=== PATIENT | male | born 1960 | race Caucasian/White ===

== ENCOUNTER → 2016-07-09 | Outpatient (CLI) | payer OTHER ==
[~2016-07-09] VITALS: Ht 180.3 cm; Wt 115.7 kg
[~2016-07-09] MED LIST: /ESOM40CA; /TAMS4CA; ABIL5TAB; AMBI10TA PO; AMIT25TA2; AMLO5TAB2 PO; ARTHROTEC; BENZ200C44 PO; BUPR150T3 PO; BUPR300T34 PO; BUSP1TAB PO; CEPH500C PO; CHOLPOW XX; CLAR1TAB2 PO; COUM2.5T11 PO; EFFE75CA75 PO; EMLA2.5C TOP; FLEXERIL; FLOM5CAP PO; FOLI1TAB2 PO; Flexeril PO; HYDR-3713 PO; HYDR-3719 PO; HYDR-3781 PO; HYDR10TA PO; IBUP800T; LIDOCAINE 2% INJ 100 MG/5 ML SYRINGE As Ordered ONE; LISI-538 PO; LISI10TA4 PO; LOMO2.5T PO; LOMOTA PO; LOPI600T; LORT5TAB PO; MELO7.5T6 PO; MIRT15TA3 PO; MUPI2OI TOP; NEUR300C; NEUR800T PO; NEXI40CA PO; NS 1,000 ML IV SCH; OMEP40CA2 PO; OXAZ10CA PO; OXYC-299 PO; PRIL40CA PO; PROPOFOL 500 MG/50 ML VIAL As Ordered ONE; QUET5TAB PO; SOMA350T; SOMA350T PO; TAMS0.4C PO; TAMS0.4C2 PO; TENO50TA; THIA100TA PO; TRAM50TA2; TRAZ100T; TRAZ50TA4 PO; TYLE325T5 PO; VENL37.5; VENL37TA PO; WELL75TA PO; WELLTAB38 PO; WELLTAB40 PO; ZANT300T PO; ZEST1TAB7 PO; [UNRECOGNIZED DRUG - OTHER]
--- NOTE | 2016-07-09 09:51 | ROOR ---
Patient Name: Juan Pablo Johnson Procedure Date: 07/09/2016 9:33 AM Date of : 1960 Age: 56 Room: [facility] Gender: Male Note Status: Finalized Procedure: Upper GI endoscopy + Biopsies Indications: Heartburn Providers: Rocky De Los Santos MD Referring MD: Jazmine LONG NP Requesting Provider: Medicines: Monitored Anesthesia Care Complications: No immediate complications. Procedure: Pre-Anesthesia Assessment: - The heart rate, respiratory rate, oxygen saturations, blood pressure, adequacy of pulmonary ventilation, and response to care were monitored throughout the procedure. The Endoscope was introduced through the mouth, and advanced to the second part of duodenum. The upper GI endoscopy was accomplished without difficulty. The patient tolerated the procedure well. Findings: The Z-line was irregular and was found 40 cm from the incisors. Multiple biopsies were obtained with cold forceps for evaluation to rule out Mcelroy's Esophagus randomly at the gastroesophageal junction. The exam of the esophagus was otherwise normal. The exam of the stomach was otherwise normal. The exam of the duodenum was otherwise normal. Impression: - Z-line irregular, 40 cm from the incisors. - Multiple biopsies were obtained at the gastroesophageal junction. - The examination was otherwise normal. Recommendation: - Patient has a contact number available for emergencies. The signs and symptoms of potential delayed complications were discussed with the patient. Return to normal activities tomorrow. Written discharge instructions were provided to the patient. - High fiber diet. - Discharge patient to home. - Follow an antireflux regimen. - Continue present medications. - Await pathology results. - Telephone GI clinic for pathology results in 1 week. - Repeat upper endoscopy for surveillance based on pathology results. - The findings and recommendations were discussed with the patient's family. Rocky De Los Santos MD Rocky De Los Santos MD 07/09/2016 9:51:01 AM This report has been signed electronically. Number of Addenda: 0 Note Initiated On: 07/09/2016 9:33 AM Estimated Blood Loss: Estimated blood loss: none.
--- NOTE | 2016-07-09 10:05 | ROOR ---
Patient Name: Juan Pablo Johnson Procedure Date: 07/09/2016 9:35 AM Date of : 1960 Age: 56 Room: [facility] Gender: Male Note Status: Finalized Procedure: Colonoscopy to Cecum Indications: Screening for colorectal malignant neoplasm, Incidental - Lower abdominal pain Providers: Rocky De Los Santos MD Referring MD: Jazmine LONG NP Requesting Provider: Medicines: Monitored Anesthesia Care Complications: No immediate complications. Procedure: Pre-Anesthesia Assessment: - The heart rate, respiratory rate, oxygen saturations, blood pressure, adequacy of pulmonary ventilation, and response to care were monitored throughout the procedure. The Colonoscope was introduced through the anus and advanced to the cecum, identified by appendiceal orifice and ileocecal valve. The colonoscopy was performed without difficulty. The patient tolerated the procedure well. The quality of the bowel preparation was good. Findings: The perianal and digital rectal examinations were normal. Non-bleeding internal hemorrhoids were found during retroflexion. The hemorrhoids were small and Grade I (internal hemorrhoids that do not prolapse). Multiple small and large-mouthed diverticula were found in the recto-sigmoid colon, sigmoid colon and descending colon. The exam was otherwise without abnormality on direct and retroflexion views. Impression: - Non-bleeding internal hemorrhoids. - Diverticulosis in the recto-sigmoid colon, in the sigmoid colon and in the descending colon. - The examination was otherwise normal on direct and retroflexion views. - No specimens collected. - The exam was otherwise normal to the cecum. Recommendation: - Patient has a contact number available for emergencies. The signs and symptoms of potential delayed complications were discussed with the patient. Return to normal activities tomorrow. Written discharge instructions were provided to the patient. - High fiber diet. - Discharge patient to home. - Continue present medications. - Repeat colonoscopy in 10 years for screening purposes. - Return to referring physician. - The findings and recommendations were discussed with the patient's family. Rocky De Los Santos MD Rocky De Los Santos MD 07/09/2016 10:05:07 AM This report has been signed electronically. Number of Addenda: 0 Note Initiated On: 07/09/2016 9:35 AM Estimated Blood Loss: Estimated blood loss: none.
[2016-07-09 10:35] VITALS: BP 150/86
== END | disposition home or self-care (01) ==
LOC: M OPP 08:00
PROVIDERS: ATTEND Internal Medicine Gastroenterology
DX: R10.32 Left lower quadrant pain (principal); K64.0 First degree hemorrhoids; K57.30 Diverticulosis of large intestine without perforation or abscess without bleeding; R12 Heartburn; K22.8 Other specified diseases of esophagus; I10 Essential (primary) hypertension; Z86.14 Personal history of Methicillin resistant Staphylococcus aureus infection; K21.9 Gastro-esophageal reflux disease without esophagitis; M17.0 Bilateral primary osteoarthritis of knee; M54.5 Low back pain; F41.9 Anxiety disorder, unspecified; F32.9 Major depressive disorder, single episode, unspecified; F03.90 Unspecified dementia, unspecified severity, without behavioral disturbance, psychotic disturbance, mood disturbance, and anxiety; R06.83 Snoring; F17.210 Nicotine dependence, cigarettes, uncomplicated; Z89.021 Acquired absence of right finger(s); Z88.8 Allergy status to other drugs, medicaments and biological substances; Z79.899 Other long term (current) drug therapy

== ENCOUNTER → 2016-07-10 | Outpatient (REF) | payer OTHER ==
[~2016-07-10] MED LIST changes: -LIDOCAINE 2% INJ 100 MG/5 ML SYRINGE As Ordered ONE; -NS 1,000 ML IV SCH; -PROPOFOL 500 MG/50 ML VIAL As Ordered ONE
[2016-07-10 17:17] LABS: ANION GAP 12 MEQ/L (8-16); BLOOD UREA NITROGEN 12 MG/DL (7-18); CALCIUM LEVEL 8.4 MG/DL (8.5-10.1); CARBON DIOXIDE LEVEL 22 MEQ/L (21-32); CHLORIDE LEVEL 108 MEQ/L (98-107); CREATININE FOR GFR 0.92 MG/DL (0.70-1.30); GLOMERULAR FILTRATION RATE > 60.0 (>56); GLUCOSE, FASTING 84 MG/DL (70-105); POTASSIUM SERUM 4.4 MEQ/L (3.5-5.1); SODIUM LEVEL 142 MEQ/L (136-145)
[2016-07-10 18:34] LABS: BASO % 0.5 % (0.0-1.0); EOS # 0.1 K/mm3 (0.0-0.50); EOS % 2.4 % (0.0-3.0); LARGE UNSTAINED CELL # 0.1 K/mm3 (0.0-0.4); LARGE UNSTAINED CELL % 2.7 % (0.0-4.0); LYMPH % 53.6 % (24.0-44.0); MEAN CORPUSCULAR HEMOGLOBIN 31.5 pg (27.0-33.0); MEAN CORPUSCULAR HGB CONC 32.9 g/dl (32.0-36.5); MEAN CORPUSCULAR VOLUME 95.8 fl (80.0-96.0); MONO # 0.2 K/mm3 (0.0-0.8); MONO % 5.2 % (0.0-5.0); NEUTROPHILS # 1.3 K/mm3 (1.8-7.7); NEUTROPHILS % 35.5 % (36.0-66.0); PLATELET COUNT, AUTOMATED 312 k/mm3 (150-450); RED CELL DISTRIBUTION WIDTH 12.6 % (11.5-14.5); WHITE BLOOD COUNT 3.5 K/mm3 (4.0-10.0)
== END ==
LOC: M LAB REF 16:07
PROVIDERS: ATTEND Nurse Practitioner Family
DX: R06.02 Shortness of breath (principal)

== ENCOUNTER → 2016-07-10 | Outpatient (CLI) | payer OTHER ==
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
== END ==
LOC: M PAIN 13:20
PROVIDERS: ATTEND Nurse Practitioner Family
DX: Z09 Encounter for follow-up examination after completed treatment for conditions other than malignant neoplasm (principal); G89.29 Other chronic pain; M47.817 Spondylosis without myelopathy or radiculopathy, lumbosacral region; M46.1 Sacroiliitis, not elsewhere classified; F31.9 Bipolar disorder, unspecified; K21.9 Gastro-esophageal reflux disease without esophagitis; M06.9 Rheumatoid arthritis, unspecified; F17.200 Nicotine dependence, unspecified, uncomplicated; Z88.5 Allergy status to narcotic agent; Z88.8 Allergy status to other drugs, medicaments and biological substances; Z79.891 Long term (current) use of opiate analgesic; Z79.899 Other long term (current) drug therapy; Z86.59 Personal history of other mental and behavioral disorders

== ENCOUNTER → 2016-07-22 | Outpatient (CLI) | payer OTHER ==
[~2016-07-22] MED LIST changes: +ALBU17IN INH; +TESS100C PO
[2016-07-22 12:55] LABS: BASO % 0.4 % (0.0-1.0); EOS # 0.1 K/mm3 (0.0-0.50); EOS % 1.9 % (0.0-3.0); LARGE UNSTAINED CELL # 0.2 K/mm3 (0.0-0.4); LARGE UNSTAINED CELL % 4.4 % (0.0-4.0); LYMPH # 1.9 K/mm3 (1.5-4.5); LYMPH % 35.2 % (24.0-44.0); MEAN CORPUSCULAR HGB CONC 32.1 g/dl (32.0-36.5); MEAN CORPUSCULAR VOLUME 96.6 fl (80.0-96.0); MONO # 0.3 K/mm3 (0.0-0.8); MONO % 7.1 % (0.0-5.0); NEUTROPHILS # 2.4 K/mm3 (1.8-7.7); PLATELET COUNT, AUTOMATED 187 k/mm3 (150-450); RED CELL DISTRIBUTION WIDTH 12.6 % (11.5-14.5); WHITE BLOOD COUNT 4.7 K/mm3 (4.0-10.0)
[2016-07-22 13:10] LABS: ANION GAP 6 MEQ/L (8-16); BLOOD UREA NITROGEN 14 MG/DL (7-18); CALCIUM LEVEL 8.9 MG/DL (8.5-10.1); CARBON DIOXIDE LEVEL 30 MEQ/L (21-32); CHLORIDE LEVEL 105 MEQ/L (98-107); CREATININE FOR GFR 0.93 MG/DL (0.70-1.30); GLOMERULAR FILTRATION RATE > 60.0 (>56); GLUCOSE, FASTING 107 MG/DL (70-105); POTASSIUM SERUM 4.3 MEQ/L (3.5-5.1); SODIUM LEVEL 141 MEQ/L (136-145)
== END ==
LOC: M LAB 12:01
PROVIDERS: ATTEND Nurse Practitioner Family
DX: R06.02 Shortness of breath (principal)

== ENCOUNTER → 2016-07-30 | Outpatient (CLI) | payer OTHER ==
[~2016-07-30] MED LIST changes: +BUPIVACAINE HCL 0.25% 30 ML VIAL As Ordered ONE; +ISOVUE-M 300 61% 15ML VIAL (Q9967) As Ordered ONE; +LIDOCAINE 1% SDV INJ 30 ML VIAL As Ordered ONE; +TRIAMCINOLONE ACETONIDE SUSP 40 MG/ML VIAL (J3301) As Ordered ONE; +diazePAM 5 MG TAB As Ordered ONE; +oxyCODONE 5MG TAB As Ordered ONE
--- NOTE | 2016-07-30 10:02 | REP ---
PARTIAL SI JOINT SERIES: Three views. HISTORY: Injection procedure for pain. 29 seconds of fluoroscopy time is reported. FINDINGS: A sequence of three last image hold fluoroscopic spot radiographs of the SI joints bilaterally document needle position and contrast injection associated with SI joint injection procedure. Signed by Magdi Morris MD 07/30/2016 10:14 A
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
== END ==
LOC: M PAIN 08:40
PROVIDERS: ATTEND Anesthesiology
DX: G89.29 Other chronic pain (principal); M46.1 Sacroiliitis, not elsewhere classified; M53.88 Other specified dorsopathies, sacral and sacrococcygeal region; F31.9 Bipolar disorder, unspecified; K21.9 Gastro-esophageal reflux disease without esophagitis; M06.9 Rheumatoid arthritis, unspecified; Z86.59 Personal history of other mental and behavioral disorders; Z88.8 Allergy status to other drugs, medicaments and biological substances; Z79.891 Long term (current) use of opiate analgesic; Z79.899 Other long term (current) drug therapy
CPT/HCPCS: G0260; J3301; Q9967

== ENCOUNTER 2016-09-12 17:13 | Emergency (ER) | payer OTHER ==
[~2016-09-12] VITALS: Ht 180.3 cm; Wt 112.0 kg
[~2016-09-12 17:13] MED LIST changes: -BUPIVACAINE HCL 0.25% 30 ML VIAL As Ordered ONE; -ISOVUE-M 300 61% 15ML VIAL (Q9967) As Ordered ONE; -LIDOCAINE 1% SDV INJ 30 ML VIAL As Ordered ONE; -TRIAMCINOLONE ACETONIDE SUSP 40 MG/ML VIAL (J3301) As Ordered ONE; -diazePAM 5 MG TAB As Ordered ONE; -oxyCODONE 5MG TAB As Ordered ONE
[2016-09-12] MEDS ORDERED: LIDOCAINE 2% MDV 20 ML VIAL As Ordered ONE (17:55)
[2016-09-12 19:16] VITALS: BP 158/98
== END 2016-09-12 19:24 | disposition home or self-care (01) ==
LOC: M ED 17:46
DX: S61.210A Laceration without foreign body of right index finger without damage to nail, initial encounter (principal); W25.XXXA Contact with sharp glass, initial encounter; Y92.89 Other specified places as the place of occurrence of the external cause; Y93.89 Activity, other specified; Y99.8 Other external cause status

== ENCOUNTER 2016-11-27 10:13 | Emergency (ER) | payer OTHER ==
[~2016-11-27] VITALS: Ht 180.3 cm; Wt 250.0 kg
[~2016-11-27 10:13] MED LIST changes: -BENZ200C44 PO; +BENZ200C53 PO; -COUM2.5T11 PO; +COUM2.5T17 PO; -FOLI1TAB2 PO; +FOLI1TAB4 PO; -MELO7.5T6 PO; +MELO7.5T7 PO; -OXAZ10CA PO; +OXAZ10CA3 PO; +OXYC-141 PO; -OXYC-299 PO; +TRAZ50TA11 PO; -TRAZ50TA4 PO
[2016-11-27] MEDS ORDERED: CARI350T (10:21)
[2016-11-27] MEDS ORDERED: KETOROLAC 60 MG/2 ML VIAL (J1885) IM ONE (10:45)
[2016-11-27] MEDS ORDERED: LIDO5DIS41 TD (10:56)
[2016-11-27 11:04] VITALS: BP 145/99
== END 2016-11-27 11:15 | disposition home or self-care (01) ==
LOC: M ED 10:13
DX: M54.5 Low back pain (principal); I10 Essential (primary) hypertension; F32.9 Major depressive disorder, single episode, unspecified; N40.0 Benign prostatic hyperplasia without lower urinary tract symptoms; F41.9 Anxiety disorder, unspecified; F19.10 Other psychoactive substance abuse, uncomplicated; Z87.442 Personal history of urinary calculi; F17.200 Nicotine dependence, unspecified, uncomplicated; Z79.899 Other long term (current) drug therapy; Z88.6 Allergy status to analgesic agent
CPT/HCPCS: 96372; 99282; J1885

== ENCOUNTER → 2016-12-10 | Outpatient (CLI) | payer OTHER ==
[~2016-12-10] MED LIST changes: +ACETGRA; +CARI350T; +IBUP-1022 PO; +LIDO5DIS41 TD; +MELO15TA4
--- NOTE | 2016-12-10 11:51 | REP ---
LUMBAR SPINE, EIGHT VIEWS: HISTORY: Back pain. COMPARISON: 05/18/2014. There is no acute fracture or subluxation. The intervertebral discs are decreased in height. Vacuum phenomenon is present at the L5-S1 level. These findings are consistent with disc degeneration. Osteophytes are present throughout the lumbar spine. There is sclerosis of the end plates of the L4-S1 vertebral bodies. There is narrowing of the L4-5 and L5-S1 facet joints. IMPRESSION: Degenerative change as described above. Signed by Tyrell Duarte MD 12/10/2016 11:54 A
== END ==
LOC: M RAD 11:13
PROVIDERS: ATTEND Nurse Practitioner Family
DX: M51.36 Other intervertebral disc degeneration, lumbar region (principal)

== ENCOUNTER 2017-02-03 11:43 | Emergency (ER) | payer OTHER ==
[~2017-02-03] VITALS: Ht 180.3 cm; Wt 111.6 kg
[~2017-02-03 11:43] MED LIST changes: -ACETGRA; -IBUP-1022 PO; -MELO15TA4
[2017-02-03] MEDS ORDERED: ACETGRA (12:13)
[2017-02-03] MEDS ORDERED: MELO15TA4 (12:13)
[2017-02-03] MEDS ORDERED: PERCOCET 5MG/325MG TAB PO ONE (12:30)
--- NOTE | 2017-02-03 13:42 | REP ---
LEFT RIB SERIES: Four views of the left ribs performed. There appear to be old healed fractures of mid left ribs but no acute fracture is seen. An accompanying view of the chest demonstrates no acute infiltrate or pneumothorax. The heart is normal in size. IMPRESSION: No evidence of acute left rib fracture. Signed by Michel Nicholson MD 02/04/2017 07:53 P
[2017-02-03] MEDS ORDERED: IBUP-1022 PO (14:00)
[2017-02-03 14:12] VITALS: BP 142/93
== END 2017-02-03 14:18 | disposition home or self-care (01) ==
LOC: M ED 11:43
DX: S20.212A Contusion of left front wall of thorax, initial encounter (principal); S20.222A Contusion of left back wall of thorax, initial encounter; W19.XXXA Unspecified fall, initial encounter; Y92.099 Unspecified place in other non-institutional residence as the place of occurrence of the external cause; Y93.9 Activity, unspecified; Y99.9 Unspecified external cause status; I10 Essential (primary) hypertension; N40.0 Benign prostatic hyperplasia without lower urinary tract symptoms; F17.200 Nicotine dependence, unspecified, uncomplicated; Z79.899 Other long term (current) drug therapy; Z88.8 Allergy status to other drugs, medicaments and biological substances

== ENCOUNTER 2017-03-31 12:55 | Emergency (ER) | payer MEDICAID, OTHER ==
[~2017-03-31] VITALS: Ht 182.9 cm; Wt 113.6 kg
[~2017-03-31 12:55] MED LIST changes: +ACETGRA; +IBUP-1022 PO; +MELO15TA4
[2017-03-31] MEDS ORDERED: ACET120S (13:02)
--- NOTE | 2017-03-31 15:58 | REP ---
Chest x-ray: Two views: History: Cough. Comparison study February 03, 2017. Findings: The lungs are well inflated and free of infiltrate. Cardiomediastinal silhouette is unremarkable and unchanged. Pulmonary vasculature is not increased. No bony abnormalities seen. Impression: No active disease. Signed by Magdi Morris MD 03/31/2017 05:08 P
[2017-03-31] MEDS ORDERED: ZITHTAB PO (16:15)
[2017-03-31 16:44] VITALS: BP 133/90
== END 2017-03-31 16:45 | disposition home or self-care (01) ==
LOC: M ED 12:55
DX: J20.9 Acute bronchitis, unspecified (principal); I51.9 Heart disease, unspecified; I10 Essential (primary) hypertension; F17.200 Nicotine dependence, unspecified, uncomplicated; Z79.899 Other long term (current) drug therapy; Z88.1 Allergy status to other antibiotic agents

== ENCOUNTER 2017-04-17 02:16 | Emergency (ER) | payer OTHER ==
[2017-04-17] MEDS: ACETAMINOPHEN TAB 650MG DOSE (2X325MG) PO (04:30)
== END 2017-04-17 05:03 | disposition home or self-care (01) ==
LOC: M ED 02:16
DX: G89.29 Other chronic pain (principal); Z76.5 Malingerer [conscious simulation]; I10 Essential (primary) hypertension; K21.9 Gastro-esophageal reflux disease without esophagitis; Z87.898 Personal history of other specified conditions; Z86.59 Personal history of other mental and behavioral disorders; Z96.651 Presence of right artificial knee joint; Z79.899 Other long term (current) drug therapy; Z88.6 Allergy status to analgesic agent
CPT/HCPCS: 73560

== ENCOUNTER 2017-07-23 03:12 | Emergency (ER) | payer OTHER, MEDICAID ==
[2017-07-23] MEDS: NS 1,000 ML IV (03:45)
[2017-07-23 03:57] LABS: ETHYL ALCOHOL (ETHANOL) 0.328 % (0.000-0.010)
== END 2017-07-23 08:10 | disposition home or self-care (01) ==
LOC: M ED 03:12
DX: F10.929 Alcohol use, unspecified with intoxication, unspecified (principal); F14.929 Cocaine use, unspecified with intoxication, unspecified; Z79.899 Other long term (current) drug therapy; Z88.8 Allergy status to other drugs, medicaments and biological substances
CPT/HCPCS: 73560

== ENCOUNTER → 2017-08-01 | Outpatient (CLI) | payer OTHER ==
[2017-08-01 11:32] LABS: CREATININE FOR GFR 1.01 MG/DL (0.70-1.30); GLOMERULAR FILTRATION RATE > 60.0 (>56)
[2017-08-01 11:32] LABS: BLOOD UREA NITROGEN 16 MG/DL (7-18)
== END ==
LOC: M LAB 10:29
DX: M96.1 Postlaminectomy syndrome, not elsewhere classified (principal); M79.1 Myalgia; M47.817 Spondylosis without myelopathy or radiculopathy, lumbosacral region
CPT/HCPCS: 82565

== ENCOUNTER → 2017-08-04 | Outpatient (CLI) | payer OTHER | LOC: M PLARAD 13:39 | DX: M96.1 Postlaminectomy syndrome, not elsewhere classified (principal); M79.1 Myalgia; M47.819 Spondylosis without myelopathy or radiculopathy, site unspecified | CPT/HCPCS: 72158 ==

== ENCOUNTER 2017-08-26 21:30 | Emergency (ER) | payer OTHER ==
[2017-08-26 22:02] LABS: BASO # 0.1 10^3/uL (0.0-0.2); BASO % 0.5 % (0.0-1.0); EOS % 0.4 % (0.0-3.0); HEMATOCRIT 43.1 % (42.0-52.0); HEMOGLOBIN 14.5 g/dl (13.5-17.5); IMMATURE GRANULOCYTE % 0.4 % (0-3.0); LYMPH # 3.5 10^3/uL (1.5-4.5); LYMPH % 30.6 % (24.0-44.0); MEAN CORPUSCULAR HEMOGLOBIN 30.7 pg (27.0-33.0); MEAN CORPUSCULAR HGB CONC 33.6 g/dl (32.0-36.5); MEAN CORPUSCULAR VOLUME 91.1 fl (80.0-96.0); MONO # 1.1 10^3/uL (0.0-0.8); MONO % 9.6 % (0.0-5.0); NEUTROPHILS # 6.6 10^3/uL (1.8-7.7); NEUTROPHILS % 58.5 % (36.0-66.0); PLATELET COUNT, AUTOMATED 238 10^3/uL (150-450); RED BLOOD COUNT 4.73 10^6/uL (4.30-6.10); RED CELL DISTRIBUTION WIDTH 12.8 % (11.5-14.5); WHITE BLOOD COUNT 11.3 10^3/uL (4.0-10.0)
[2017-08-26 22:12] LABS: INR 0.91; PROTHROMBIN TIME 12.3 SECONDS (12.4-14.5)
[2017-08-26 22:30] LABS: ANION GAP 10 MEQ/L (8-16); BLOOD UREA NITROGEN 17 MG/DL (7-18); CALCIUM LEVEL 8.8 MG/DL (8.5-10.1); CARBON DIOXIDE LEVEL 25 MEQ/L (21-32); CHLORIDE LEVEL 104 MEQ/L (98-107); CPK CREATINE PHOSPHOKINASE 782 U/L (39-308); GLUCOSE, FASTING 92 MG/DL (70-100); POTASSIUM SERUM 3.8 MEQ/L (3.5-5.1); SODIUM LEVEL 139 MEQ/L (136-145)
[2017-08-26 22:31] LABS: CK-MB VALUE MASS 33.3 NG/ML (<3.6); MB/CK RELATIVE INDEX 4.25 (< OR =4)
[2017-08-26 22:33] LABS: TROPONIN I 1.66 NG/ML (< 0.10)
[2017-08-26] MEDS: NITROGLYCERIN 0.4 MG SUBL TABLET SL ×3 (22:54→23:32)
[2017-08-26] MEDS: ASPIRIN 81 MG CHEW TABLET PO (22:59)
[2017-08-26 23:00] LABS: PARTIAL THROMBOPLASTIN TIME 27.1 SECONDS (26.8-37.9)
[2017-08-26] MEDS: HEPARIN SOD (PORCINE) 5000 UNITS/ML VIAL IV (23:00)
[2017-08-26] MEDS: HEPARIN DRIP 25,000 UNITS in APPROPRIATE DILUENT 1 EA IV (23:05)
== END 2017-08-27 00:38 | disposition short-term general hospital (02) ==
LOC: M ED 08-27 00:38
DX: I21.4 Non-ST elevation (NSTEMI) myocardial infarction (principal); Z79.899 Other long term (current) drug therapy; Z88.8 Allergy status to other drugs, medicaments and biological substances; F19.10 Other psychoactive substance abuse, uncomplicated; F17.210 Nicotine dependence, cigarettes, uncomplicated; F14.20 Cocaine dependence, uncomplicated
CPT/HCPCS: 71045

== ENCOUNTER → 2017-10-09 | Outpatient (CLI) | payer OTHER ==
[2017-10-09 09:59] LABS: CHOLESTEROL LEVEL 113 MG/DL (<200); CHOLESTEROL RISK RATIO 2.306 (<5); HDL CHOLESTEROL 49 MG/DL (>40); LDL CHOLESTEROL 27.6 MG/DL (<100); NON-HDL-C 64 MG/DL; TRIGLYCERIDES LEVEL 182 MG/DL (<150)
== END ==
LOC: M LAB 08:39
DX: I25.10 Atherosclerotic heart disease of native coronary artery without angina pectoris (principal)
CPT/HCPCS: 80061

== ENCOUNTER 2018-01-24 00:50 | Emergency (ER) | payer OTHER ==
[2018-01-24] MEDS: NS 1,000 ML IV (01:15)
[2018-01-24 01:23] LABS: HEMATOCRIT 44.5 % (42.0-52.0); HEMOGLOBIN 15.1 g/dl (13.5-17.5); MEAN CORPUSCULAR HEMOGLOBIN 32.5 pg (27.0-33.0); MEAN CORPUSCULAR HGB CONC 33.9 g/dl (32.0-36.5); MEAN CORPUSCULAR VOLUME 95.9 fl (80.0-96.0); PLATELET COUNT, AUTOMATED 216 10^3/uL (150-450); RED BLOOD COUNT 4.64 10^6/uL (4.30-6.10); RED CELL DISTRIBUTION WIDTH 12.7 % (11.5-14.5); WHITE BLOOD COUNT 7.4 10^3/uL (4.0-10.0)
[2018-01-24 01:48] LABS: AMPHETAMINES LEVEL URINE NEGATIVE (NEGATIVE); BARBITURATES URINE NEGATIVE (NEGATIVE); BENZODIAZEPINES URINE NEGATIVE (NEGATIVE); CANNABINOIDS URINE NEGATIVE (NEGATIVE); COCAINE METABOLITE URINE POSITIVE (NEGATIVE); METHADONE URINE NEGATIVE (NEGATIVE); OPIATES URINE NEGATIVE (NEGATIVE); PHENCYCLIDINE URINE NEGATIVE (NEGATIVE)
[2018-01-24 02:06] LABS: ALBUMIN 3.7 GM/DL (3.2-5.2); ALBUMIN/GLOBULIN RATIO 1.12 (1.00-1.93); ALKALINE PHOSPHATASE 57 U/L (45-117); ALT/SGPT 36 U/L (12-78); ANION GAP 14 MEQ/L (8-16); AST/SGOT 36 U/L (7-37); BILIRUBIN,DIRECT < 0.1 MG/DL (0.0-0.2); BILIRUBIN,TOTAL 0.3 MG/DL (0.2-1.0); BLOOD UREA NITROGEN 11 MG/DL (7-18); CALCIUM LEVEL 7.9 MG/DL (8.5-10.1); CARBON DIOXIDE LEVEL 19 MEQ/L (21-32); CHLORIDE LEVEL 108 MEQ/L (98-107); CPK CREATINE PHOSPHOKINASE 225 U/L (39-308); ETHYL ALCOHOL (ETHANOL) 0.288 % (0.000-0.010); GLOMERULAR FILTRATION RATE > 60.0 (>56); GLUCOSE, FASTING 92 MG/DL (70-100); SALICYLATE LEVEL 4.2 MG/DL (5.0-30.0); SODIUM LEVEL 141 MEQ/L (136-145)
[2018-01-24 02:07] LABS: ACETAMINOPHEN LEVEL < 2.0 UG/ML (10.0-30.0)
[2018-01-24] MEDS ORDERED: MULTIVITAMIN -ADULT INJECTION 10 ML, THIAMINE INJection 100 MG, FOLIC ACID 1 MG in NS 1... IV (02:30)
[2018-01-24] MEDS: diphenhydrAMINE INJ 50MG/ML VIAL (J1200) IM (03:07)
[2018-01-24] MEDS: HALOPERIDOL 5 MG/ML VIAL (J1630) IM (03:07)
== END 2018-01-24 10:50 | disposition home or self-care (01) ==
LOC: M ED 00:50
DX: F10.988 Alcohol use, unspecified with other alcohol-induced disorder (principal); F14.10 Cocaine abuse, uncomplicated; F99 Mental disorder, not otherwise specified; R94.31 Abnormal electrocardiogram [ECG] [EKG]; I25.10 Atherosclerotic heart disease of native coronary artery without angina pectoris; I10 Essential (primary) hypertension; K21.9 Gastro-esophageal reflux disease without esophagitis; F33.9 Major depressive disorder, recurrent, unspecified; M54.9 Dorsalgia, unspecified; G89.29 Other chronic pain; Z95.5 Presence of coronary angioplasty implant and graft; Z88.8 Allergy status to other drugs, medicaments and biological substances
CPT/HCPCS: J1200

== ENCOUNTER 2018-04-28 00:43 | Emergency (ER) | payer OTHER ==
[~2018-04-28] VITALS: Ht 182.9 cm; Wt 109.1 kg
[~2018-04-28 00:43] MED LIST changes: +ACET120S; +ACET1TAB16 PO; -AMLO5TAB2 PO; +AMLO5TAB6 PO; -BENZ200C53 PO; +BENZ200C70 PO; +CARI1TAB7; -CARI350T; +DULO1CAP3; +DULO30CA PO; +EFFE75CA2 PO; -EFFE75CA75 PO; +FLOM0.4C39 PO; -FLOM5CAP PO; +FOLI1TAB11 PO; -FOLI1TAB4 PO; +GABA-845 PO; +GABA800T4; -HYDR-3781 PO; +HYDR2.5T34 PO; +HYDRO50TAB PO; +MELO15TA28; +MELO15TA28 PO; -MELO15TA4; +NICO21PAT TD; +QUET1TAB8 PO; +TRAZ-160 PO; -TRAZ50TA11 PO; +VENTAER INH; -ZANT300T PO; +ZANT300T9 PO; +ZITHTAB PO; +ZOLP10TA2; +ZOLP5TAB PO
[2018-04-28 01:27] VITALS: BP 128/84
--- NOTE | 2018-04-28 02:15 | REP ---
Clinical: Right hip trauma Technique: Frontal view of the pelvis with neutral and frog lateral views of the right hip. Findings: Osseous structures and joint spaces are intact and normal. Hip joints appear symmetric on frontal pelvic radiograph. No acute fracture dislocation. No evidence for healed injury. No significant degenerative or congenital abnormalities are appreciated. Surrounding soft tissues are unremarkable. Impression: Normal pelvis and right hip series. Electronically Signed by Nikita Smith MD 04/28/2018 02:06 A
== END 2018-04-28 02:12 | disposition home or self-care (01) ==
LOC: M ED 00:43
DX: M25.551 Pain in right hip (principal); F10.120 Alcohol abuse with intoxication, uncomplicated; W19.XXXA Unspecified fall, initial encounter; Y92.410 Unspecified street and highway as the place of occurrence of the external cause; I10 Essential (primary) hypertension; K21.9 Gastro-esophageal reflux disease without esophagitis; F19.10 Other psychoactive substance abuse, uncomplicated; J42 Unspecified chronic bronchitis; Z88.8 Allergy status to other drugs, medicaments and biological substances; Z79.899 Other long term (current) drug therapy

== ENCOUNTER 2018-05-01 21:57 | Emergency (ER) | payer OTHER ==
[~2018-05-01] VITALS: Ht 180.3 cm; Wt 109.1 kg
[2018-05-01] MEDS ORDERED: LISI40TA PO (22:17)
[2018-05-01] MEDS ORDERED: ATOR1TAB21 PO (22:17)
[2018-05-01] MEDS ORDERED: SM A1TAB PO (22:17)
[2018-05-01] MEDS ORDERED: METO1TAB32 PO (22:17)
[2018-05-01] MEDS ORDERED: PANT40TA3 PO (22:17)
[2018-05-01] MEDS ORDERED: CLOP75TA2 PO (22:17)
[2018-05-01] MEDS ORDERED: GI COCKTAIL 50ML BTL(HYOSCYAMINE/MAALOX/LIDOCAINE VISCOUS)(1:3:1) PO ONE (22:30)
[2018-05-01] MEDS ORDERED: ASPIRIN 81 MG CHEW TABLET PO ONE (22:30)
[2018-05-01 22:33] LABS: BASO # 0.1 10^3/uL (0.0-0.2); BASO % 0.6 % (0.0-1.0); EOS # 0.1 10^3/uL (0.0-0.50); EOS % 1.3 % (0.0-3.0); HEMATOCRIT 47.7 % (42.0-52.0); HEMOGLOBIN 16.4 g/dl (13.5-17.5); LYMPH # 3.1 10^3/uL (1.5-4.5); LYMPH % 40.2 % (24.0-44.0); MEAN CORPUSCULAR HEMOGLOBIN 32.1 pg (27.0-33.0); MEAN CORPUSCULAR HGB CONC 34.4 g/dl (32.0-36.5); MEAN CORPUSCULAR VOLUME 93.3 fl (80.0-96.0); MONO # 0.6 10^3/uL (0.0-0.8); MONO % 7.8 % (0.0-5.0); NEUTROPHILS # 3.9 10^3/uL (1.8-7.7); NEUTROPHILS % 49.8 % (36.0-66.0); PLATELET COUNT, AUTOMATED 342 10^3/uL (150-450); RED BLOOD COUNT 5.11 10^6/uL (4.30-6.10); WHITE BLOOD COUNT 7.7 10^3/uL (4.0-10.0)
[2018-05-01] MEDS ORDERED: LABETALOL HCL 100 MG/20 ML VIAL IV STA (23:01)
[2018-05-01 23:10] LABS: INR 0.97
[2018-05-01 23:19] LABS: AMPHETAMINES LEVEL URINE NEGATIVE (NEGATIVE); BARBITURATES URINE NEGATIVE (NEGATIVE); BENZODIAZEPINES URINE NEGATIVE (NEGATIVE); CANNABINOIDS URINE NEGATIVE (NEGATIVE); COCAINE METABOLITE URINE POSITIVE (NEGATIVE); METHADONE URINE NEGATIVE (NEGATIVE); OPIATES URINE NEGATIVE (NEGATIVE); PHENCYCLIDINE URINE NEGATIVE (NEGATIVE)
[2018-05-01 23:26] LABS: BLOOD UREA NITROGEN 10 MG/DL (7-18); CALCIUM LEVEL 8.6 MG/DL (8.5-10.1); CARBON DIOXIDE LEVEL 20 MEQ/L (21-32); CHLORIDE LEVEL 105 MEQ/L (98-107); CPK CREATINE PHOSPHOKINASE 355 U/L (39-308); CREATININE FOR GFR 0.96 MG/DL (0.70-1.30); ETHYL ALCOHOL (ETHANOL) 0.128 % (0.000-0.010); GLOMERULAR FILTRATION RATE > 60.0 (>56); GLUCOSE, FASTING 83 MG/DL (70-100); POTASSIUM SERUM 3.9 MEQ/L (3.5-5.1); SODIUM LEVEL 139 MEQ/L (136-145); TROPONIN I < 0.02 NG/ML (< 0.10)
[2018-05-01] MEDS ORDERED: NITROGLYCERIN 0.4 MG SUBL TABLET SL PRN (23:30)
[2018-05-02] MEDS ORDERED: PANTOPRAZOLE 40MG INJ (PROTONIX) (C9113) IV ONE
[2018-05-02 03:43] LABS: CPK CREATINE PHOSPHOKINASE 308 U/L (39-308); MB/CK RELATIVE INDEX 1.27 (< OR =4); TROPONIN I < 0.02 NG/ML (< 0.10)
[2018-05-02 04:46] VITALS: BP 116/68
--- NOTE | 2018-05-02 07:59 | ECGEPIP ---
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
--- NOTE | 2018-05-02 08:08 | ECGEPIP ---
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
--- NOTE | 2018-05-02 08:42 | REP ---
Portable chest x-ray: Single view. History: Chest pain. Comparison study: September 07, 2017. Findings: EKG monitoring electrodes overlie the chest. The lungs are well inflated and clear. Pleural angles are sharp. Heart size is normal. The aorta slightly tortuous. Pulmonary vasculature is not increased. No significant bony abnormality is seen. There is an old healed rib fracture on the left. Impression: No active disease. Electronically Signed by Magdi Morris MD 05/02/2018 08:34 A
== END 2018-05-02 05:04 | disposition home or self-care (01) ==
LOC: M ED 21:57
DX: F10.10 Alcohol abuse, uncomplicated (principal); F11.10 Opioid abuse, uncomplicated; Z59.0 Homelessness; I10 Essential (primary) hypertension; G89.29 Other chronic pain; I25.10 Atherosclerotic heart disease of native coronary artery without angina pectoris; Z79.899 Other long term (current) drug therapy; Z79.82 Long term (current) use of aspirin; Z88.8 Allergy status to other drugs, medicaments and biological substances; F17.210 Nicotine dependence, cigarettes, uncomplicated
CPT/HCPCS: 71045; 80048; 80307; 82550; 82553; 85025; 85610; 93005; 93041; 94760; 96374; 99285; C9113; G0480

== ENCOUNTER 2018-05-25 10:22 | Inpatient (IN) | payer OTHER ==
[~2018-05-25] VITALS: Ht 180.3 cm; Wt 112.4 kg
[~2018-05-25 10:22] MED LIST changes: +ATOR1TAB21 PO; +CARI1TAB7 PO; +CLOP75TA2 PO; -DULO1CAP3; +DULO1CAP3 PO; -GABA800T4; +GABA800T4 PO; +LISI40TA PO; +METO1TAB32 PO; +PANT40TA3 PO; +SM A1TAB PO; -ZOLP10TA2; +ZOLP10TA2 PO
[2018-05-25] MEDS ORDERED: NS 1,000 ML IV ONE ×2 (10:45→11:45)
[2018-05-25 10:54] LABS: BASO % 0.3 % (0.0-1.0); EOS # 0.2 10^3/uL (0.0-0.50); EOS % 2.3 % (0.0-3.0); HEMOGLOBIN 14.3 g/dl (13.5-17.5); LYMPH # 1.8 10^3/uL (1.5-4.5); LYMPH % 24.2 % (24.0-44.0); MEAN CORPUSCULAR HGB CONC 33.3 g/dl (32.0-36.5); MEAN CORPUSCULAR VOLUME 93.1 fl (80.0-96.0); MONO # 0.7 10^3/uL (0.0-0.8); MONO % 9.6 % (0.0-5.0); NEUTROPHILS # 4.6 10^3/uL (1.8-7.7); NEUTROPHILS % 63.2 % (36.0-66.0); PLATELET COUNT, AUTOMATED 270 10^3/uL (150-450); RED BLOOD COUNT 4.62 10^6/uL (4.30-6.10); WHITE BLOOD COUNT 7.3 10^3/uL (4.0-10.0)
--- NOTE | 2018-05-25 11:08 | REP ---
Chest one-view HISTORY: Overdose Comparison: 05/01/2018 The lungs are clear. The heart is normal in size. The pulmonary vasculature is normal in appearance. Impression: No acute disease. Electronically Signed by Tyrell Duarte MD 05/25/2018 11:00 A
[2018-05-25 11:09] LABS: ABG BASE EXCESS -1.4 (-2.0-2.0); ABG HCO3 21.7 MEQ/L (22.0-26.0); ABG O2 SATURATION 95.9 % (95.0-99.0); ABG PARTIAL PRESSURE CO2 32.3 mmHg (35.0-45.0); ABG PARTIAL PRESSURE O2 77.4 mmHg (75.0-100.0); ABG STANDARD HCO3 23.3 MEQ/L (22.0-26.0); ABG TOTAL CO2 22.7 MEQ/L (22.0-29.0); ABG pH (ARTERIAL) 7.445 UNITS (7.350-7.450)
[2018-05-25] MEDS ORDERED: CHARCOAL ACTIVATED LIQUID 25 GM/120 ML BTL PO ONE (11:15)
[2018-05-25] MEDS ORDERED: ASPI81TAEC PO (11:24)
[2018-05-25] MEDS ORDERED: VENTAER INH (11:24)
[2018-05-25] MEDS ORDERED: NITR4TASL SL (11:24)
[2018-05-25 11:41] LABS: ACETAMINOPHEN LEVEL < 2.0 UG/ML (10.0-30.0); ALT/SGPT 52 U/L (12-78); BILIRUBIN,DIRECT 0.2 MG/DL (0.0-0.2); BILIRUBIN,TOTAL 0.6 MG/DL (0.2-1.0); BLOOD UREA NITROGEN 16 MG/DL (7-18); CALCIUM LEVEL 8.9 MG/DL (8.5-10.1); CARBON DIOXIDE LEVEL 28 MEQ/L (21-32); CHLORIDE LEVEL 102 MEQ/L (98-107); CPK CREATINE PHOSPHOKINASE 855 U/L (39-308); CREATININE FOR GFR 1.09 MG/DL (0.70-1.30); ETHYL ALCOHOL (ETHANOL) < 0.003 % (0.000-0.010); GLOMERULAR FILTRATION RATE > 60.0 (>56); GLUCOSE, FASTING 124 MG/DL (70-100); SALICYLATE LEVEL < 1.7 MG/DL (5.0-30.0); SODIUM LEVEL 140 MEQ/L (136-145); TOTAL PROTEIN 6.8 GM/DL (6.4-8.2)
[2018-05-25 11:41] LABS: AMPHETAMINES LEVEL URINE NEGATIVE (NEGATIVE); BARBITURATES URINE NEGATIVE (NEGATIVE); BENZODIAZEPINES URINE NEGATIVE (NEGATIVE); CANNABINOIDS URINE NEGATIVE (NEGATIVE); COCAINE METABOLITE URINE POSITIVE (NEGATIVE); METHADONE URINE NEGATIVE (NEGATIVE); OPIATES URINE NEGATIVE (NEGATIVE); PHENCYCLIDINE URINE NEGATIVE (NEGATIVE)
--- NOTE | 2018-05-25 12:01 | REP ---
Duplex extremity venous ultrasound: Bilateral lower extremities. History: Calf pain. Question DVT. Findings: The deep veins are anechoic and fully compressible from the groin to the popliteal fossa in the left and right lower extremity. Color flow imaging is homogeneous. Spectral Doppler interrogation demonstrates intact respiratory variation in flow and normal manual augmentation of flow. There is no evidence of deep vein thrombosis. There is a 3.2 x 1.3 x 0.6 cm left-sided Teran's cyst. Impression: Small Teran's cyst on the left, otherwise negative bilateral lower extremity duplex venous ultrasound. No evidence of deep vein thrombosis. Electronically Signed by Magdi Morris MD 05/25/2018 11:53 A
[2018-05-25] MEDS ORDERED: ALBUTEROL 90 MCG/ACT 8GM HFA INHALER INH PRN (13:00)
[2018-05-25] MEDS: NS 1,000 ML IV SCH ×2 (13:00→23:18)
[2018-05-25 15:08] VITALS: BP 101/59
[2018-05-25 16:00] VITALS: BP 103/63
[2018-05-25 17:00] VITALS: BP 107/72
[2018-05-25 18:00] VITALS: BP 97/56
--- NOTE | 2018-05-25 18:30 | HPE ---
DATE OF ADMISSION: 05/25/2018 This is a 58-year-old male with a past medical history of depression, anxiety, history of hypertension, hyperlipidemia, presents to the emergency room after having an overdose of his prescription medications. According to the emergency medical services (EMS) charts, the patient took 24 10 mg tablets of his Ambien, 17 tablets of his lisinopril at 40 mg, his Ativan he took 18 tablets, and his duloxetine he took 17 tablets. In the emergency room (ER), he was given activated charcoal. Poison Control just recommended 12-hour observation, no other further recommendations. The patient is awake, alert, oriented times three, a bit lethargic. He does confirm suicidal ideation, and he did not explain but just gave a general statement that he just wants to let go of this life. He will be admitted for further management. PAST MEDICAL HISTORY: Anxiety. Depression. Hyperlipidemia. Hypertension. Gastroesophageal reflux disease (GERD). BPH. Diverticulosis. PAST SURGICAL HISTORY: Cholecystectomy. Right total knee replacement. ALLERGIES: He has drug allergies to CELECOXIB and OXYCODONE. FAMILY HISTORY: Noncontributory. SOCIAL HISTORY: The patient does say he smokes a pack a day for many years and does abuse cocaine, and does have roughly a 12 pack of beer three times a week. MEDICATIONS: He takes at home are as follows: - albuterol inhaler four times a day as needed - aspirin 81 mg orally daily - atorvastatin 20 mg orally at bedtime - carisoprodol 350 mg by mouth three times a day as needed - Plavix 75 mg orally daily - duloxetine 60 mg orally daily - gabapentin 800 mg orally three times a day - lisinopril 40 mg orally daily - metoprolol 25 mg orally daily - nitroglycerine 0.4 mg sublingual every 5 minutes as needed - pantoprazole 40 mg orally daily - Ambien 10 mg orally at bedtime REVIEW OF SYSTEMS: Negative all ten major systems except what is mentioned in the history of the present illness. Vital Signs: Blood pressure is 101/59, heart rate is 75, regular, respiratory rate 16, temperature 97.8, oxygen saturation 97% on room air. Head is atraumatic, normocephalic. Neck supple. No jugular venous distention (JVD). Lungs are clear to auscultation. S1, S2 audible, No murmurs appreciated. Abdomen: Soft, positive bowel sounds. No pedal edema. Skin: Intact. Neurologic Examination: Patient awake, alert, oriented times three. Pupils were equal and reactive to light and accommodation. LABORATORY: WBC is 7.3, hemoglobin 14.3, hematocrit 43, platelets are 270,000. Urine toxicology screen is positive for cocaine. Chemistries: Sodium 140, potassium 4.0, chloride 102, CO2 28, BUN 16, creatinine 1.09, glucose is 124, lactic acid 3.2, AST 44, ALT 52. IMPRESSION: 1. Overdose. 2. Suicidal ideation. PLAN: The patient is to be admitted to the intensive care unit (ICU) for observation. I am going to continue most of is preadmission medications except, of course, his sedative medications and the medications he abused. He does have a mild rhabdomyolysis, but there is a question of whether he also overdosed on atorvastatin, could be a myositis. Of course, we are going to give him intravenous (IV) fluids. He received one bolus in the ER and was started on maintenance of 100 mL an hour of normal saline (NS). Will follow the CK trends. Will continue following his care in the ICU.
--- NOTE | 2018-05-25 19:48 | ECGEPIP ---
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
[2018-05-25 20:00] VITALS: BP 117/75
[2018-05-26] VITALS: BP 113/67
[2018-05-26 04:00] VITALS: BP 115/61
[2018-05-26 05:10] LABS: BASO % 0.5 % (0.0-1.0); EOS # 0.2 10^3/uL (0.0-0.50); EOS % 3.3 % (0.0-3.0); HEMATOCRIT 41.1 % (42.0-52.0); HEMOGLOBIN 13.3 g/dl (13.5-17.5); LYMPH # 2.2 10^3/uL (1.5-4.5); LYMPH % 34.8 % (24.0-44.0); MEAN CORPUSCULAR HEMOGLOBIN 31.7 pg (27.0-33.0); MEAN CORPUSCULAR HGB CONC 32.4 g/dl (32.0-36.5); MEAN CORPUSCULAR VOLUME 98.1 fl (80.0-96.0); MONO # 0.6 10^3/uL (0.0-0.8); MONO % 9.9 % (0.0-5.0); NEUTROPHILS # 3.3 10^3/uL (1.8-7.7); PLATELET COUNT, AUTOMATED 241 10^3/uL (150-450); RED BLOOD COUNT 4.19 10^6/uL (4.30-6.10); WHITE BLOOD COUNT 6.4 10^3/uL (4.0-10.0)
[2018-05-26 05:36] LABS: ALBUMIN 3.1 GM/DL (3.2-5.2); ALT/SGPT 42 U/L (12-78); BILIRUBIN,TOTAL 0.3 MG/DL (0.2-1.0); BLOOD UREA NITROGEN 14 MG/DL (7-18); CALCIUM LEVEL 7.9 MG/DL (8.5-10.1); CARBON DIOXIDE LEVEL 27 MEQ/L (21-32); CHLORIDE LEVEL 109 MEQ/L (98-107); CREATININE FOR GFR 0.82 MG/DL (0.70-1.30); GLOMERULAR FILTRATION RATE > 60.0 (>56); GLUCOSE, FASTING 78 MG/DL (70-100); POTASSIUM SERUM 3.9 MEQ/L (3.5-5.1); SODIUM LEVEL 142 MEQ/L (136-145); TOTAL PROTEIN 5.8 GM/DL (6.4-8.2)
[2018-05-26 07:23] LABS: CPK CREATINE PHOSPHOKINASE 434 U/L (39-308)
[2018-05-26 08:06] VITALS: BP 141/87
--- NOTE | 2018-05-26 09:07 | IPNPDOC ---
Text Note Date of Service The patient was seen on 05/26/18. NOTE Subjective: Patient seen and examined at bedside. No acute overnight events reported. Patient has no new medical complaints today. He does endorse diarrhea. 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 #suicide attempt/overdose - continue to monitor on telemetry - follow up with poison control - anticipated medical cleared in 24 hours - psychiatry c/s #DVT prophylaxis VS,Fishbone, I+O VS, Fishbone, I+O Laboratory Tests 05/25/18 10:40 Red Blood Count 4.62, Mean Corpuscular Volume 93.1, Mean Corpuscular Hemoglobin 31.0, Mean Corpuscular Hemoglobin Concent 33.3, Red Cell Distribution Width 13.0, Neutrophils (%) (Auto) 63.2, Lymphocytes (%) (Auto) 24.2, Monocytes (%) (Auto) 9.6 H, Eosinophils (%) (Auto) 2.3, Basophils (%) (Auto) 0.3, Neutrophils # (Auto) 4.6, Lymphocytes # (Auto) 1.8, Monocytes # (Auto) 0.7, Eosinophils # (Auto) 0.2, Basophils # (Auto) 0.0 05/26/18 04:53 Red Blood Count 4.19 L, Mean Corpuscular Volume 98.1 H, Mean Corpuscular Hemoglobin 31.7, Mean Corpuscular Hemoglobin Concent 32.4, Red Cell Distribution Width 13.2, Neutrophils (%) (Auto) 51.0, Lymphocytes (%) (Auto) 34.8, Monocytes (%) (Auto) 9.9 H, Eosinophils (%) (Auto) 3.3 H, Basophils (%) (Auto) 0.5, Neutrophils # (Auto) 3.3, Lymphocytes # (Auto) 2.2, Monocytes # (Auto) 0.6, Eosinophils # (Auto) 0.2, Basophils # (Auto) 0.0, Calcium Level 7.9 L, Aspartate Amino Transf (AST/SGOT) 27, Alanine Aminotransferase (ALT/SGPT) 42, Total Creatine Kinase 434 H, Alkaline Phosphatase 58, Total Bilirubin 0.3, Total Protein 5.8 L, Albumin 3.1 #L Vital Signs Date Time Temp Pulse Resp B/P (MAP) Pulse Ox O2 Delivery O2 Flow Rate FiO2 05/26/18 04:00 97.2 78 14 115/61 (79) 96 05/25/18 14:31 Nasal Cannula 2.0 I&O- Last 24 Hours up to 6 AM 05/26/18 06:00 Intake Total 1740 ml Balance 1740 ml KATIA RYAN MD May 26, 2018 09:07
[2018-05-26] MEDS: NS 1,000 ML IV SCH ×2 (09:28→19:01)
[2018-05-26 12:39] VITALS: BP 133/72
[2018-05-26 16:27] VITALS: BP 123/74
[2018-05-26 20:00] VITALS: BP 119/70
[2018-05-27] VITALS: BP 123/74
[2018-05-27] MEDS: NS 1,000 ML IV SCH (03:19)
[2018-05-27] MEDS ORDERED: PANTOPRAZOLE 40MG TAB (PROTONIX) PO ONE (03:30)
[2018-05-27] MEDS: NICOTINE 14 MG/24 HR TRANSDERMAL TD SCH ×2 (03:32→03:59)
[2018-05-27 04:00] VITALS: BP 136/76
[2018-05-27 08:00] VITALS: BP 118/69
[2018-05-27 08:34] LABS: BASO % 0.3 % (0.0-1.0); EOS # 0.2 10^3/uL (0.0-0.50); EOS % 2.9 % (0.0-3.0); HEMATOCRIT 40.3 % (42.0-52.0); HEMOGLOBIN 13.1 g/dl (13.5-17.5); LYMPH % 34.1 % (24.0-44.0); MEAN CORPUSCULAR HGB CONC 32.5 g/dl (32.0-36.5); MEAN CORPUSCULAR VOLUME 98.3 fl (80.0-96.0); MONO # 0.6 10^3/uL (0.0-0.8); MONO % 9.7 % (0.0-5.0); NEUTROPHILS # 3.1 10^3/uL (1.8-7.7); NEUTROPHILS % 52.7 % (36.0-66.0); PLATELET COUNT, AUTOMATED 248 10^3/uL (150-450); WHITE BLOOD COUNT 5.8 10^3/uL (4.0-10.0)
[2018-05-27 08:47] LABS: ALT/SGPT 34 U/L (12-78); BILIRUBIN,TOTAL 0.2 MG/DL (0.2-1.0); BLOOD UREA NITROGEN 13 MG/DL (7-18); CALCIUM LEVEL 8.3 MG/DL (8.5-10.1); CARBON DIOXIDE LEVEL 28 MEQ/L (21-32); CHLORIDE LEVEL 110 MEQ/L (98-107); CREATININE FOR GFR 0.86 MG/DL (0.70-1.30); GLOMERULAR FILTRATION RATE > 60.0 (>56); GLUCOSE, FASTING 83 MG/DL (70-100); POTASSIUM SERUM 4.1 MEQ/L (3.5-5.1); SODIUM LEVEL 142 MEQ/L (136-145); TOTAL PROTEIN 5.8 GM/DL (6.4-8.2)
[2018-05-27] MEDS ORDERED: PANTOPRAZOLE 40MG TAB (PROTONIX) PO SCH (09:00)
--- NOTE | 2018-05-27 10:46 | MHCRPDOC ---
[facility] Consultation Consultation DATE OF CONSULTATION: 05/27/18 CONSULTATION REQUESTED BY: Dr. Hudson REASON FOR CONSULTATION: S/p OD as SA RELEVANT HISTORY: Per med admission note: "This is a 58-year-old male with a past medical history of depression, anxiety, history of hypertension, hyperlipidemia, presented to the emergency room after having an overdose of his prescription medications. According to the emergency medical services (EMS) charts, the patient took 24 10 mg tablets of his Ambien, 17 tablets of his lisinopril at 40 mg, his Ativan he took 18 tablets, and his duloxetine he took 17 tablets. In the emergency room (ER), he was given activated charcoal. Poison Control just recommended 12-hour observation, no ot her further recommendations. The patient is awake, alert, oriented times three, a bit lethargic. He does confirm suicidal ideation, and he did not explain but just gave a general statement that he just wants to let go of this life. He will be admitted for further management." Pt consulted for evaluation for SI s/p OD as SA and seen today and continues to endorse SI although denies intent/plan and feels safe in the hospital. States "things just haven't been going well in my life lately." Continues to use cocaine and alcohol to self medicate his mood but states that's just making things worse for him. Pt states he was recently at [facility] for inpatient substance abuse treatment but only for 10days as he left early not feeling it was helpful "due to some of the people they had there.' Agreeable to admission to [facility] for further psych treatment. PAST PSYCHIATRIC HISTORY: Depression, Anxiety, Alcohol and Cocaine use d/o Multiple admissions to [facility], last admitted to [facility] 05/15/17 for depression, substance abuse, and SI Outpatient Provided Joss, at [facility]. History of SA by OD in the past PAST MEDICAL HISTORY: Hyperlipidemia. Hypertension. Gastroesophageal reflux disease (GERD). BPH. Diverticulosis. FAMILY HISTORY: His sister has depression. Two daughters have bipolar disorder and have been hospitalized. One of his daughters was discharged yesterday from [facility]. Two daughters have a drug problem. One daughter has an alcohol problem. There is no history of completed suicides in the family. His daughter in [facility] is in penitentiary for selling drugs. She is the youngest at 25. His son is in penitentiary for killing two people while intoxicated and driving. PERSONAL AND SOCIAL HISTORY: The patient was born and raised in [place] in a two parent home. His parents are now . He is the youngest of seven siblings and has four brothers and two sisters. His mother worked cleaning houses. His father worked for the primary counselor setting up baseball negrete. For the last 12 years of father's life, he was park superintendent for [employer]. The patient states that childhood was good. He was well provided for. He quit school in tenth grade because he wanted to work. He got his GED in penitentiary recently. 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 He sustained an injury at work and gets Social Security Disability for that. He after 24 years of marriage and has adult children as stated above. He denies history of abuse. SUBSTANCE ABUSE HISTORY: Smokinppd ETOH: drinks Illicit Drugs: u tox positive for cocaine, has used opiates and cannabis in the past LEGAL HISTORY: The patient is not in any trouble at this time. No legal issues. No parole. The last time he was in trouble was in 2008 when he went to penitentiary for selling drugs. MENTAL STATUS EXAMINATION: Patient is a 58-year old male, who is in hospital gown sitting on hospital bed cooperative yet withdrawn Speech is reg rate/rhythm/volume, non-spontaneous Language skills are fair Thought processes including: linear, logical Thought content: depressive thoughts with SI no current plan/intent Abstract reasoning, and computation: intact Description of associations: appropriate Description of abnormal or psychotic thoughts: denies hallucinations, delusions Judgment: poor Insight: poor Orientation to x3 Recent and remote memory: intact Attention span and concentration: fair Language: appropriate Fund of knowledge: average Mood: "depressed" Affect: congruent, constricted, flat DIAGNOSIS: 1. Unspecified mood disorder 2. Cocaine and Alcohol use disorder 3. Cluster B personality traits PLAN: 1. admit to [facility] once medically cleared and off contact isolation Vital Signs Vital Signs Date Time Temp Pulse Resp B/P (MAP) Pulse Ox O2 Delivery O2 Flow Rate FiO2 05/27/18 04:00 97.5 55 18 136/76 (96) 100 05/25/18 14:31 Nasal Cannula 2.0 Laboratory Data 24H Labs Laboratory Tests 2 05/27/18 08:11: Immature Granulocyte % (Auto) 0.3, White Blood Count 5.8, Red Blood Count 4.10L, Hemoglobin 13.1L, Hematocrit 40.3L, Mean Corpuscular Volume 98.3H, Mean Corpuscular Hemoglobin 32.0, Mean Corpuscular Hemoglobin Concent 32.5, Red Cell Distribution Width 13.0, Platelet Count 248, Neutrophils (%) (Auto) 52.7, Lymphocytes (%) (Auto) 34.1, Monocytes (%) (Auto) 9.7H, Eosinophils (%) (Auto) 2.9, Basophils (%) (Auto) 0.3, Neutrophils # (Auto) 3.1, Lymphocytes # (Auto) 2.0, Monocytes # (Auto) 0.6, Eosinophils # (Auto) 0.2, Basophils # (Auto) 0.0, Nucleated Red Blood Cells % (auto) 0.0, Anion Gap 4L, Glomerular Filtration Rate > 60.0, Blood Urea Nitrogen 13, Creatinine 0.86, Sodium Level 142, Potassium Level 4.1, Chloride Level 110H, Carbon Dioxide Level 28, Calcium Level 8.3L, Aspartate Amino Transf (AST/SGOT) 18, Alanine Aminotransferase (ALT/SGPT) 34, Alkaline Phosphatase 55, Total Bilirubin 0.2, Total Protein 5.8L, Albumin 3.0L, Albumin/Globulin Ratio 1.07 Home Medications Current Medications Current Medications Albuterol Sulfate (Proventil, Ventolin Hfa) 2 puff QID PRN INH SHORTNESS OF BREATH; Start 05/25/18 at 13:00 Home Med (Med Rec Complete!) ASDIRECTED XX ; Start 05/25/18 at 11:30; Stop 05/25/18 at 11:30; Status DC Nicotine (Nicoderm Cq 14mg) 1 patch DAILY TD Last administered on 05/27/18at 03:32; Start 05/27/18 at 03:30 Pantoprazole Sodium (Protonix) 40 mg DAILY PO ; Start 05/27/18 at 09:00 Sodium Chloride 1,000 ml @ 100 mls/hr Q10H IV Last administered on 05/27/18at 03:19; Start 05/25/18 at 13:00; Stop 05/27/18 at 07:57; Status DC Scheduled Aspirin (Aspirin EC) 81 Mg Tabec, 81 MG PO DAILY, (Reported) Atorvastatin Calcium (Atorvastatin Calcium) 20 Mg Tab, 20 MG PO QHS, (Reported) Clopidogrel Bisulfate (Clopidogrel) 75 Mg Tab, 75 MG PO DAILY, (Reported) Duloxetine Hcl (Duloxetine HCl) 60 Mg Cap, 60 MG PO DAILY, (Reported) Gabapentin (Gabapentin) 800 Mg Tab, 800 MG PO TID, (Reported) Lisinopril (Lisinopril) 40 Mg Tab, 40 MG PO DAILY, (Reported) Metoprolol Succinate (Metoprolol Succinate ER) 25 Mg Tab, 25 MG PO DAILY, (Reported) Pantoprazole Sodium (Pantoprazole Sodium) 40 Mg Tab, 40 MG PO DAILY, (Reported) Zolpidem Tartrate (Zolpidem Tartrate) 10 Mg Tab, 10 MG PO QHS, (Reported) Scheduled PRN Albuterol Sulfate (Ventolin Hfa) 108 Mcg/Act Aer, 2 PUFF INH QID PRN for SHORTNESS OF BREATH, (Reported) Carisoprodol (Carisoprodol) 350 Mg Tab, 350 MG PO TID PRN for MUSCLE SPASMS, (Reported) Nitroglycerin (Nitrostat) 0.4 Mg Subl, 0.4 MG SL Q5MP PRN for CHEST PAIN, (Reported) Allergies Coded Allergies: Celecoxib (Verified Adverse Reaction, Mild, N/V, 08/26/17) LISA SEGURA DO May 27, 2018 10:04 am
[2018-05-27 12:00] VITALS: BP 143/75
--- NOTE | 2018-05-27 12:33 | DS.PDOC ---
Discharge Summary General Date of Admission May 25, 2018 at 12:57 Date of Discharge 05/27/18 Discharge Summary PROCEDURES PERFORMED DURING STAY: [None]. ADMITTING DIAGNOSES: 1. drug overdose 2. suicide attempt DISCHARGE DIAGNOSES: 1. suicide attempt/ideation COMPLICATIONS/CHIEF COMPLAINT: Alcohol And Cocaine Abuse With Intoxication. HISTORY OF PRESENT ILLNESS: This is a 58-year-old male with a past medical history of depression, anxiety, history of hypertension, hyperlipidemia, presented to the emergency room after having an overdose of his prescription medications. According to the emergency medical services (EMS) charts, the patient took 24 10 mg tablets of his Ambien, 17 tablets of his lisinopril at 40 mg, his Ativan he took 18 tablets, and his duloxetine he took 17 tablets. In the emergency room (ER), he was given activated charcoal. Poison Control just recommended 12-hour observation, no other further recommendations. The patient was awake, alert, oriented times three, a bit lethargic. He did confirm suicidal ideation, and he did not explain but just gave a general statement that he just wants to end his life. HOSPITAL COURSE: . DISCHARGE MEDICATIONS: Please see below. ALLERGIES: Please see below. PHYSICAL EXAMINATION ON DISCHARGE: VITAL SIGNS: Please see below. GENERAL: NAD, somewhat disheveled HEENT: NC/AT, EOMI, PERRL NECK: supple CARDIOVASCULAR EXAMINATION: +S1S2, RRR RESPIRATORY EXAMINATION: CTA B/L ABDOMINAL EXAMINATION: soft, NT, +BS EXTREMITIES: no edema SKIN: no rashes NEUROLOGICAL EXAMINATION: no gross focal deficits PSYCHIATRIC EXAMINATION: AAOx3 LABORATORY DATA: Please see below. ACTIVITY: [As tolerated]. DISCHARGE PLAN: Medically clear for discharge to [facility] DISPOSITION: Discharge to [facility] DISCHARGE INSTRUCTIONS: 1. Further instruction as per [facility] ITEMS TO FOLLOWUP ON ON OUTPATIENT: 1. Recommend PCP follow up in 3-5 after discharge from [facility]. DISCHARGE CONDITION: [Stable]. TIME SPENT ON DISCHARGE: Greater than 30 minutes. Vital Signs/I&Os Vital Signs Date Time Temp Pulse Resp B/P (MAP) Pulse Ox O2 Delivery O2 Flow Rate FiO2 05/27/18 08:00 98.2 58 16 118/69 (85) 99 05/25/18 14:31 Nasal Cannula 2.0 I&O- Last 24 Hours up to 6 AM 05/27/18 05:59 Intake Total 4940 ml Balance 4940 ml Laboratory Data Labs 24H Laboratory Tests 2 05/27/18 08:11: Immature Granulocyte % (Auto) 0.3, White Blood Count 5.8, Red Blood Count 4.10L, Hemoglobin 13.1L, Hematocrit 40.3L, Mean Corpuscular Volume 98.3H, Mean Corpuscular Hemoglobin 32.0, Mean Corpuscular Hemoglobin Concent 32.5, Red Cell Distribution Width 13.0, Platelet Count 248, Neutrophils (%) (Auto) 52.7, Lymphocytes (%) (Auto) 34.1, Monocytes (%) (Auto) 9.7H, Eosinophils (%) (Auto) 2.9, Basophils (%) (Auto) 0.3, Neutrophils # (Auto) 3.1, Lymphocytes # (Auto) 2.0, Monocytes # (Auto) 0.6, Eosinophils # (Auto) 0.2, Basophils # (Auto) 0.0, Nucleated Red Blood Cells % (auto) 0.0, Anion Gap 4L, Glomerular Filtration Rate > 60.0, Blood Urea Nitrogen 13, Creatinine 0.86, Sodium Level 142, Potassium Level 4.1, Chloride Level 110H, Carbon Dioxide Level 28, Calcium Level 8.3L, Aspartate Amino Transf (AST/SGOT) 18, Alanine Aminotransferase (ALT/SGPT) 34, Alkaline Phosphatase 55, Total Bilirubin 0.2, Total Protein 5.8L, Albumin 3.0L, Albumin/Globulin Ratio 1.07 CBC/BMP Laboratory Tests 05/27/18 08:11 Red Blood Count 4.10 L, Mean Corpuscular Volume 98.3 H, Mean Corpuscular Hemoglobin 32.0, Mean Corpuscular Hemoglobin Concent 32.5, Red Cell Distribution Width 13.0, Neutrophils (%) (Auto) 52.7, Lymphocytes (%) (Auto) 34.1, Monocytes (%) (Auto) 9.7 H, Eosinophils (%) (Auto) 2.9, Basophils (%) (Auto) 0.3, Neutrophils # (Auto) 3.1, Lymphocytes # (Auto) 2.0, Monocytes # (Auto) 0.6, Eosinophils # (Auto) 0.2, Basophils # (Auto) 0.0, Calcium Level 8.3 L, Aspartate Amino Transf (AST/SGOT) 18, Alanine Aminotransferase (ALT/SGPT) 34, Alkaline Phosphatase 55, Total Bilirubin 0.2, Total Protein 5.8 L, Albumin 3.0 L Microbiology Microbiology 05/26/18 MRSA Screen, Received Pending 05/25/18 Urine Culture - Final, Complete Discharge Medications Scheduled Aspirin (Aspirin EC) 81 Mg Tabec, 81 MG PO DAILY, (Reported) Atorvastatin Calcium (Atorvastatin Calcium) 20 Mg Tab, 20 MG PO QHS, (Reported) Clopidogrel Bisulfate (Clopidogrel) 75 Mg Tab, 75 MG PO DAILY, (Reported) Duloxetine Hcl (Duloxetine HCl) 60 Mg Cap, 60 MG PO DAILY, (Reported) Gabapentin (Gabapentin) 800 Mg Tab, 800 MG PO TID, (Reported) Lisinopril (Lisinopril) 40 Mg Tab, 40 MG PO DAILY, (Reported) Metoprolol Succinate (Metoprolol Succinate ER) 25 Mg Tab, 25 MG PO DAILY, (Reported) Pantoprazole Sodium (Pantoprazole Sodium) 40 Mg Tab, 40 MG PO DAILY, (Reported) Zolpidem Tartrate (Zolpidem Tartrate) 10 Mg Tab, 10 MG PO QHS, (Reported) Scheduled PRN Albuterol Sulfate (Ventolin Hfa) 108 Mcg/Act Aer, 2 PUFF INH QID PRN for SHORTNESS OF BREATH, (Reported) Carisoprodol (Carisoprodol) 350 Mg Tab, 350 MG PO TID PRN for MUSCLE SPASMS, (Reported) Nitroglycerin (Nitrostat) 0.4 Mg Subl, 0.4 MG SL Q5MP PRN for CHEST PAIN, (Reported) Allergies Coded Allergies: Celecoxib (Verified Adverse Reaction, Mild, N/V, 08/26/17) KATIA RYAN MD May 27, 2018 12:33
[2018-05-27] MEDS ORDERED: NICO14PA TD (12:35)
== END 2018-05-27 14:45 | DRG 812 ==
LOC: M ED 10:22 → M ED INP 12:57 → M ICU 15:00
PROVIDERS: ADMIT Internal Medicine; ATTEND Internal Medicine
DX: T42.6X2A Poisoning by other antiepileptic and sedative-hypnotic drugs, intentional self-harm, initial encounter (principal); M62.82 Rhabdomyolysis; R45.851 Suicidal ideations; T46.4X2A Poisoning by angiotensin-converting-enzyme inhibitors, intentional self-harm, initial encounter; T42.4X2A Poisoning by benzodiazepines, intentional self-harm, initial encounter; F41.8 Other specified anxiety disorders; I10 Essential (primary) hypertension; E78.5 Hyperlipidemia, unspecified; Z79.82 Long term (current) use of aspirin; Z79.899 Other long term (current) drug therapy; Z88.8 Allergy status to other drugs, medicaments and biological substances; F32.9 Major depressive disorder, single episode, unspecified; K21.9 Gastro-esophageal reflux disease without esophagitis; N40.0 Benign prostatic hyperplasia without lower urinary tract symptoms; K57.30 Diverticulosis of large intestine without perforation or abscess without bleeding; Z96.651 Presence of right artificial knee joint; Z88.5 Allergy status to narcotic agent; F17.200 Nicotine dependence, unspecified, uncomplicated; F10.10 Alcohol abuse, uncomplicated; F14.90 Cocaine use, unspecified, uncomplicated; F60.89 Other specific personality disorders

== ENCOUNTER 2018-05-27 13:44 | Inpatient (IN) | payer MEDICAID, OTHER ==
[~2018-05-27 13:44] MED LIST changes: +ASPI81TAEC PO; +NICO14PA TD; +NICOTINE 21MG/24HR 1 EA TRANSDERMAL TD SCH; +NITR4TASL SL
[2018-05-27] MEDS ORDERED: MOM 30ML SUSPENSION UDC PO PRN (14:15)
[2018-05-27] MEDS ORDERED: MAALOX 30 ML SUSP *UDC PO PRN (14:15)
[2018-05-27 15:07] VITALS: BP 131/71
[2018-05-27] MEDS: ACETAMINOPHEN TAB 650MG DOSE (2X325MG) PO PRN (20:25)
[2018-05-27] MEDS: traZODone 50 MG TAB PO PRN (21:30)
[2018-05-28 06:25] VITALS: BP 133/88
[2018-05-28] MEDS: ACETAMINOPHEN TAB 650MG DOSE (2X325MG) PO PRN (08:11)
[2018-05-28] MEDS: NICOTINE 21MG/24HR 1 EA TRANSDERMAL TD SCH (08:12)
[2018-05-28] MEDS ORDERED: ALBUTEROL 90 MCG/ACT 8GM HFA INHALER INH PRN (09:15)
[2018-05-28] MEDS: CLOPIDOGREL 75 MG TAB PO SCH (09:45)
[2018-05-28] MEDS: PANTOPRAZOLE 40MG TAB (PROTONIX) PO SCH (09:45)
[2018-05-28] MEDS: guaiFENesin ER 600 MG TAB PO SCH ×2 (09:45→20:54)
[2018-05-28] MEDS: ATORVASTATIN 20 MG TAB PO SCH (09:45)
[2018-05-28] MEDS: ASPIRIN 81 MG ENTERIC TAB PO SCH (09:45)
--- NOTE | 2018-05-28 11:20 | REP ---
Chest x-ray: Two views. History: Cough. Comparison chest x-ray: May 25, 2018. Findings: The lungs are somewhat hyperinflated but free of infiltrate. Pleural angles are sharp. Heart is not enlarged. Pulmonary vasculature is not increased. No significant bony abnormality. Impression: No active disease. Mild hyperinflation. Electronically Signed by Magdi Morris MD 05/28/2018 11:11 A
--- NOTE | 2018-05-28 11:24 | HPEPDOC ---
[facility] Medical History & Physical Date of Admission May 27, 2018 History and Physical PCP: [facility] ATTENDING: Dr.Nazeel Morales HPI: 58 yo M admitted to [facility] from 05/25/18-05/27/18 following an intentional overdose of 24 10 mg tablets of Ambien, 17 tablets of lisinopril, duloxetine 17 tablets, and 18 tablets of Ativan, the patient was medically stabilized, poison control was consulted and the patient was deemed stable for transfer to [facility] for depressive disorder. The patient states he has had some nonproductive cough. He denies fevers or chil ls. Denies sore throat, rhinorrhea, ear pain, dyspnea, shortness of breath. Denies any fevers, chills, weakness, fatigue, BARLOW, CP, palpitations, abdominal pain, N/V/D or changes in bowel or bladder habits. Patient reports he takes gabapentin for anxiety. PMHx: Anxiety Depression History of SI/SA, overdose Hypertension Dyslipidemia CAD/Cardiac stent 10/06. Follows with Dr. Hilton. Insomnia Asthma PSHX: Cholecystectomy Right total knee replacement SOCHX: Resides in: [facility] Kids: 2 Tobacco use: One pack per day ETOH: 12 pack of beer 3 times per week Illicit Drugs: History of cocaine IV Drug Use: Denies Tattoos done unprofessionally: Denies FAMHX: Children: 2 Alive, well ROS: As noted in HPI, otherwise 11pt ROS of systems reviewed and unremarkable. PE: GEN: 58 yo M, appears stated age. Well-nourished, well developed. No acute distress. Alert and oriented x 3. Pleasant, interactive. HEENT: Normocephalic, atraumatic. Pupils are equal, round, and reactive to light. Extraocular movements are intact. No nystagmus appreciated. Sclera are nonicteric. Conjunctiva without injection. Nose midline. Nasal turbinates without bogginess. EACs both patent BL. TMs both visualized and hamilton with good cone of light, no bulging or erythema. No facial asymmetry. Moist mucous membranes. Dentition poor. Pharynx pink and moist, no cobblestoning. Neck supple, trachea midline. No lymphadenopathy or thyromegaly appreciated. CHEST: Regular rate and rhythm, +S1, +S2 LUNGS: Clear to auscultation bilaterally. No wheezes, rales, or rhonchi. Breathing appears symmetric and easy. Patient is speaking in full sentences. No accessory muscle use. ABD: Round, soft, non-tender, non-distended. +Bowel sounds throughout. No rebound or guarding. No costovertebral angle tenderness. EXT: Pulses 2+ bilaterally dorsalis pedis and radial. No lower extremity edema appreciated. SKIN: [place], dry, warm. Capillary refill <2sec. No rashes. NEURO: Alert and oriented x 3. Cranial nerves III-XII are intact. No focal deficits appreciated. EKG: SINUS RHYTHM LEFTWARD AXIS NONSPECIFIC ST T WAVE CHANGES CW 05/02/[address] T WAVE CHANGES Electronically Signed On 05-25-2018 19:48:13 EST by Jabari Tomas A&P: 58 yo M admitted to [facility] from 05/25/18-05/27/18 following an intentional overdose of 24 10 mg tablets of Ambien, 17 tablets of lisinopril, duloxetine 17 tablets, and 18 tablets of Ativan, the patient was medically stabilized, poison control was consulted and the patient was deemed stable for transfer to [facility] for depressive disorder. 1. Psych. Plan per Psychiatry. EKG on file. 2. Nicotine dependence. Patch available. 3. CAD/history of cardiac stent. Patient denies any chest discomfort symptoms. Continue aspirin 81 mg daily. Continue Plavix 75 mg daily. Continue metoprolol 25 mg by mouth daily with hold parameters.. Continue outpatient follow-up with cardiology, Dr. Hilton. 4. Follow up with PCP on discharge. 5. Substance use. Management per psychiatry. 6. Dyslipidemia. Continue atorvastatin 20 mg by mouth daily. 7. GERD. Continue Protonix 40 mg by mouth daily. 8. Asthma. Continue albuterol HFA 2 puffs every 4 hours as needed. 9. Cough. Patient is afebrile. No leukocytosis. Check chest x-ray. Mucinex 600 mg twice a day as needed. Monitor. 10. HTN. Lisinopril on hold at this time. Monitor BP and add back if needed. 11. Staff member Derrick present throughout exam. Vital Signs Vital Signs Date Time Temp Pulse Resp B/P (MAP) Pulse Ox O2 Delivery O2 Flow Rate FiO2 05/28/18 06:25 97.7 62 14 133/88 (103) Home Medications Scheduled Aspirin (Aspirin EC) 81 Mg Tabec, 81 MG PO DAILY Atorvastatin Calcium (Atorvastatin Calcium) 20 Mg Tab, 20 MG PO QHS Clopidogrel Bisulfate (Clopidogrel) 75 Mg Tab, 75 MG PO DAILY Gabapentin (Gabapentin) 800 Mg Tab, 800 MG PO TID Nicotine (Nicotine Transdermal Syst) 14 Mg/24 Hr Dis, 1 PATCH TD DAILY Pantoprazole Sodium (Pantoprazole Sodium) 40 Mg Tab, 40 MG PO DAILY Scheduled PRN Albuterol Sulfate (Ventolin Hfa) 108 Mcg/Act Aer, 2 PUFF INH QID PRN for SHORTNESS OF BREATH Allergies Coded Allergies: Celecoxib (Verified Adverse Reaction, Mild, N/V, 08/26/17) Jennifer Pantoja May 28, 2018 11:24
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
[2018-05-28] MEDS: METOPROLOL SUCC *XL* 25MG TAB (TopROL *XL*) PO SCH (12:33)
[2018-05-28] MEDS: SERTRALINE HCL 50 MG TAB PO SCH (12:33)
[2018-05-28] MEDS: GABAPENTIN 400 MG CAP PO SCH ×2 (16:59→20:54)
[2018-05-28 18:00] VITALS: BP 139/89
[2018-05-28] MEDS: traZODone 50 MG TAB PO PRN (20:54)
[2018-05-28] MEDS ORDERED: traZODone 50 MG TAB PO ONE (23:15)
[2018-05-29] MEDS: ACETAMINOPHEN TAB 650MG DOSE (2X325MG) PO PRN (03:44)
[2018-05-29 06:31] VITALS: BP 137/85
[2018-05-29] MEDS: CLOPIDOGREL 75 MG TAB PO SCH (08:19)
[2018-05-29] MEDS: ASPIRIN 81 MG ENTERIC TAB PO SCH (08:19)
[2018-05-29] MEDS: SERTRALINE HCL 50 MG TAB PO SCH (08:19)
[2018-05-29] MEDS: ATORVASTATIN 20 MG TAB PO SCH (08:19)
[2018-05-29] MEDS: GABAPENTIN 400 MG CAP PO SCH ×2 (08:19→14:50)
[2018-05-29] MEDS: PANTOPRAZOLE 40MG TAB (PROTONIX) PO SCH (08:19)
[2018-05-29] MEDS: NICOTINE 21MG/24HR 1 EA TRANSDERMAL TD SCH (08:19)
[2018-05-29] MEDS: guaiFENesin ER 600 MG TAB PO SCH (08:19)
[2018-05-29 08:20] VITALS: BP 122/73
[2018-05-29] MEDS: METOPROLOL SUCC *XL* 25MG TAB (TopROL *XL*) PO SCH (08:20)
[2018-05-29] MEDS ORDERED: NICO14PA TD (12:18)
[2018-05-29] MEDS ORDERED: MUCI600T37 PO (12:18)
[2018-05-29] MEDS ORDERED: GABA800T4 PO (12:18)
[2018-05-29] MEDS ORDERED: ATOR1TAB21 PO (12:18)
[2018-05-29] MEDS ORDERED: PANT40TA3 PO (12:18)
[2018-05-29] MEDS ORDERED: ASPI81TAEC PO (12:18)
[2018-05-29] MEDS ORDERED: NICO21PAT TD (12:18)
[2018-05-29] MEDS ORDERED: TRAZO50TA PO (12:18)
[2018-05-29] MEDS ORDERED: CLOP75TA2 PO (12:18)
[2018-05-29] MEDS ORDERED: VENTAER INH (12:18)
[2018-05-29] MEDS ORDERED: SERT50TA PO (12:18)
--- NOTE | 2018-06-07 19:37 | MHDSPDOC ---
[facility] Discharge Summary Discharge Summary DATE OF ADMISSION: May 27, 2018 at 14:50 DATE OF DISCHARGE: May 29, 2018 at 15:20 DISCHARGE DIAGNOSES: 1. Major depressive disorder 2. Polysubstance use disorder 3. Cluster B personality traits REASON FOR ADMISSION: the patient was transferred from the medical floor where he was admitted for an intentional overdose because he is feeling depressed, he feels like a failure because he relapsed on alcohol and cocaine 3 months ago. he says he relapsed becuase three of his friends of an overdose, he went to the funerals and met with other people that were his friends too and they use substances too. After the he started drinking. He feels it had something to do, to mingle with the wrong people. As per his most recent medical record: "This is a 58-year-old male with a past medical history of depression, anxiety, history of hypertension, hyperlipidemia, presents to the emergency room after having an overdose of his prescription medications. According to the emergency medical services (EMS) charts, the patient took 24 10 mg tablets of his Ambien, 17 tablets of his lisinopril at 40 mg, his Ativan he took 18 tablets, and his duloxetine he took 17 tablets. In the emergency room (ER), he was given activated charcoal. Poison Control just recommended 12-hour observation, no other further recommendations. The patient is awake, alert, oriented times three, a bit lethargic. He does confirm suicidal ideation, and he did not explain but just gave a general statement that he just wants to let go of this life. He will be admitted for further management CONSULTANTS INVOLVED: None TREATMENT AND PROGRESS ON THE UNIT : Upon admission the patient had reported feeling depressed but not exactly suicidal , however he tried to kill himself by overdosing. He explained that he has felt angry at himself because he had relaps ed. He mentioned that not too long ago he went to different funerals from different friends and while he was in there he met people that he had befriended in his past and with whom he used to drink and do drugs. He said that the the temptation was too much for him to handle and he had relapsed and because he relapsed he felt suicidal but he thinks it had a lot to do with the fact that he has been drinking. He was compliant with medications and he didn't develop adverse effects to them. He requested to be discharged saying that he was going to be okay, that he has support from family and friends, especially from his daughter and he contracted for safety. HOSPITAL COURSE: As above DISCHARGE ASSESSMENT: The patient was not homicidal, not suicidal and not psyc hotic at the time of his discharge MENTAL STATUS EXAMINATION: General appearance: Patient is a superficially cooperative, well nourished, dressed in hospital clothes, in no distress, with good eye contact, fair hygiene and grooming Speech: Clear, normal in rate, tone and volume.Spontaneous and fluent Thought processes: Intact Thought content: Goal orientated, he wants to go to rehabilitation. Abstract reasoning and computation: Fair Description of associations: good Description of abnormal or psychotic thoughts: Denies A/V hallucinations. Denies SI, denies HI, denies thought delusions Judgment: Improving Insight: fair Orientation: x 3 Recent and remote memory: Intact Attention span and concentration: Fair Fund of knowledge: Average Mood: "I'm okay , I'm ready to go home " Affect: Full, reactive, appropriate congruent with mood DIAGNOSES: 1. Major depressive disorder 2. Polysubstance use disorder 3. Cluster B personality traits MEDICATIONS ON DISCHARGE: Scheduled Aspirin (Aspirin EC) 81 Mg Tabec, 81 MG PO DAILY for HEART , #7 Atorvastatin Calcium (Atorvastatin Calcium) 20 Mg Tab, 20 MG PO QHS for HYPERCHOLESTEROLEMIA, #7 Clopidogrel Bisulfate (Clopidogrel) 75 Mg Tab, 75 MG PO DAILY for BLOOD THINNER, #7 Gabapentin (Gabapentin) 800 Mg Tab, 800 MG PO TID for PAIN/ANXIETY, #21 Guaifenesin (Mucinex) 600 Mg Tab, 600 MG PO BID for cough, #14 Nicotine (Nicotine Transdermal Syst) 14 Mg/24 Hr Dis, 1 PATCH TD DAILY for NICOTINE WITHDRAWALS for 7 Days, #7 Nicotine (Nicotine Transdermal Syst) 21 Mg/24 Hr Dis, 1 PATCH TD DAILY for nicotine withwrals, #7 Pantoprazole Sodium (Pantoprazole Sodium) 40 Mg Tab, 40 MG PO DAILY for GERD, #7 Sertraline Hcl (Sertraline HCl) 50 Mg Tab, 50 MG PO QAM for depression, #7 Scheduled PRN Albuterol Sulfate (Ventolin Hfa) 108 Mcg/Act Aer, 2 PUFF INH QID PRN for SHORTNESS OF BREATH, #1 Trazodone HCl (Trazodone HCl) 50 Mg Tab, 50 MG PO QHSP PRN for INSOMNIA, #7 PLAN/FOLLOWUP ARRANGEMENTS: Follow Up Care Education Label * Mental Health Appt 1 * [facility] * Established With This Provider No * Therapist NALINI * Date Jun 05, 2018 * Time 13:00 * Address of Clinic or Practice [address] [place] [address] * Follow Up Care Education Label * Mental Health Appt 2 * [facility] * Established With This Provider No * Therapist SANTHOSH * Date Jun 22, 2018 * Time 10:30 * Address of Clinic or Practice [address] [place] [address] * Follow Up Care Education Label * Medical * Medical Follow Up [facility] * Established With This Provider Yes * Therapist SANTIAGO INFANTE * Date Jun 11, 2018 * Time 10:00 * Address of Clinic or Practice [address] [place] [address] * The amount of time spent in the coordination of care for this patient was approximately 30 minutes. Medications Scheduled Aspirin (Aspirin EC) 81 Mg Tabec, 81 MG PO DAILY for HEART , #7 Atorvastatin Calcium (Atorvastatin Calcium) 20 Mg Tab, 20 MG PO QHS for HYPERCHOLESTEROLEMIA, #7 Clopidogrel Bisulfate (Clopidogrel) 75 Mg Tab, 75 MG PO DAILY for BLOOD THINNER, #7 Gabapentin (Gabapentin) 800 Mg Tab, 800 MG PO TID for PAIN/ANXIETY, #21 Guaifenesin (Mucinex) 600 Mg Tab, 600 MG PO BID for cough, #14 Nicotine (Nicotine Transdermal Syst) 14 Mg/24 Hr Dis, 1 PATCH TD DAILY for NICOTINE WITHDRAWALS for 7 Days, #7 Nicotine (Nicotine Transdermal Syst) 21 Mg/24 Hr Dis, 1 PATCH TD DAILY for nicotine withwrals, #7 Pantoprazole Sodium (Pantoprazole Sodium) 40 Mg Tab, 40 MG PO DAILY for GERD, #7 Sertraline Hcl (Sertraline HCl) 50 Mg Tab, 50 MG PO QAM for depression, #7 Scheduled PRN Albuterol Sulfate (Ventolin Hfa) 108 Mcg/Act Aer, 2 PUFF INH QID PRN for SHORTNESS OF BREATH, #1 Trazodone HCl (Trazodone HCl) 50 Mg Tab, 50 MG PO QHSP PRN for INSOMNIA, #7 Allergies Coded Allergies: Celecoxib (Verified Adverse Reaction, Mild, N/V, 08/26/17) MYRON FUCHS MD Jun 07, 2018 19:21
== END 2018-05-29 15:20 | disposition hospice, home (50) | DRG 754 ==
LOC: M PSY 14:50 → EEVIPCON 14:50
PROVIDERS: ADMIT Psychiatry & Neurology Psychiatry; ATTEND Psychiatry & Neurology Psychiatry
DX: F32.9 Major depressive disorder, single episode, unspecified (principal); I10 Essential (primary) hypertension; R45.851 Suicidal ideations; F60.89 Other specific personality disorders; F41.9 Anxiety disorder, unspecified; E78.5 Hyperlipidemia, unspecified; Z79.82 Long term (current) use of aspirin; Z79.899 Other long term (current) drug therapy; Z88.8 Allergy status to other drugs, medicaments and biological substances; I25.10 Atherosclerotic heart disease of native coronary artery without angina pectoris; Z95.2 Presence of prosthetic heart valve; G47.00 Insomnia, unspecified; J45.909 Unspecified asthma, uncomplicated; Z96.651 Presence of right artificial knee joint; F17.200 Nicotine dependence, unspecified, uncomplicated; F10.10 Alcohol abuse, uncomplicated

== ENCOUNTER 2018-08-23 21:55 | Emergency (ER) | payer MEDICAID, OTHER ==
[~2018-08-23] VITALS: Ht 180.3 cm; Wt 113.6 kg
[~2018-08-23 21:55] MED LIST changes: -/ESOM40CA; -/TAMS4CA; +ASPI-164 PO; -DULO30CA PO; +DULO30CA9 PO; +FLOM0.4C39; +MUCI600T37 PO; +MUPI1OIN2 TOP; -MUPI2OI TOP; +NEXI1CAP3; -NICOTINE 21MG/24HR 1 EA TRANSDERMAL TD SCH; +SERT-141 PO; -SM A1TAB PO; +TRAZO50TA PO
[2018-08-23 23:24] LABS: INFLUENZA A AMPLIFICATION NEGATIVE (NEGATIVE); INFLUENZA B AMPLIFICATION NEGATIVE (NEGATIVE)
[2018-08-23] MEDS ORDERED: IPRATROPIUM 0.5MG/ALBUTEROL 2.5MG INH SOL UD 3ML (DUONEB)(J7620) NEB ONE (23:30)
[2018-08-23] MEDS ORDERED: dexameTHASONE 20 MG/5 ML VIAL (J1100) IV ONE (23:30)
[2018-08-23] MEDS ORDERED: AZITHROMYCIN 250 MG TAB PO ONE (23:45)
[2018-08-24] MEDS ORDERED: methylPREDNISolone SUSP 40 MG/ML (DEPO-medrol) VIAL (J1030) IM ONE
[2018-08-24] MEDS ORDERED: ALBU17IN2 INH (00:13)
[2018-08-24] MEDS ORDERED: MEDR4PAK PO (00:13)
[2018-08-24] MEDS ORDERED: ZITH500T PO (00:13)
--- NOTE | 2018-08-24 01:03 | REP ---
Clinical: Shortness of breath . Comparison: 05/28/2018 . Technique: PA and lateral. Findings: The mediastinum and cardiac silhouette are normal. The lung negrete are clear and without acute consolidation, effusion, or pneumothorax. The skeletal structures are intact and normal. Impression: 1. No acute cardiopulmonary process. Electronically Signed by Nikita Smith MD 08/24/2018 12:54 A
[2018-08-24 01:15] VITALS: BP 117/68
== END 2018-08-24 01:20 | disposition home or self-care (01) ==
LOC: M ED 21:55
DX: J45.998 Other asthma (principal); J44.9 Chronic obstructive pulmonary disease, unspecified; E78.5 Hyperlipidemia, unspecified; F33.9 Major depressive disorder, recurrent, unspecified; Z79.899 Other long term (current) drug therapy; Z79.82 Long term (current) use of aspirin; Z88.8 Allergy status to other drugs, medicaments and biological substances
CPT/HCPCS: 71046; 87502; 87880; 96372; 99284; J1030

== ENCOUNTER 2018-09-01 13:49 | Emergency (ER) | payer OTHER ==
[~2018-09-01] VITALS: Ht 180.3 cm; Wt 115.9 kg
[~2018-09-01 13:49] MED LIST changes: +ALBU17IN2 INH; +MEDR4PAK PO; +ZITH500T PO
[2018-09-01] MEDS ORDERED: METO1TAB32 (14:01)
[2018-09-01] MEDS ORDERED: ROZE8TAB16 (14:01)
[2018-09-01] MEDS ORDERED: NS 1,000 ML IV ONE (15:00)
[2018-09-01] MEDS ORDERED: ONDANSETRON 4MG/2ML VIAL (J2405) IV ONE (15:00)
[2018-09-01] MEDS ORDERED: MORPHINE 4 MG/ML 1ML VIAL/SYRINGE (J2270) IV ONE ×2 (15:00→16:15)
[2018-09-01 15:11] LABS: BASO % 0.5 % (0.0-1.0); EOS # 0.1 10^3/uL (0.0-0.50); EOS % 0.6 % (0.0-3.0); HEMATOCRIT 45.1 % (42.0-52.0); HEMOGLOBIN 15.1 g/dl (13.5-17.5); LYMPH # 2.1 10^3/uL (1.5-4.5); LYMPH % 23.8 % (24.0-44.0); MEAN CORPUSCULAR HEMOGLOBIN 30.8 pg (27.0-33.0); MEAN CORPUSCULAR HGB CONC 33.5 g/dl (32.0-36.5); MONO # 0.6 10^3/uL (0.0-0.8); NEUTROPHILS # 5.8 10^3/uL (1.8-7.7); NEUTROPHILS % 66.9 % (36.0-66.0); PLATELET COUNT, AUTOMATED 234 10^3/uL (150-450); WHITE BLOOD COUNT 8.7 10^3/uL (4.0-10.0)
[2018-09-01 15:44] LABS: ALBUMIN 3.5 GM/DL (3.2-5.2); ALT/SGPT 82 U/L (12-78); BILIRUBIN,DIRECT 0.2 MG/DL (0.0-0.2); BILIRUBIN,TOTAL 0.5 MG/DL (0.2-1.0); BLOOD UREA NITROGEN 25 MG/DL (7-18); CALCIUM LEVEL 8.4 MG/DL (8.5-10.1); CARBON DIOXIDE LEVEL 27 MEQ/L (21-32); CHLORIDE LEVEL 104 MEQ/L (98-107); CREATININE FOR GFR 1.13 MG/DL (0.70-1.30); GLOMERULAR FILTRATION RATE > 60.0 (>56); GLUCOSE, FASTING 90 MG/DL (70-100); LIPASE 322 U/L (73-393); POTASSIUM SERUM 4.6 MEQ/L (3.5-5.1); SODIUM LEVEL 137 MEQ/L (136-145); TOTAL PROTEIN 6.8 GM/DL (6.4-8.2)
[2018-09-01] MEDS ORDERED: ISOVUE-370 76% 100ML VIAL (Q9967) As Ordered ONE (15:48)
--- NOTE | 2018-09-01 16:38 | REP ---
CT of the abdomen and pelvis with IV contrast, without bowel contrast: Comparison is 03/07/2016. The visualized lung negrete are unremarkable. The hepatic parenchyma is homogeneous. There are surgical clips in the gallbladder fossa. The pancreas and spleen are normal size, homogeneous and unremarkable. The adrenals and kidneys are unremarkable. There is no hydronephrosis or perinephric stranding. There are no renal or ureteral calculi. There are no bladder calculi. The abdominal aorta is unremarkable. There is no bowel distension or obstruction. There are occasional diverticula in the ascending colon and there are diverticula in the descending colon and sigmoid colon. There is no CT evidence of acute diverticulitis. There is no pneumoperitoneum. There is no ascites. Pelvis: The appendix is unremarkable. There is no ascites or adenopathy. The bladder is unremarkable. Impression: The appendix has a normal appearance. There is no hydronephrosis. There are no renal, ureteral or bladder calculi. There is no perinephric stranding. Cholecystectomy. Diverticulosis without diverticulitis. No adenopathy or ascites. There is degenerative disc disease throughout the lumbar spine. Electronically Signed by Michel Park MD 09/01/2018 04:29 P
[2018-09-01] MEDS ORDERED: ONDA4TAB6 PO (16:41)
[2018-09-01 16:51] VITALS: BP 135/80
== END 2018-09-01 16:53 | disposition home or self-care (01) ==
LOC: M ED 13:49
DX: R10.31 Right lower quadrant pain (principal); R11.0 Nausea; I10 Essential (primary) hypertension; K21.9 Gastro-esophageal reflux disease without esophagitis; N40.0 Benign prostatic hyperplasia without lower urinary tract symptoms; F19.10 Other psychoactive substance abuse, uncomplicated; F60.9 Personality disorder, unspecified; F41.9 Anxiety disorder, unspecified; Z95.1 Presence of aortocoronary bypass graft; Z95.5 Presence of coronary angioplasty implant and graft; Z88.1 Allergy status to other antibiotic agents; Z79.02 Long term (current) use of antithrombotics/antiplatelets; Z79.82 Long term (current) use of aspirin; F17.210 Nicotine dependence, cigarettes, uncomplicated
CPT/HCPCS: 74177; 80048; 80076; 81001; 83690; 85025; 96374; 96375; 96376; 99284; J2270; J2405; Q9967

== ENCOUNTER 2018-09-06 23:24 | Emergency (ER) | payer OTHER ==
[~2018-09-06] VITALS: Ht 180.3 cm; Wt 118.2 kg
[~2018-09-06 23:24] MED LIST changes: +METO1TAB32; +ONDA4TAB6 PO; +ROZE8TAB16
--- NOTE | 2018-09-07 00:34 | ECGEPIP ---
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
[2018-09-07] MEDS ORDERED: ONDANSETRON 4MG/2ML VIAL (J2405) IV ONE (00:45)
[2018-09-07] MEDS ORDERED: NS 1,000 ML IV ONE ×2 (00:45→02:45)
[2018-09-07] MEDS ORDERED: GI COCKTAIL 50ML BTL(HYOSCYAMINE/MAALOX/LIDOCAINE VISCOUS)(1:3:1) PO ONE (00:45)
[2018-09-07] MEDS ORDERED: IPRATROPIUM 0.5MG/ALBUTEROL 2.5MG INH SOL UD 3ML (DUONEB)(J7620) NEB ONE (00:45)
[2018-09-07 01:02] LABS: BASO % 0.3 % (0.0-1.0); EOS % 0.3 % (0.0-3.0); HEMATOCRIT 42.4 % (42.0-52.0); HEMOGLOBIN 14.3 g/dl (13.5-17.5); LYMPH # 2.9 10^3/uL (1.5-4.5); LYMPH % 26.8 % (24.0-44.0); MEAN CORPUSCULAR HEMOGLOBIN 31.5 pg (27.0-33.0); MEAN CORPUSCULAR HGB CONC 33.7 g/dl (32.0-36.5); MEAN CORPUSCULAR VOLUME 93.4 fl (80.0-96.0); MONO # 0.7 10^3/uL (0.0-0.8); MONO % 6.8 % (0.0-5.0); NEUTROPHILS # 7.1 10^3/uL (1.8-7.7); NEUTROPHILS % 65.3 % (36.0-66.0); PLATELET COUNT, AUTOMATED 221 10^3/uL (150-450); RED BLOOD COUNT 4.54 10^6/uL (4.30-6.10); WHITE BLOOD COUNT 10.9 10^3/uL (4.0-10.0)
[2018-09-07 01:15] LABS: ALBUMIN 3.2 GM/DL (3.2-5.2); ALT/SGPT 70 U/L (12-78); BILIRUBIN,DIRECT 0.1 MG/DL (0.0-0.2); BILIRUBIN,TOTAL 0.4 MG/DL (0.2-1.0); BLOOD UREA NITROGEN 28 MG/DL (7-18); CARBON DIOXIDE LEVEL 22 MEQ/L (21-32); CHLORIDE LEVEL 103 MEQ/L (98-107); CPK CREATINE PHOSPHOKINASE 198 U/L (39-308); CREATININE FOR GFR 1.14 MG/DL (0.70-1.30); GLOMERULAR FILTRATION RATE > 60.0 (>56); GLUCOSE, FASTING 88 MG/DL (70-100); LIPASE 688 U/L (73-393); MB/CK RELATIVE INDEX 2.47 (< OR =4); POTASSIUM SERUM 4.4 MEQ/L (3.5-5.1); SODIUM LEVEL 135 MEQ/L (136-145); TOTAL PROTEIN 6.3 GM/DL (6.4-8.2); TROPONIN I < 0.02 NG/ML (< 0.10)
[2018-09-07] MEDS ORDERED: MORPHINE 4 MG/ML 1ML VIAL/SYRINGE (J2270) IV PRN (02:00)
[2018-09-07 02:08] LABS: ETHYL ALCOHOL (ETHANOL) 0.282 % (0.000-0.010)
--- NOTE | 2018-09-07 05:01 | REP ---
Clinical: Chest and Abdominal pain . Comparison: 05/28/2018 . Technique: PA and lateral. Findings: The mediastinum and cardiac silhouette are normal. The lung negrete are clear and without acute consolidation, effusion, or pneumothorax. The skeletal structures are intact and normal. Impression: 1. No acute cardiopulmonary process. Electronically Signed by Nikita Smith MD 09/07/2018 04:53 A
[2018-09-07 06:52] LABS: CPK CREATINE PHOSPHOKINASE 170 U/L (39-308); LIPASE 247 U/L (73-393); MB/CK RELATIVE INDEX 2.53 (< OR =4); TROPONIN I < 0.02 NG/ML (< 0.10)
[2018-09-07 07:00] VITALS: BP 107/65
[2018-09-07] MEDS ORDERED: PROT1TAB2 PO (07:04)
[2018-09-07] MEDS ORDERED: CARA1TAB6 PO (07:04)
[2018-09-07] MEDS ORDERED: SUCRALFATE 1 GM TAB PO ONE (07:15)
[2018-09-07] MEDS ORDERED: PANTOPRAZOLE 40MG INJ (PROTONIX) (C9113) IV ONE (07:15)
--- NOTE | 2018-09-07 23:39 | ECGEPIP ---
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
== END 2018-09-07 07:24 | disposition home or self-care (01) ==
LOC: M ED 23:24
DX: K29.20 Alcoholic gastritis without bleeding (principal); J44.9 Chronic obstructive pulmonary disease, unspecified; I25.10 Atherosclerotic heart disease of native coronary artery without angina pectoris; I25.2 Old myocardial infarction; Z88.8 Allergy status to other drugs, medicaments and biological substances; F17.210 Nicotine dependence, cigarettes, uncomplicated
CPT/HCPCS: 36415; 71046; 80048; 80076; 82550; 82553; 83690; 85025; 93005; 93041; 94640; 96361; 96374; 96375; 99285; C9113; G0480; J2405

== ENCOUNTER → 2018-10-06 | Outpatient (REF) | payer OTHER, MEDICAID ==
[~2018-10-06] MED LIST changes: +CARA1TAB6 PO; +PROT1TAB2 PO; -TRAZ-160 PO; +TRAZ-252 PO; +TRAZ1TAB10 PO; -TRAZO50TA PO
[2018-10-06 18:12] LABS: BASO % 0.6 % (0.0-1.0); EOS # 0.1 10^3/uL (0.0-0.50); EOS % 1.2 % (0.0-3.0); HEMATOCRIT 43.9 % (42.0-52.0); HEMOGLOBIN 14.6 g/dl (13.5-17.5); LYMPH # 2.1 10^3/uL (1.5-4.5); LYMPH % 42.7 % (24.0-44.0); MEAN CORPUSCULAR HGB CONC 33.3 g/dl (32.0-36.5); MEAN CORPUSCULAR VOLUME 93.2 fl (80.0-96.0); MONO # 0.6 10^3/uL (0.0-0.8); MONO % 11.3 % (0.0-5.0); NEUTROPHILS # 2.2 10^3/uL (1.8-7.7); NEUTROPHILS % 43.6 % (36.0-66.0); PLATELET COUNT, AUTOMATED 211 10^3/uL (150-450); RED BLOOD COUNT 4.71 10^6/uL (4.30-6.10)
[2018-10-06 18:24] LABS: ALBUMIN 3.2 GM/DL (3.2-5.2); ALT/SGPT 60 U/L (12-78); BILIRUBIN,TOTAL 0.4 MG/DL (0.2-1.0); BLOOD UREA NITROGEN 19 MG/DL (7-18); CALCIUM LEVEL 8.3 MG/DL (8.5-10.1); CARBON DIOXIDE LEVEL 23 MEQ/L (21-32); CHLORIDE LEVEL 107 MEQ/L (98-107); CHOLESTEROL LEVEL 115 MG/DL (<200); CHOLESTEROL RISK RATIO 1.575 (<5); CREATININE FOR GFR 1.06 MG/DL (0.70-1.30); GLOMERULAR FILTRATION RATE > 60.0 (>56); GLUCOSE, FASTING 90 MG/DL (70-100); HDL CHOLESTEROL 73 MG/DL (>40); LDL CHOLESTEROL -4 MG/DL (<100); NON-HDL-C 42 MG/DL; POTASSIUM SERUM 3.9 MEQ/L (3.5-5.1); SODIUM LEVEL 138 MEQ/L (136-145); THYROID STIMULATING HORMONE 0.463 uIU/ML (0.358-3.740); TOTAL 25(OH) VITAMIN D 32.7 NG/ML (30.0-100.0); TOTAL PROTEIN 6.3 GM/DL (6.4-8.2); TRIGLYCERIDES LEVEL 231 MG/DL (<150)
[2018-10-06 19:01] LABS: HEMOGLOBIN A1c 6.1 %
== END ==
LOC: M LAB REF 17:11
PROVIDERS: ATTEND Nurse Practitioner Family
DX: Z13.9 Encounter for screening, unspecified (principal); E78.5 Hyperlipidemia, unspecified; I10 Essential (primary) hypertension

== ENCOUNTER → 2019-07-12 | Outpatient (REF) | payer OTHER, MEDICAID ==
[~2019-07-12] MED LIST changes: -ALBU17IN2 INH; -BUPR300T34 PO; +BUPR300T92 PO; -DULO1CAP3 PO; +DULO1CAP6 PO; +HYDR1TAB33 PO; -HYDRO50TAB PO; -OMEP40CA2 PO; +OMEP40CA97 PO; +PROV108A INH; +QUET100T2 PO; -QUET1TAB8 PO
[2019-07-12 12:40] LABS: BASO % 0.6 % (0.0-1.0); EOS # 0.1 10^3/uL (0.0-0.5); EOS % 2.9 % (0.0-3.0); HEMATOCRIT 46.8 % (42.0-52.0); HEMOGLOBIN 15.5 g/dl (13.5-17.5); LYMPH # 1.7 10^3/uL (1.5-5.0); LYMPH % 34.4 % (24.0-44.0); MEAN CORPUSCULAR HEMOGLOBIN 33.1 pg (27.0-33.0); MEAN CORPUSCULAR HGB CONC 33.1 g/dl (32.0-36.5); MONO # 0.5 10^3/uL (0.0-0.8); MONO % 9.9 % (0.0-5.0); NEUTROPHILS # 2.5 10^3/uL (1.5-8.5); NEUTROPHILS % 51.8 % (36.0-66.0); PLATELET COUNT, AUTOMATED 220 10^3/uL (150-450); RED BLOOD COUNT 4.68 10^6/uL (4.30-6.10); WHITE BLOOD COUNT 4.9 10^3/uL (4.0-10.0)
[2019-07-12 13:08] LABS: ALBUMIN 3.8 GM/DL (3.2-5.2); ALT/SGPT 79 U/L (12-78); BILIRUBIN,TOTAL 0.5 MG/DL (0.2-1.0); BLOOD UREA NITROGEN 15 MG/DL (7-18); CALCIUM LEVEL 9.5 MG/DL (8.5-10.1); CARBON DIOXIDE LEVEL 32 MEQ/L (21-32); CHLORIDE LEVEL 106 MEQ/L (98-107); CHOLESTEROL LEVEL 175 MG/DL (<200); CHOLESTEROL RISK RATIO 2.916 (<5); CREATININE FOR GFR 0.88 MG/DL (0.70-1.30); FREE T4 0.84 NG/DL (0.76-1.46); GLOMERULAR FILTRATION RATE > 60.0 (>56); GLUCOSE, FASTING 90 MG/DL (70-100); HDL CHOLESTEROL 60 MG/DL (>40); LDL CHOLESTEROL 98 MG/DL (<100); NON-HDL-C 115 MG/DL; SODIUM LEVEL 142 MEQ/L (136-145); TOTAL 25(OH) VITAMIN D 22.6 NG/ML (30.0-100.0); TOTAL PROTEIN 6.6 GM/DL (6.4-8.2); TRIGLYCERIDES LEVEL 86 MG/DL (<150)
[2019-07-12 13:44] LABS: HEMOGLOBIN A1c 5.5 %
== END ==
LOC: M LAB REF 12:01
PROVIDERS: ATTEND Nurse Practitioner Family
DX: I11.9 Hypertensive heart disease without heart failure (principal); Z13.9 Encounter for screening, unspecified; R73.03 Prediabetes; Z77.22 Contact with and (suspected) exposure to environmental tobacco smoke (acute) (chronic); E66.09 Other obesity due to excess calories; R42 Dizziness and giddiness; I50.9 Heart failure, unspecified

== ENCOUNTER 2019-10-01 22:20 | Emergency (ER) | payer MEDICAID, OTHER ==
[~2019-10-01] VITALS: Ht 180.3 cm; Wt 120.5 kg
[~2019-10-01 22:20] MED LIST changes: -ACET120S; +ACET125EL
[2019-10-01 22:47] LABS: BASO # 0.1 10^3/uL (0.0-0.2); BASO % 0.6 % (0.0-1.0); EOS # 0.1 10^3/uL (0.0-0.5); EOS % 0.6 % (0.0-3.0); HEMOGLOBIN 15.2 g/dl (13.5-17.5); LYMPH # 3.2 10^3/uL (1.5-5.0); LYMPH % 40.1 % (24.0-44.0); MEAN CORPUSCULAR HEMOGLOBIN 32.5 pg (27.0-33.0); MEAN CORPUSCULAR HGB CONC 33.8 g/dl (32.0-36.5); MEAN CORPUSCULAR VOLUME 96.4 fl (80.0-96.0); MONO # 0.8 10^3/uL (0.0-0.8); MONO % 9.7 % (0.0-5.0); NEUTROPHILS # 3.9 10^3/uL (1.5-8.5); NEUTROPHILS % 48.8 % (36.0-66.0); PLATELET COUNT, AUTOMATED 225 10^3/uL (150-450); RED BLOOD COUNT 4.67 10^6/uL (4.30-6.10); WHITE BLOOD COUNT 8.1 10^3/uL (4.0-10.0)
[2019-10-01 23:14] LABS: BLOOD UREA NITROGEN 9 MG/DL (7-18); CALCIUM LEVEL 8.3 MG/DL (8.5-10.1); CARBON DIOXIDE LEVEL 25 MEQ/L (21-32); CHLORIDE LEVEL 102 MEQ/L (98-107); CK-MB VALUE MASS 5.4 NG/ML (<3.6); CPK CREATINE PHOSPHOKINASE 407 U/L (39-308); CREATININE FOR GFR 0.92 MG/DL (0.70-1.30); ETHYL ALCOHOL (ETHANOL) 0.291 % (0.000-0.010); GLOMERULAR FILTRATION RATE > 60.0 (>56); GLUCOSE, FASTING 84 MG/DL (70-100); INR 1.07; MB/CK RELATIVE INDEX 1.33 (< OR =4); PARTIAL THROMBOPLASTIN TIME 28.4 SECONDS (25.0-38.4); POTASSIUM SERUM 3.9 MEQ/L (3.5-5.1); PROTHROMBIN TIME 13.6 SECONDS (11.8-14.0); SODIUM LEVEL 134 MEQ/L (136-145); TROPONIN I < 0.02 NG/ML (< 0.10)
[2019-10-01 23:15] LABS: AMPHETAMINES LEVEL URINE NEGATIVE (NEGATIVE); BARBITURATES URINE NEGATIVE (NEGATIVE); BENZODIAZEPINES URINE NEGATIVE (NEGATIVE); CANNABINOIDS URINE NEGATIVE (NEGATIVE); COCAINE METABOLITE URINE NEGATIVE (NEGATIVE); METHADONE URINE NEGATIVE (NEGATIVE); OPIATES URINE NEGATIVE (NEGATIVE); PHENCYCLIDINE URINE NEGATIVE (NEGATIVE)
[2019-10-01] MEDS ORDERED: ISOVUE-370 76% 100ML VIAL As Ordered ONE (23:23)
[2019-10-01] MEDS ORDERED: KETOROLAC 30 MG/ML 1ML VIAL IV ONE (23:30)
[2019-10-01] MEDS ORDERED: NS 1,000 ML IV ONE (23:30)
--- NOTE | 2019-10-01 23:52 | REPVR ---
PROCEDURE INFORMATION: Exam: CT Angiography Chest With Contrast Exam date and time: 10/01/2019 11:18 PM Age: 59 years old Clinical indication: Chest pain; Type not specified; Additional info: Cp TECHNIQUE: Imaging protocol: Computed tomographic angiography of the chest with intravenous contrast. 3D rendering: MIP and/or 3D reconstructed images were created by the technologist. Radiation optimization: All CT scans at this facility use at least one of these dose optimization techniques: automated exposure control; mA and/or kV adjustment per patient size (includes targeted exams where dose is matched to clinical indication); or iterative reconstruction. Contrast material: ISO; Contrast volume: 75 ml; Contrast route: AC; COMPARISON: CT ANGIO CHEST 12/07/2014 3:03 AM FINDINGS: Pulmonary arteries: Peripheral pulmonary artery evaluation limited by cardiac and respiratory motion artifact. Central pulmonary arteries show no intraluminal defect suggestive of clot. Aorta: No thoracic aortic aneurysm or dissection. Lungs: Pulmonary vascular/interstitial pattern does not suggest active pulmonary edema. No suspicious lung mass or air space process. No central endobronchial lesion. Pleural space: No pleural effusion or pneumothorax. Heart: No overt cardiac enlargement or abnormal volume of pericardial fluid. Lymph nodes: No enlarged mediastinal lymph nodes. Liver: Liver is decreased in density, consistent with fatty infiltration. Bones/joints: Bony structures show no acute fracture or destructive process. Degenerative changes asymmetrically in the right glenohumeral joint, with probable chronic right rotator cuff tear Other findings: No abnormality of the thoracic inlet. IMPRESSION: 1. No evidence of acute, central pulmonary embolus. Peripheral pulmonary arterial evaluation is limited by cardiac and respiratory motion artifact. 2. No other acute or concerning focal intrathoracic abnormality. Electronically signed by: Robinson Clifford On 10/01/2019 23:52:22 PM
[2019-10-02 04:07] LABS: CK-MB VALUE MASS 5.1 NG/ML (<3.6); CPK CREATINE PHOSPHOKINASE 370 U/L (39-308); MB/CK RELATIVE INDEX 1.38 (< OR =4); TROPONIN I < 0.02 NG/ML (< 0.10)
[2019-10-02 04:31] VITALS: BP 104/70
--- NOTE | 2019-10-02 11:03 | REP ---
Single view chest: 10/01/2019. Indication: Chest pain. Comparison: 09/15/2018. Findings: The lungs are clear. There is no pleural effusion or pneumothorax. The cardiac silhouette is unremarkable. Impression: Clear lungs. Electronically Signed by Daljit Stephens DO 10/02/2019 10:54 A
--- NOTE | 2019-10-03 15:56 | ECGEPIP ---
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
--- NOTE | 2019-10-03 15:58 | ECGEPIP ---
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
== END 2019-10-02 04:54 | disposition home or self-care (01) ==
LOC: EDBD 22:20 → M ED 22:20
DX: R07.9 Chest pain, unspecified (principal); K21.9 Gastro-esophageal reflux disease without esophagitis; I10 Essential (primary) hypertension; E78.5 Hyperlipidemia, unspecified; F10.120 Alcohol abuse with intoxication, uncomplicated; F17.200 Nicotine dependence, unspecified, uncomplicated; F19.10 Other psychoactive substance abuse, uncomplicated; F41.9 Anxiety disorder, unspecified; F32.9 Major depressive disorder, single episode, unspecified; Z79.51 Long term (current) use of inhaled steroids; Z79.82 Long term (current) use of aspirin; Z79.899 Other long term (current) drug therapy; Z87.442 Personal history of urinary calculi; Z88.8 Allergy status to other drugs, medicaments and biological substances
CPT/HCPCS: 71045; 71275; 80048; 80307; 82550; 82553; 85025; 85610; 85730; 93005; 96361; 96374; 99285; G0480; J1885; Q9967

== ENCOUNTER 2021-01-12 13:56 | Emergency (ER) | payer OTHER ==
[~2021-01-12] VITALS: Ht 180.3 cm; Wt 112.0 kg
[2021-01-12 13:56] VITALS: BP 159/85
[~2021-01-12 13:56] MED LIST changes: +AMLO1TAB24 PO; -AMLO5TAB6 PO; +ASPI-569 PO; -ASPI81TAEC PO; +BUPR150T12 PO; -BUPR150T3 PO; +GABA-283 PO; -GABA-845 PO; -LISI-538 PO; +LISI10TA22 PO; -LISI10TA4 PO; +LISI20TA33 PO; -LISI40TA PO; +LISI40TA4 PO; +OMEP40CA4 PO; -OMEP40CA97 PO; +PANT40TA29 PO; -PANT40TA3 PO; +QUET50TA4 PO; -QUET5TAB PO
== END 2021-01-12 16:31 | disposition left against medical advice (07) ==
LOC: M ED 13:56
DX: Z53.21 Procedure and treatment not carried out due to patient leaving prior to being seen by health care provider (principal)

== ENCOUNTER → 2021-01-16 | Outpatient (CLI) | payer OTHER ==
--- NOTE | 2021-01-16 12:58 | REP ---
INDICATION: SPRAIN COMPARISON: None TECHNIQUE: Five views FINDINGS: There is minimal tricompartmental marginal osteophytosis. The compartments are symmetric and relatively well maintained. There is no acute fracture, dislocation, or subluxation. IMPRESSION: Within normal limits for age. Minimal degenerative changes are identified as described above. <Electronically signed by Lam Suarez > 01/16/21 [id number]
== END ==
LOC: M WUC 11:33
PROVIDERS: ATTEND Physician Assistant
DX: S83.412A Sprain of medial collateral ligament of left knee, initial encounter (principal); X58.XXXA Exposure to other specified factors, initial encounter; Y92.9 Unspecified place or not applicable

== ENCOUNTER 2021-01-29 15:10 | Emergency (ER) | payer OTHER ==
[~2021-01-29] VITALS: Ht 180.3 cm; Wt 109.1 kg
[2021-01-29 15:16] VITALS: BP 112/72
--- NOTE | 2021-01-30 21:29 | ECGEPIP ---
[facility] - ED Test Date: 2021-01-29 Pat Name: CHARLES JOSEPH Department: Room: - Gender: Male Application Support Lead: Shefali DA SILVA : 1960 Requested By: MANUEL Pan Order Number: [id number] Reading MD: Khang Mcclelland Measurements Intervals [place] Rate: 62 P: 29 VA: 152 QRS: 2 QRSD: 80 T: 37 QT: 404 QTc: 410 Interpretive Statements Normal sinus rhythm Similar to tracing done 10-01-19 Electronically Signed on 01-30-2021 21:29:17 EDT by Khang Mcclelland
== END 2021-01-29 19:46 | disposition left against medical advice (07) ==
LOC: M ED 15:10
DX: Z53.21 Procedure and treatment not carried out due to patient leaving prior to being seen by health care provider (principal)

== ENCOUNTER 2021-02-05 20:13 | Emergency (ER) | payer OTHER ==
[~2021-02-05] VITALS: Ht 180.3 cm; Wt 109.1 kg
--- NOTE | 2021-02-06 04:50 | REPVR ---
PROCEDURE INFORMATION: Exam: XR Left Knee Exam date and time: 02/05/2021 9:29 PM Age: 60 years old Clinical indication: Pain; Knee; Left; Additional info: Pain swelling limited rom TECHNIQUE: Imaging protocol: XR Left knee. Views: 4 or more views. COMPARISON: CR KNEE COMPLETE 01/16/2021 12:00 PM FINDINGS: Bones/joints: There is a moderate joint effusion. There is no evidence of acute fracture or dislocation. Small osteophytes are seen in the patellofemoral compartment. Joint spaces are preserved. Soft tissues: Normal. Vasculature: Mild vascular calcifications are noted. IMPRESSION: 1. Joint effusion. 2. No fracture. 3. Mild degenerative changes in the patellofemoral compartment. Electronically signed by: Shannon Castro On 02/06/2021 04:49:35 AM
[2021-02-06] MEDS ORDERED: DICL20GE TP (05:40)
[2021-02-06 06:04] VITALS: BP 126/82
== END 2021-02-06 06:06 | disposition home or self-care (01) ==
LOC: M ED 20:13
DX: M25.462 Effusion, left knee (principal); M25.562 Pain in left knee; X50.0XXA Overexertion from strenuous movement or load, initial encounter; Y92.410 Unspecified street and highway as the place of occurrence of the external cause; Y93.9 Activity, unspecified; Y99.9 Unspecified external cause status; M17.12 Unilateral primary osteoarthritis, left knee; M25.762 Osteophyte, left knee; Z96.651 Presence of right artificial knee joint; I25.10 Atherosclerotic heart disease of native coronary artery without angina pectoris; J44.9 Chronic obstructive pulmonary disease, unspecified; F17.200 Nicotine dependence, unspecified, uncomplicated; Z79.82 Long term (current) use of aspirin; Z79.899 Other long term (current) drug therapy

== ENCOUNTER 2022-05-08 05:31 | Emergency (ER) | payer OTHER ==
[~2022-05-08] VITALS: Ht 180.3 cm; Wt 118.8 kg
[~2022-05-08 05:31] MED LIST changes: -ACET1TAB16 PO; +ACET300T48 PO; +ALBU6.7H6 INH; +DICL20GE TP; -PROV108A INH
[2022-05-08 05:36] VITALS: BP 117/79
[2022-05-08 08:36] LABS: BASO % 0.5 % (0.0-1.0); EOS # 0.1 10^3/uL (0.0-0.5); EOS % 1.1 % (0.0-3.0); HEMATOCRIT 41.1 % (42.0-52.0); HEMOGLOBIN 13.6 g/dl (13.5-17.5); LYMPH # 3.2 10^3/uL (1.5-5.0); LYMPH % 51.2 % (24.0-44.0); MEAN CORPUSCULAR HEMOGLOBIN 30.6 pg (27.0-33.0); MEAN CORPUSCULAR HGB CONC 33.1 g/dl (32.0-36.5); MEAN CORPUSCULAR VOLUME 92.4 fl (80.0-96.0); MONO # 0.5 10^3/uL (0.0-0.8); MONO % 8.8 % (2.0-8.0); NEUTROPHILS # 2.4 10^3/uL (1.5-8.5); NEUTROPHILS % 38.1 % (36.0-66.0); PLATELET COUNT, AUTOMATED 228 10^3/uL (150-450); RED BLOOD COUNT 4.45 10^6/uL (4.30-6.10); WHITE BLOOD COUNT 6.2 10^3/uL (4.0-10.0)
[2022-05-08 08:50] LABS: LIPASE 51 U/L (12-53)
[2022-05-08 08:53] LABS: ALBUMIN 3.7 G/DL (3.2-5.2); ALKALINE PHOSPHATASE 63 U/L (46-116); ALT/SGPT 33 U/L (7.0-40); AST/SGOT 34 U/L (<34); BILIRUBIN,DIRECT 0.2 MG/DL (<0.4); BILIRUBIN,TOTAL 0.4 MG/DL (0.3-1.2); BLOOD UREA NITROGEN 19 MG/DL (9-23); CALCIUM LEVEL 8.7 MG/DL (8.3-10.6); CARBON DIOXIDE LEVEL 26 MMOL/L (20-31); CHLORIDE LEVEL 107 MMOL/L (98-107); CREATININE FOR GFR 1.07 MG/DL (0.70-1.30); GLOMERULAR FILTRATION RATE > 60.0 (>49); GLUCOSE, FASTING 97 MG/DL (74-106); POTASSIUM SERUM 4.3 MMOL/L (3.5-5.1); SODIUM LEVEL 142 MMOL/L (136-145); TOTAL PROTEIN 6.4 G/DL (5.7-8.2)
[2022-05-08] MEDS ORDERED: DICYCLOMINE 10 MG CAP PO ONE (09:40)
[2022-05-08] MEDS ORDERED: ISOVUE-370 76% 100ML VIAL As Ordered ONE (09:51)
[2022-05-08] MEDS ORDERED: AUGMENTIN 875 MG TAB PO ONE (11:20)
[2022-05-08] MEDS ORDERED: AMOX875T2 PO (11:26)
== END 2022-05-08 11:43 | disposition home or self-care (01) ==
LOC: M ED 10:49
DX: K94.03 Colostomy malfunction (principal); I25.2 Old myocardial infarction; I10 Essential (primary) hypertension; E78.5 Hyperlipidemia, unspecified; K21.9 Gastro-esophageal reflux disease without esophagitis; F17.200 Nicotine dependence, unspecified, uncomplicated; F19.10 Other psychoactive substance abuse, uncomplicated; K57.92 Diverticulitis of intestine, part unspecified, without perforation or abscess without bleeding; Z87.442 Personal history of urinary calculi; Z88.6 Allergy status to analgesic agent; Z79.51 Long term (current) use of inhaled steroids; Z79.82 Long term (current) use of aspirin; Z79.899 Other long term (current) drug therapy

== ENCOUNTER 2022-05-13 14:34 | Emergency (ER) | payer OTHER ==
[~2022-05-13] VITALS: Ht 180.3 cm; Wt 113.6 kg
[~2022-05-13 14:34] MED LIST changes: +AMOX875T2 PO
[2022-05-13] MEDS ORDERED: LISI20TA33 (14:50)
[2022-05-13] MEDS ORDERED: VENL37.598 (14:50)
[2022-05-13] MEDS ORDERED: NITR0.4S14 (14:50)
[2022-05-13] MEDS ORDERED: MIRT-10 (14:50)
[2022-05-13] MEDS ORDERED: EZET10TA21 (14:50)
[2022-05-13] MEDS ORDERED: GABA600T4 (14:50)
[2022-05-13] MEDS ORDERED: BACL10TA2 (14:50)
[2022-05-13 16:38] LABS: BASO % 0.6 % (0.0-1.0); EOS # 0.1 10^3/uL (0.0-0.5); HEMATOCRIT 42.7 % (42.0-52.0); LYMPH # 1.6 10^3/uL (1.5-5.0); LYMPH % 31.3 % (24.0-44.0); MEAN CORPUSCULAR HEMOGLOBIN 30.7 pg (27.0-33.0); MEAN CORPUSCULAR HGB CONC 32.8 g/dl (32.0-36.5); MEAN CORPUSCULAR VOLUME 93.6 fl (80.0-96.0); MONO # 0.4 10^3/uL (0.0-0.8); MONO % 8.4 % (2.0-8.0); NEUTROPHILS % 58.1 % (36.0-66.0); PLATELET COUNT, AUTOMATED 189 10^3/uL (150-450); RED BLOOD COUNT 4.56 10^6/uL (4.30-6.10); WHITE BLOOD COUNT 5.1 10^3/uL (4.0-10.0)
[2022-05-13] MEDS ORDERED: ISOVUE-370 76% 100ML VIAL As Ordered ONE (16:41)
[2022-05-13 16:47] LABS: INR 0.93; PROTHROMBIN TIME 12.7 SECONDS (12.5-14.5)
[2022-05-13 16:48] LABS: PARTIAL THROMBOPLASTIN TIME 26.8 SECONDS (24.8-34.2)
[2022-05-13 16:59] LABS: LIPASE 46 U/L (12-53)
[2022-05-13 17:01] LABS: ALBUMIN 3.5 G/DL (3.2-5.2); ALKALINE PHOSPHATASE 68 U/L (46-116); ALT/SGPT 53 U/L (7.0-40); AST/SGOT 62 U/L (<34); BILIRUBIN,DIRECT < 0.1 MG/DL (<0.4); BILIRUBIN,TOTAL 0.2 MG/DL (0.3-1.2); TOTAL PROTEIN 6.3 G/DL (5.7-8.2)
[2022-05-13] MEDS ORDERED: MORPHINE 4 MG/ML 1ML VIAL IV ONE (18:15)
[2022-05-13] MEDS ORDERED: CIPROFLOXACIN 500MG TABLET PO ONE (18:45)
[2022-05-13] MEDS ORDERED: PERCOCET 5MG/325MG TAB PO ONE (18:45)
[2022-05-13] MEDS ORDERED: metroNIDAZOLE (FLAGYL) 500MG TABLET PO ONE (18:45)
[2022-05-13] MEDS ORDERED: CIPR-249 PO (18:47)
[2022-05-13] MEDS ORDERED: METR-265 PO (18:47)
[2022-05-13 19:27] VITALS: BP 143/83
== END 2022-05-13 19:27 | disposition home or self-care (01) ==
LOC: M ED 14:34
DX: K57.30 Diverticulosis of large intestine without perforation or abscess without bleeding (principal); I10 Essential (primary) hypertension; E11.9 Type 2 diabetes mellitus without complications; K21.9 Gastro-esophageal reflux disease without esophagitis; F03.90 Unspecified dementia, unspecified severity, without behavioral disturbance, psychotic disturbance, mood disturbance, and anxiety; F17.200 Nicotine dependence, unspecified, uncomplicated; F10.10 Alcohol abuse, uncomplicated; Z88.6 Allergy status to analgesic agent; Z87.442 Personal history of urinary calculi; Z95.5 Presence of coronary angioplasty implant and graft; Z79.82 Long term (current) use of aspirin; Z79.811 Long term (current) use of aromatase inhibitors; Z79.899 Other long term (current) drug therapy; Z79.01 Long term (current) use of anticoagulants

== ENCOUNTER → 2022-06-11 | Outpatient (REF) | payer OTHER ==
[~2022-06-11] MED LIST changes: +BACL10TA2; +CIPR-249 PO; +EZET10TA21; +GABA600T4; +LISI20TA33; +METR-265 PO; +MIRT-10; +NITR0.4S14; +VENL37.598
[2022-06-11 17:10] LABS: BASO % 0.4 % (0.0-1.0); EOS # 0.1 10^3/uL (0.0-0.5); EOS % 0.9 % (0.0-3.0); HEMATOCRIT 41.7 % (42.0-52.0); HEMOGLOBIN 13.4 g/dl (13.5-17.5); LYMPH # 1.9 10^3/uL (1.5-5.0); LYMPH % 27.5 % (24.0-44.0); MEAN CORPUSCULAR HEMOGLOBIN 30.6 pg (27.0-33.0); MEAN CORPUSCULAR HGB CONC 32.1 g/dl (32.0-36.5); MEAN CORPUSCULAR VOLUME 95.2 fl (80.0-96.0); MONO # 0.4 10^3/uL (0.0-0.8); MONO % 6.3 % (2.0-8.0); NEUTROPHILS # 4.4 10^3/uL (1.5-8.5); NEUTROPHILS % 64.6 % (36.0-66.0); PLATELET COUNT, AUTOMATED 368 10^3/uL (150-450); RED BLOOD COUNT 4.38 10^6/uL (4.30-6.10); WHITE BLOOD COUNT 6.8 10^3/uL (4.0-10.0)
[2022-06-11 17:52] LABS: HEMOGLOBIN A1c 5.7 % (4.0-6.0)
[2022-06-11 18:46] LABS: ALBUMIN 3.5 G/DL (3.2-5.2); ALKALINE PHOSPHATASE 90 U/L (46-116); ALT/SGPT 46 U/L (7.0-40); AST/SGOT 37 U/L (<34); BILIRUBIN,TOTAL 0.3 MG/DL (0.3-1.2); BLOOD UREA NITROGEN 18 MG/DL (9-23); CALCIUM LEVEL 9.3 MG/DL (8.3-10.6); CARBON DIOXIDE LEVEL 29 MMOL/L (20-31); CHLORIDE LEVEL 104 MMOL/L (98-107); CHOLESTEROL LEVEL 136 MG/DL (<200); GLUCOSE, FASTING 109 MG/DL (74-106); HDL CHOLESTEROL 58.9 MG/DL (>40); LDL CHOLESTEROL 46.3 MG/DL (<100); NON-HDL-C 77 MG/DL; POTASSIUM SERUM 4.7 MMOL/L (3.5-5.1); SODIUM LEVEL 139 MMOL/L (136-145); TOTAL 25(OH) VITAMIN D 21.5 NG/ML (20.0-100.0); TOTAL PROTEIN 6.6 G/DL (5.7-8.2); TRIGLYCERIDES LEVEL 154 MG/DL (<150)
[2022-06-11 20:07] LABS: CREATININE FOR GFR 0.77 MG/DL (0.70-1.30); GLOMERULAR FILTRATION RATE > 60.0 (>49)
== END ==
LOC: M LAB REF 16:31
PROVIDERS: ATTEND Nurse Practitioner Family
DX: I10 Essential (primary) hypertension (principal); R73.03 Prediabetes; E78.5 Hyperlipidemia, unspecified; E55.9 Vitamin D deficiency, unspecified

== ENCOUNTER 2022-06-26 21:55 | Emergency (ER) | payer OTHER ==
[~2022-06-26] VITALS: Ht 185.4 cm; Wt 113.6 kg
[2022-06-26 22:30] LABS: BASO % 0.5 % (0.0-1.0); EOS # 0.1 10^3/uL (0.0-0.5); EOS % 1.7 % (0.0-3.0); HEMATOCRIT 39.8 % (42.0-52.0); HEMOGLOBIN 13.3 g/dl (13.5-17.5); LYMPH # 3.5 10^3/uL (1.5-5.0); LYMPH % 55.1 % (24.0-44.0); MEAN CORPUSCULAR HEMOGLOBIN 30.9 pg (27.0-33.0); MEAN CORPUSCULAR HGB CONC 33.4 g/dl (32.0-36.5); MEAN CORPUSCULAR VOLUME 92.6 fl (80.0-96.0); MONO # 0.5 10^3/uL (0.0-0.8); MONO % 7.5 % (2.0-8.0); NEUTROPHILS # 2.2 10^3/uL (1.5-8.5); NEUTROPHILS % 34.9 % (36.0-66.0); PLATELET COUNT, AUTOMATED 234 10^3/uL (150-450); WHITE BLOOD COUNT 6.4 10^3/uL (4.0-10.0)
[2022-06-26 22:52] LABS: INR 1.01; PROTHROMBIN TIME 13.5 SECONDS (12.5-14.5)
[2022-06-26 22:53] LABS: PARTIAL THROMBOPLASTIN TIME 28.7 SECONDS (24.8-34.2)
[2022-06-26 22:54] LABS: BLOOD UREA NITROGEN 14 MG/DL (9-23); CALCIUM LEVEL 8.5 MG/DL (8.3-10.6); CARBON DIOXIDE LEVEL 21 MMOL/L (20-31); CHLORIDE LEVEL 103 MMOL/L (98-107); CK-MB VALUE MASS 2.8 NG/ML (<3.6); CREATININE FOR GFR 0.74 MG/DL (0.70-1.30); GLOMERULAR FILTRATION RATE > 60.0 (>49); GLUCOSE, FASTING 94 MG/DL (74-106); POTASSIUM SERUM 4.2 MMOL/L (3.5-5.1); SODIUM LEVEL 135 MMOL/L (136-145)
[2022-06-26 22:56] LABS: CPK CREATINE PHOSPHOKINASE 203 U/L (46-171); MB/CK RELATIVE INDEX 1.37 (< OR =4)
[2022-06-26 22:59] VITALS: BP 100/56
[2022-06-26] MEDS ORDERED: TETRACAINE 0.5% OPHTH SOLN 4ML OU ONE (23:20)
[2022-06-26 23:25] LABS: RSV AMPLIFICATION NEGATIVE (NEGATIVE)
[2022-06-26 23:45] VITALS: BP 116/66
== END 2022-06-27 00:34 | disposition home or self-care (01) ==
LOC: M ED 21:55
DX: R51.9 Headache, unspecified (principal); H57.11 Ocular pain, right eye; I25.10 Atherosclerotic heart disease of native coronary artery without angina pectoris; I10 Essential (primary) hypertension; E78.5 Hyperlipidemia, unspecified; F17.200 Nicotine dependence, unspecified, uncomplicated; Z88.8 Allergy status to other drugs, medicaments and biological substances; Z79.51 Long term (current) use of inhaled steroids; Z79.899 Other long term (current) drug therapy; Z79.82 Long term (current) use of aspirin

== ENCOUNTER 2022-08-24 17:34 | Emergency (ER) | payer OTHER ==
[~2022-08-24] VITALS: Ht 180.3 cm; Wt 117.7 kg
[2022-08-24 17:47] VITALS: BP 161/84
[2022-08-24] MEDS ORDERED: OMEP-173 PO (17:58)
[2022-08-24 19:34] LABS: BASO % 0.4 % (0.0-1.0); EOS % 0.7 % (0.0-3.0); HEMATOCRIT 39.5 % (42.0-52.0); HEMOGLOBIN 13.1 g/dl (13.5-17.5); LYMPH # 1.4 10^3/uL (1.5-5.0); LYMPH % 24.6 % (24.0-44.0); MEAN CORPUSCULAR HEMOGLOBIN 31.3 pg (27.0-33.0); MEAN CORPUSCULAR HGB CONC 33.2 g/dl (32.0-36.5); MEAN CORPUSCULAR VOLUME 94.5 fl (80.0-96.0); MONO # 0.8 10^3/uL (0.0-0.8); MONO % 13.9 % (2.0-8.0); NEUTROPHILS # 3.4 10^3/uL (1.5-8.5); PLATELET COUNT, AUTOMATED 217 10^3/uL (150-450); RED BLOOD COUNT 4.18 10^6/uL (4.30-6.10); WHITE BLOOD COUNT 5.7 10^3/uL (4.0-10.0)
[2022-08-24 20:02] LABS: LIPASE 265 U/L (12-53)
[2022-08-24 20:03] LABS: ETHYL ALCOHOL (ETHANOL) 0.064 % (0.000-0.010)
[2022-08-24 20:05] LABS: ALBUMIN 3.5 G/DL (3.2-5.2); ALKALINE PHOSPHATASE 65 U/L (46-116); ALT/SGPT 81 U/L (7.0-40); AST/SGOT 277 U/L (<34); BILIRUBIN,DIRECT 0.2 MG/DL (<0.4); BILIRUBIN,TOTAL 0.4 MG/DL (0.3-1.2); BLOOD UREA NITROGEN 16 MG/DL (9-23); CARBON DIOXIDE LEVEL 28 MMOL/L (20-31); CHLORIDE LEVEL 102 MMOL/L (98-107); CREATININE FOR GFR 0.84 MG/DL (0.70-1.30); GLOMERULAR FILTRATION RATE > 60.0 (>49); GLUCOSE, FASTING 100 MG/DL (74-106); MAGNESIUM LEVEL 1.3 MG/DL (1.8-2.4); POTASSIUM SERUM 4.3 MMOL/L (3.5-5.1); SODIUM LEVEL 135 MMOL/L (136-145); TOTAL PROTEIN 6.2 G/DL (5.7-8.2)
== END 2022-08-24 21:41 | disposition left against medical advice (07) ==
LOC: M ED 17:34
DX: M54.50 Low back pain, unspecified (principal); I25.2 Old myocardial infarction; I10 Essential (primary) hypertension; E78.5 Hyperlipidemia, unspecified; F14.10 Cocaine abuse, uncomplicated; F17.200 Nicotine dependence, unspecified, uncomplicated; Z87.442 Personal history of urinary calculi; Z88.6 Allergy status to analgesic agent; Z79.52 Long term (current) use of systemic steroids; Z79.899 Other long term (current) drug therapy; Z79.02 Long term (current) use of antithrombotics/antiplatelets; Z53.9 Procedure and treatment not carried out, unspecified reason

== ENCOUNTER 2022-12-22 22:44 | Emergency (ER) | payer OTHER ==
[~2022-12-22] VITALS: Ht 182.9 cm; Wt 100.0 kg
[~2022-12-22 22:44] MED LIST changes: -GABA-283 PO; +GABA-284 PO; -GABA600T4; +GABA600T4 PO; -LISI20TA33; -METO1TAB32; +OMEP-173 PO; -VENL37.598; +VENL37.598 PO
[2022-12-22 23:26] LABS: HEMATOCRIT 46.1 % (42.0-52.0); HEMOGLOBIN 14.9 g/dl (13.5-17.5); MEAN CORPUSCULAR HEMOGLOBIN 29.1 pg (27.0-33.0); MEAN CORPUSCULAR HGB CONC 32.3 g/dl (32.0-36.5); PLATELET COUNT, AUTOMATED 258 10^3/uL (150-450); RED BLOOD COUNT 5.12 10^6/uL (4.30-6.10); WHITE BLOOD COUNT 7.3 10^3/uL (4.0-10.0)
[2022-12-22 23:54] LABS: AMPHETAMINES LEVEL URINE NEGATIVE (NEGATIVE); BARBITURATES URINE NEGATIVE (NEGATIVE)
[2022-12-22 23:55] LABS: BENZODIAZEPINES URINE NEGATIVE (NEGATIVE); CANNABINOIDS URINE NEGATIVE (NEGATIVE); METHADONE URINE NEGATIVE (NEGATIVE); OPIATES URINE NEGATIVE (NEGATIVE); PHENCYCLIDINE URINE NEGATIVE (NEGATIVE)
[2022-12-22 23:57] LABS: COCAINE METABOLITE URINE POSITIVE (NEGATIVE); ETHYL ALCOHOL (ETHANOL) 0.238 % (0.000-0.010)
[2022-12-22 23:58] LABS: ACETAMINOPHEN LEVEL < 2.0 UG/ML (10.0-20.0); ALKALINE PHOSPHATASE 72 U/L (46-116); ALT/SGPT 34 U/L (7.0-40); AST/SGOT 21 U/L (<34); BILIRUBIN,DIRECT < 0.1 MG/DL (<0.4); BILIRUBIN,TOTAL 0.2 MG/DL (0.3-1.2); BLOOD UREA NITROGEN 17 MG/DL (9-23); CALCIUM LEVEL 8.6 MG/DL (8.3-10.6); CARBON DIOXIDE LEVEL 23 MMOL/L (20-31); CHLORIDE LEVEL 107 MMOL/L (98-107); CREATININE FOR GFR 0.99 MG/DL (0.70-1.30); GLOMERULAR FILTRATION RATE > 60.0 (>49); GLUCOSE, FASTING 90 MG/DL (74-106); POTASSIUM SERUM 4.3 MMOL/L (3.5-5.1); SALICYLATE LEVEL < 3.0 MG/DL (<30); SODIUM LEVEL 140 MMOL/L (136-145); TOTAL PROTEIN 6.8 G/DL (5.7-8.2)
[2022-12-23 00:01] LABS: THYROID STIMULATING HORMONE 0.985 uIU/ML (0.55-4.78)
[2022-12-23] MEDS ORDERED: LORazepam 2 MG/ML 1ML VIAL IM STA (00:58)
[2022-12-23] MEDS ORDERED: ROSU20TA61 PO (06:11)
[2022-12-23] MEDS ORDERED: ARIP1TAB4 PO (06:11)
[2022-12-23] MEDS ORDERED: TEMA30CA PO (06:11)
[2022-12-23] MEDS ORDERED: CLOP75TA2 PO (06:11)
[2022-12-23] MEDS ORDERED: HOME MED LIST COMPLETE! XX SCH (06:15)
[2022-12-23 12:10] VITALS: BP 158/87; TEMP 97.7; O2SAT 95
== END 2022-12-23 12:14 | disposition home or self-care (01) ==
LOC: M ED 22:44
DX: F43.0 Acute stress reaction (principal); F10.20 Alcohol dependence, uncomplicated; R45.851 Suicidal ideations; F32.A Depression, unspecified; I10 Essential (primary) hypertension; J44.9 Chronic obstructive pulmonary disease, unspecified; K21.9 Gastro-esophageal reflux disease without esophagitis; F41.9 Anxiety disorder, unspecified; F17.200 Nicotine dependence, unspecified, uncomplicated; F19.10 Other psychoactive substance abuse, uncomplicated; Z88.8 Allergy status to other drugs, medicaments and biological substances; Z79.83 Long term (current) use of bisphosphonates; Z79.811 Long term (current) use of aromatase inhibitors; Z79.899 Other long term (current) drug therapy
CPT/HCPCS: 80048; 80076; 80143; 80307; 82077; 84443; 85027; 87635; 96372; 99284; J2060

== ENCOUNTER → 2022-12-31 | Outpatient (CLI) | payer OTHER ==
[~2022-12-31] MED LIST changes: +ARIP1TAB4 PO; +ROSU20TA61 PO; +TEMA30CA PO
== END ==
LOC: M RAD 09:40
PROVIDERS: ATTEND Nurse Practitioner Family
DX: M13.862 Other specified arthritis, left knee (principal)

== ENCOUNTER → 2023-06-19 | Outpatient (CLI) | payer OTHER | LOC: M SOG 09:01 | PROVIDERS: ATTEND Physician Assistant | DX: M25.542 Pain in joints of left hand (principal) ==

== ENCOUNTER 2023-07-07 06:43 | Day surgery (SDC) | payer OTHER ==
[~2023-07-07] VITALS: Ht 180.3 cm; Wt 110.7 kg
[~2023-07-07 06:43] MED LIST changes: +ARIP1TAB6 PO; +BACL1TAB8 PO; +D32000CA PO; +NITR0.4S14 SL; +PANT20TA6 PO; +SODIUM BICARBONATE 8.4% INJ 50MEQ 50ML VIAL XX ONE
[2023-07-07] MEDS: BACITRACIN OINTMENT 30GM TUBE As Ordered ONE (09:20)
[2023-07-07] MEDS: LIDOCAINE W/EPINEPHRINE 1% 20ML VIAL XX ONE (09:20)
[2023-07-07 09:28] VITALS: BP 146/90; TEMP 97.3; O2SAT 98
== END 2023-07-07 09:45 | disposition home or self-care (01) ==
LOC: M SDC 06:43
PROVIDERS: ATTEND Orthopaedic Surgery Hand Surgery
DX: M72.0 Palmar fascial fibromatosis [Dupuytren] (principal); I10 Essential (primary) hypertension; K57.92 Diverticulitis of intestine, part unspecified, without perforation or abscess without bleeding; K21.9 Gastro-esophageal reflux disease without esophagitis; E78.5 Hyperlipidemia, unspecified; Z79.02 Long term (current) use of antithrombotics/antiplatelets; J44.9 Chronic obstructive pulmonary disease, unspecified; Z79.899 Other long term (current) drug therapy; F41.9 Anxiety disorder, unspecified; F32.A Depression, unspecified; F17.218 Nicotine dependence, cigarettes, with other nicotine-induced disorders; F12.10 Cannabis abuse, uncomplicated; N40.0 Benign prostatic hyperplasia without lower urinary tract symptoms; Z88.8 Allergy status to other drugs, medicaments and biological substances; Z98.61 Coronary angioplasty status

== ENCOUNTER 2023-07-23 10:13 | Emergency (ER) | payer OTHER ==
[~2023-07-23] VITALS: Ht 180.3 cm; Wt 109.1 kg
[~2023-07-23 10:13] MED LIST changes: -SODIUM BICARBONATE 8.4% INJ 50MEQ 50ML VIAL XX ONE
[2023-07-23 15:02] LABS: HEMATOCRIT 44.1 % (42.0-52.0); HEMOGLOBIN 14.2 g/dl (13.5-17.5); MEAN CORPUSCULAR HEMOGLOBIN 29.9 pg (27.0-33.0); MEAN CORPUSCULAR HGB CONC 32.2 g/dl (32.0-36.5); MEAN CORPUSCULAR VOLUME 92.8 fl (80.0-96.0); PLATELET COUNT, AUTOMATED 226 10^3/uL (150-450); RED BLOOD COUNT 4.75 10^6/uL (4.30-6.10); WHITE BLOOD COUNT 4.7 10^3/uL (4.0-10.0)
[2023-07-23 15:32] LABS: AMPHETAMINES LEVEL URINE NEGATIVE (NEGATIVE); BARBITURATES URINE NEGATIVE (NEGATIVE); BENZODIAZEPINES URINE NEGATIVE (NEGATIVE); METHADONE URINE NEGATIVE (NEGATIVE); OPIATES URINE NEGATIVE (NEGATIVE); PHENCYCLIDINE URINE NEGATIVE (NEGATIVE)
[2023-07-23 15:33] LABS: CANNABINOIDS URINE POSITIVE (NEGATIVE); COCAINE METABOLITE URINE POSITIVE (NEGATIVE)
[2023-07-23 15:35] LABS: ETHYL ALCOHOL (ETHANOL) 0.005 % (0.000-0.010)
[2023-07-23 15:37] LABS: ALBUMIN 3.2 G/DL (3.2-5.2); ALKALINE PHOSPHATASE 83 U/L (46-116); ALT/SGPT 19 U/L (7.0-40); AST/SGOT 24 U/L (<34); BILIRUBIN,DIRECT 0.1 MG/DL (<0.4); BILIRUBIN,TOTAL 0.3 MG/DL (0.3-1.2); BLOOD UREA NITROGEN 6 MG/DL (9-23); CALCIUM LEVEL 9.3 MG/DL (8.3-10.6); CARBON DIOXIDE LEVEL 31 MMOL/L (20-31); CHLORIDE LEVEL 107 MMOL/L (98-107); CREATININE FOR GFR 0.71 MG/DL (0.70-1.30); GLOMERULAR FILTRATION RATE > 60.0 (>49); GLUCOSE, FASTING 101 MG/DL (74-106); POTASSIUM SERUM 4.2 MMOL/L (3.5-5.1); SALICYLATE LEVEL < 3.0 MG/DL (<30); SODIUM LEVEL 141 MMOL/L (136-145); TOTAL PROTEIN 6.1 G/DL (5.7-8.2)
[2023-07-23 15:38] LABS: THYROID STIMULATING HORMONE 0.477 uIU/ML (0.55-4.78)
[2023-07-23 15:44] LABS: LIPASE 38 U/L (12-53)
[2023-07-23 16:26] VITALS: BP 142/72; TEMP 98.1; O2SAT 96
== END 2023-07-23 16:28 | disposition home or self-care (01) ==
LOC: M ED 14:54
DX: F19.239 Other psychoactive substance dependence with withdrawal, unspecified (principal); I25.2 Old myocardial infarction; I10 Essential (primary) hypertension; J44.9 Chronic obstructive pulmonary disease, unspecified; N40.0 Benign prostatic hyperplasia without lower urinary tract symptoms; F17.200 Nicotine dependence, unspecified, uncomplicated; Z90.49 Acquired absence of other specified parts of digestive tract; Z88.6 Allergy status to analgesic agent

== ENCOUNTER 2023-10-23 22:30 | Emergency (ER) | payer OTHER ==
[~2023-10-23] VITALS: Ht 180.3 cm; Wt 118.2 kg
[~2023-10-23 22:30] MED LIST changes: +BUPR-597 PO; -BUPR300T92 PO; +ONDA-282 PO; -ONDA4TAB6 PO
[2023-10-23 22:45] VITALS: BP 136/92; O2SAT 98
[2023-10-23 23:00] LABS: BASO % 0.5 % (0.0-1.0); EOS # 0.2 10^3/uL (0.0-0.5); EOS % 2.8 % (0.0-3.0); HEMATOCRIT 42.3 % (42.0-52.0); LYMPH # 2.9 10^3/uL (1.5-5.0); LYMPH % 47.5 % (24.0-44.0); MEAN CORPUSCULAR HEMOGLOBIN 29.8 pg (27.0-33.0); MEAN CORPUSCULAR HGB CONC 33.1 g/dl (32.0-36.5); MONO # 0.6 10^3/uL (0.0-0.8); MONO % 9.2 % (2.0-8.0); NEUTROPHILS # 2.4 10^3/uL (1.5-8.5); NEUTROPHILS % 39.8 % (36.0-66.0); PLATELET COUNT, AUTOMATED 286 10^3/uL (150-450); WHITE BLOOD COUNT 6.1 10^3/uL (4.0-10.0)
[2023-10-23 23:13] LABS: LIPASE 38 U/L (12-53)
[2023-10-23 23:14] LABS: INR 1.11; PARTIAL THROMBOPLASTIN TIME 31.7 SECONDS (24.8-34.2)
[2023-10-23 23:15] LABS: ALBUMIN 3.4 G/DL (3.2-5.2); ALKALINE PHOSPHATASE 95 U/L (46-116); ALT/SGPT 26 U/L (7.0-40); AST/SGOT 16 U/L (<34); BILIRUBIN,DIRECT 0.1 MG/DL (<0.4); BILIRUBIN,TOTAL 0.3 MG/DL (0.3-1.2); BLOOD UREA NITROGEN 8 MG/DL (9-23); CARBON DIOXIDE LEVEL 28 MMOL/L (20-31); CHLORIDE LEVEL 108 MMOL/L (98-107); CREATININE FOR GFR 0.82 MG/DL (0.70-1.30); GLOMERULAR FILTRATION RATE > 60.0 (>49); GLUCOSE, FASTING 87 MG/DL (74-106); POTASSIUM SERUM 4.2 MMOL/L (3.5-5.1); SODIUM LEVEL 142 MMOL/L (136-145); TOTAL PROTEIN 6.6 G/DL (5.7-8.2)
[2023-10-24 00:15] LABS: ETHYL ALCOHOL (ETHANOL) 0.201 % (0.000-0.010)
== END 2023-10-24 01:10 | disposition left against medical advice (07) ==
LOC: M ED 22:30
DX: Z53.21 Procedure and treatment not carried out due to patient leaving prior to being seen by health care provider (principal)

== ENCOUNTER → 2023-12-17 | Outpatient (CLI) | payer OTHER ==
[2023-12-17 09:39] LABS: BASO % 0.6 % (0.0-1.0); EOS # 0.1 10^3/uL (0.0-0.5); EOS % 1.7 % (0.0-3.0); HEMATOCRIT 47.2 % (42.0-52.0); HEMOGLOBIN 15.3 g/dl (13.5-17.5); LYMPH # 2.7 10^3/uL (1.5-5.0); LYMPH % 39.6 % (24.0-44.0); MEAN CORPUSCULAR HEMOGLOBIN 29.7 pg (27.0-33.0); MEAN CORPUSCULAR HGB CONC 32.4 g/dl (32.0-36.5); MEAN CORPUSCULAR VOLUME 91.5 fl (80.0-96.0); MONO # 0.6 10^3/uL (0.0-0.8); MONO % 8.4 % (2.0-8.0); NEUTROPHILS # 3.4 10^3/uL (1.5-8.5); NEUTROPHILS % 49.4 % (36.0-66.0); PLATELET COUNT, AUTOMATED 220 10^3/uL (150-450); RED BLOOD COUNT 5.16 10^6/uL (4.30-6.10); WHITE BLOOD COUNT 6.9 10^3/uL (4.0-10.0)
[2023-12-17 09:57] LABS: BLOOD UREA NITROGEN 15 MG/DL (9-23); CALCIUM LEVEL 9.2 MG/DL (8.3-10.6); CARBON DIOXIDE LEVEL 27 MMOL/L (20-31); CHLORIDE LEVEL 107 MMOL/L (98-107); CHOLESTEROL LEVEL 116 MG/DL (<200); CHOLESTEROL RISK RATIO 1.82 (<5); CREATININE FOR GFR 0.93 MG/DL (0.70-1.30); GLOMERULAR FILTRATION RATE > 60.0 (>49); GLUCOSE, FASTING 98 MG/DL (74-106); HDL CHOLESTEROL 63.4 MG/DL (>40); LDL CHOLESTEROL 32.8 MG/DL (<100); NON-HDL-C 52.6 MG/DL; POTASSIUM SERUM 4.2 MMOL/L (3.5-5.1); SODIUM LEVEL 140 MMOL/L (136-145); TRIGLYCERIDES LEVEL 99 MG/DL (<150)
[2023-12-17 09:59] LABS: THYROID STIMULATING HORMONE 1.793 uIU/ML (0.55-4.78)
== END ==
LOC: M RAD 08:40
PROVIDERS: ATTEND Nurse Practitioner Family
DX: Z01.818 Encounter for other preprocedural examination (principal); F17.200 Nicotine dependence, unspecified, uncomplicated; E66.9 Obesity, unspecified; R89.1 Abnormal level of hormones in specimens from other organs, systems and tissues

== ENCOUNTER → 2023-12-25 | Outpatient (REF) | payer OTHER ==
[~2023-12-25] MED LIST changes: +GABA-1490 PO; +GABA-1635 PO; -GABA600T4 PO; -GABA800T4 PO
[2023-12-25 15:08] LABS: MAGNESIUM LEVEL 1.7 MG/DL (1.8-2.4)
[2023-12-25 15:13] LABS: FOLATE 14.6 NG/ML (>5.4)
== END ==
LOC: M LAB REF 13:45
PROVIDERS: ATTEND Nurse Practitioner Family
DX: I49.3 Ventricular premature depolarization (principal)

== ENCOUNTER → 2024-02-12 | Outpatient (CLI) | payer OTHER ==
[~2024-02-12] MED LIST changes: -ROSU20TA61 PO; +ROSU20TA86 PO
[2024-02-12 11:05] LABS: BASO % 0.5 % (0.0-1.0); EOS # 0.1 10^3/uL (0.0-0.5); EOS % 2.1 % (0.0-3.0); HEMATOCRIT 41.7 % (42.0-52.0); HEMOGLOBIN 13.9 g/dl (13.5-17.5); LYMPH # 2.1 10^3/uL (1.5-5.0); LYMPH % 36.7 % (24.0-44.0); MEAN CORPUSCULAR HEMOGLOBIN 31.5 pg (27.0-33.0); MEAN CORPUSCULAR HGB CONC 33.3 g/dl (32.0-36.5); MEAN CORPUSCULAR VOLUME 94.6 fl (80.0-96.0); MONO # 0.5 10^3/uL (0.0-0.8); MONO % 8.5 % (2.0-8.0); NEUTROPHILS # 2.9 10^3/uL (1.5-8.5); NEUTROPHILS % 51.8 % (36.0-66.0); PLATELET COUNT, AUTOMATED 180 10^3/uL (150-450); RED BLOOD COUNT 4.41 10^6/uL (4.30-6.10); WHITE BLOOD COUNT 5.6 10^3/uL (4.0-10.0)
[2024-02-12 11:28] LABS: HEMOGLOBIN A1c 5.6 % (4.0-6.0)
[2024-02-12 11:30] LABS: BLOOD UREA NITROGEN 11 MG/DL (9-23); CALCIUM LEVEL 9.1 MG/DL (8.3-10.6); CARBON DIOXIDE LEVEL 29 MMOL/L (20-31); CHLORIDE LEVEL 108 MMOL/L (98-107); CREATININE FOR GFR 0.86 MG/DL (0.70-1.30); GLOMERULAR FILTRATION RATE > 60.0 (>49); GLUCOSE, FASTING 100 MG/DL (74-106); POTASSIUM SERUM 4.3 MMOL/L (3.5-5.1); SODIUM LEVEL 141 MMOL/L (136-145)
== END ==
LOC: M LAB 10:13
PROVIDERS: ATTEND Nurse Practitioner Family
DX: Z01.818 Encounter for other preprocedural examination (principal); E66.9 Obesity, unspecified

== ENCOUNTER → 2024-02-25 | Outpatient (CLI) | payer OTHER | LOC: M RAD 10:29 | PROVIDERS: ATTEND Physician Assistant | DX: J44.1 Chronic obstructive pulmonary disease with (acute) exacerbation (principal) ==

== ENCOUNTER 2024-03-20 00:50 | Emergency (ER) | payer OTHER ==
[~2024-03-20] VITALS: Ht 180.3 cm; Wt 115.9 kg
[2024-03-20 01:06] VITALS: TEMP 96.4
[2024-03-20] MEDS: PERCOCET 5MG/325MG TAB PO ONE (01:58)
[2024-03-20 02:09] LABS: APPEARANCE, URINE CLEAR (CLEAR); BACTERIA, URINE AUTO NEGATIVE (NEGATIVE); BILIRUBIN, URINE AUTO NEGATIVE (NEGATIVE); BLOOD, URINE BLOOD NEGATIVE (NEGATIVE); COLOR, URINE COLORLESS (YELLOW); GLUCOSE, URINE (UA) AUTO NEGATIVE (NEGATIVE); KETONE, URINE AUTO NEGATIVE (NEGATIVE); LEUKOCYTE ESTERASE, URINE AUTO NEGATIVE (NEGATIVE); NITRITE, URINE AUTO NEGATIVE (NEGATIVE); PROTEIN, URINE AUTO NEGATIVE (NEGATIVE); RBC, URINE AUTO 0 /HPF (0-3); SPECIFIC GRAVITY URINE AUTO 1.002 (1.002-1.035); SQUAMOUS EPITHELIAL CELL UR AU 0 /HPF (0-6); UROBILINOGEN, URINE AUTO 0.2 mg/dL (0.0-2.0); WBC, URINE AUTO 0 /HPF (0-3)
[2024-03-20 02:16] LABS: BASO % 0.6 % (0.0-1.0); EOS # 0.2 10^3/uL (0.0-0.5); EOS % 4.7 % (0.0-3.0); HEMATOCRIT 37.3 % (42.0-52.0); HEMOGLOBIN 12.3 g/dl (13.5-17.5); LYMPH # 2.8 10^3/uL (1.5-5.0); LYMPH % 53.6 % (24.0-44.0); MEAN CORPUSCULAR HEMOGLOBIN 32.3 pg (27.0-33.0); MEAN CORPUSCULAR VOLUME 97.9 fl (80.0-96.0); MONO # 0.5 10^3/uL (0.0-0.8); MONO % 9.7 % (2.0-8.0); NEUTROPHILS # 1.6 10^3/uL (1.5-8.5); NEUTROPHILS % 31.2 % (36.0-66.0); PLATELET COUNT, AUTOMATED 244 10^3/uL (150-450); RED BLOOD COUNT 3.81 10^6/uL (4.30-6.10); WHITE BLOOD COUNT 5.2 10^3/uL (4.0-10.0)
[2024-03-20 02:48] LABS: BLOOD UREA NITROGEN 9 MG/DL (9-23); CALCIUM LEVEL 8.4 MG/DL (8.3-10.6); CARBON DIOXIDE LEVEL 27 MMOL/L (20-31); CHLORIDE LEVEL 102 MMOL/L (98-107); CREATININE FOR GFR 0.71 MG/DL (0.70-1.30); GLOMERULAR FILTRATION RATE > 60.0 (>49); GLUCOSE, FASTING 93 MG/DL (74-106); MAGNESIUM LEVEL 1.8 MG/DL (1.8-2.4); POTASSIUM SERUM 4.9 MMOL/L (3.5-5.1); SODIUM LEVEL 135 MMOL/L (136-145)
[2024-03-20] MEDS ORDERED: ISOVUE-370 76% 100ML VIAL As Ordered ONE (02:56)
[2024-03-20 05:30] VITALS: BP 112/64; O2SAT 94
[2024-03-20] MEDS: GASTROGRAFIN SOLUTION 30ML PO SCH (06:07)
== END 2024-03-20 09:14 | disposition home or self-care (01) ==
LOC: M ED 00:50 → EDBD 00:50 → M ED 09:14
DX: G89.18 Other acute postprocedural pain (principal); R10.9 Unspecified abdominal pain; J98.11 Atelectasis; E55.9 Vitamin D deficiency, unspecified; J44.9 Chronic obstructive pulmonary disease, unspecified; F39 Unspecified mood [affective] disorder; Z87.442 Personal history of urinary calculi; Z88.8 Allergy status to other drugs, medicaments and biological substances; Z79.01 Long term (current) use of anticoagulants
CPT/HCPCS: 36415; 74176; 74177; 80048; 81001; 82570; 83605; 83735; 85025; 99284; Q9963; Q9967

== ENCOUNTER 2024-04-29 08:07 | Emergency (ER) | payer OTHER ==
[~2024-04-29] VITALS: Ht 180.3 cm; Wt 118.2 kg
[2024-04-29 08:52] LABS: VENOUS BASE EXCESS -1.4 (-2.0-2.0); VENOUS HCO3 23.3 MMOL/L (23.0-27.0); VENOUS PARTIAL PRESSURE CO2 39.4 mmHg (38.0-50.0); VENOUS PARTIAL PRESSURE O2 55.2 mmHg (30.0-50.0); VENOUS STANDARD HCO3 23.1 MMOL/L; VENOUS TOTAL CO2 24.5 MMOL/L (24.0-28.0)
[2024-04-29 09:01] VITALS: BP 130/82
[2024-04-29 09:01] LABS: BASO % 0.4 % (0.0-1.0); EOS % 0.4 % (0.0-3.0); HEMOGLOBIN 13.9 g/dl (13.5-17.5); LYMPH # 0.9 10^3/uL (1.5-5.0); LYMPH % 19.7 % (24.0-44.0); MEAN CORPUSCULAR HEMOGLOBIN 32.2 pg (27.0-33.0); MEAN CORPUSCULAR HGB CONC 33.9 g/dl (32.0-36.5); MEAN CORPUSCULAR VOLUME 94.9 fl (80.0-96.0); MONO # 0.4 10^3/uL (0.0-0.8); MONO % 9.2 % (2.0-8.0); NEUTROPHILS # 3.3 10^3/uL (1.5-8.5); NEUTROPHILS % 69.9 % (36.0-66.0); PLATELET COUNT, AUTOMATED 191 10^3/uL (150-450); RED BLOOD COUNT 4.32 10^6/uL (4.30-6.10); WHITE BLOOD COUNT 4.7 10^3/uL (4.0-10.0)
[2024-04-29] MEDS: NITROGLYCERIN 0.4MG SUBL TABLET SL PRN (09:01)
[2024-04-29 09:10] LABS: INR 0.96; PROTHROMBIN TIME 13.1 SECONDS (12.5-14.5)
[2024-04-29 09:22] LABS: CK-MB VALUE MASS 1.8 NG/ML (<3.6); LIPASE 52 U/L (12-53)
[2024-04-29 09:24] LABS: CPK CREATINE PHOSPHOKINASE 170 U/L (46-171); MB/CK RELATIVE INDEX 1.05 (< OR =4)
[2024-04-29 09:25] LABS: ALBUMIN 3.6 G/DL (3.2-5.2); ALKALINE PHOSPHATASE 75 U/L (40-129); ALT/SGPT 36 U/L (7.0-40); AST/SGOT 41 U/L (<34); BILIRUBIN,DIRECT 0.2 MG/DL (<0.4); BILIRUBIN,TOTAL 0.4 MG/DL (0.3-1.2); BLOOD UREA NITROGEN 10 MG/DL (9-23); CARBON DIOXIDE LEVEL 23 MMOL/L (20-31); CHLORIDE LEVEL 106 MMOL/L (98-107); CREATININE FOR GFR 0.84 MG/DL (0.70-1.30); GLOMERULAR FILTRATION RATE > 60.0 (>49); GLUCOSE, FASTING 105 MG/DL (74-106); POTASSIUM SERUM 4.2 MMOL/L (3.5-5.1); SODIUM LEVEL 137 MMOL/L (136-145); TOTAL PROTEIN 6.6 G/DL (5.7-8.2)
[2024-04-29 09:27] LABS: FREE T4 1.05 NG/DL (0.89-1.76); THYROID STIMULATING HORMONE 1.443 uIU/ML (0.55-4.78)
[2024-04-29] MEDS ORDERED: ISOVUE-370 76% 100ML VIAL As Ordered ONE (09:58)
[2024-04-29] MEDS ORDERED: OSEL75CA PO (10:21)
[2024-04-29 10:26] LABS: CPK CREATINE PHOSPHOKINASE 165 U/L (46-171)
[2024-04-29] MEDS: OSELTAMIVIR PHOSPHATE 75 MG CAP (TAMIFLU) PO ONE (10:26)
[2024-04-29 10:27] LABS: CK-MB VALUE MASS < 1.0 NG/ML (<3.6)
[2024-04-29] MEDS ORDERED: PRED20TA PO (10:51)
[2024-04-29 12:20] LABS: CK-MB VALUE MASS 1.1 NG/ML (<3.6)
[2024-04-29 12:21] LABS: MB/CK RELATIVE INDEX 0.62 (< OR =4)
[2024-04-29 13:02] VITALS: BP 134/86; TEMP 97.9; O2SAT 94
== END 2024-04-29 13:31 | disposition home or self-care (01) ==
LOC: M ED 08:07 → EDBD 08:07 → M ED 13:31
DX: R07.9 Chest pain, unspecified (principal); J09.X2 Influenza due to identified novel influenza A virus with other respiratory manifestations; J44.9 Chronic obstructive pulmonary disease, unspecified; R00.0 Tachycardia, unspecified; I25.2 Old myocardial infarction; I10 Essential (primary) hypertension; E78.5 Hyperlipidemia, unspecified; F17.200 Nicotine dependence, unspecified, uncomplicated; Z88.8 Allergy status to other drugs, medicaments and biological substances; Z79.52 Long term (current) use of systemic steroids; Z79.899 Other long term (current) drug therapy; Z90.49 Acquired absence of other specified parts of digestive tract
CPT/HCPCS: 36415; 71045; 71275; 80048; 80076; 82550; 82553; 82803; 83690; 83880; 84439; 84443; 84484; 85025; 85610; 87040; 87486; 87581; 87633; 87798; 93005; 93041; 94760; 99285; Q9967

== ENCOUNTER 2024-05-29 12:29 | Emergency (ER) | payer OTHER ==
[~2024-05-29] VITALS: Ht 180.3 cm; Wt 115.9 kg
[~2024-05-29 12:29] MED LIST changes: +CARI-555; +CARI-555 PO; -CARI1TAB7; -CARI1TAB7 PO; +OSEL75CA PO; +PRED20TA PO
[2024-05-29 12:51] VITALS: TEMP 96.5
[2024-05-29 13:11] LABS: BASO % 0.6 % (0.0-1.0); EOS # 0.1 10^3/uL (0.0-0.5); EOS % 1.7 % (0.0-3.0); HEMATOCRIT 42.9 % (42.0-52.0); HEMOGLOBIN 14.5 g/dl (13.5-17.5); LYMPH # 2.1 10^3/uL (1.5-5.0); LYMPH % 59.6 % (24.0-44.0); MEAN CORPUSCULAR HEMOGLOBIN 32.4 pg (27.0-33.0); MEAN CORPUSCULAR HGB CONC 33.8 g/dl (32.0-36.5); MONO # 0.3 10^3/uL (0.0-0.8); MONO % 8.2 % (2.0-8.0); NEUTROPHILS # 1.1 10^3/uL (1.5-8.5); NEUTROPHILS % 29.6 % (36.0-66.0); PLATELET COUNT, AUTOMATED 200 10^3/uL (150-450); RED BLOOD COUNT 4.47 10^6/uL (4.30-6.10); WHITE BLOOD COUNT 3.5 10^3/uL (4.0-10.0)
[2024-05-29] MEDS: TAMSULOSIN 0.4 MG CAP PO ONE (13:12)
[2024-05-29 13:23] LABS: INR 1.02; PROTHROMBIN TIME 13.7 SECONDS (12.5-14.5)
[2024-05-29 13:29] VITALS: O2SAT 98
[2024-05-29 13:31] VITALS: BP 182/96
[2024-05-29 13:40] LABS: ALBUMIN 3.4 G/DL (3.2-5.2); BILIRUBIN,DIRECT 0.2 MG/DL (<0.4); BILIRUBIN,TOTAL 0.4 MG/DL (0.3-1.2); TOTAL PROTEIN 6.4 G/DL (5.7-8.2)
[2024-05-29] MEDS: LIDOCAINE 2% 5ML JELLY UROJET TOP ONE (13:40)
[2024-05-29 14:23] LABS: KETONE, URINE AUTO RFX NEGATIVE (NEGATIVE); LEUKOCYTE ESTERASE UR AUTO RFX NEGATIVE (NEGATIVE); MUCUS, URINE RFX SMALL (NEGATIVE); NITRITE, URINE AUTO RFX NEGATIVE (NEGATIVE); RBC, URINE AUTO RFX 1 /HPF (0-3); SQUAM EPITHELIAL CELL UR AURFX 0 /HPF (0-6); WBC, URINE AUTO RFX 2 /HPF (0-3)
[2024-05-29] MEDS ORDERED: HYDR-3713 PO (14:30)
[2024-05-29] MEDS ORDERED: CIPR-249 PO (14:30)
[2024-05-29] MEDS ORDERED: FLOM0.4C39 PO (14:30)
[2024-05-29] MEDS: NORCO, ANEXSIA 5/325MG TABLET (HYDROcodone/ACETAMINOPHEN) PO ONE (15:01)
== END 2024-05-29 15:54 | disposition home or self-care (01) ==
LOC: EDBD 12:29 → M ED 12:29
DX: N41.0 Acute prostatitis (principal); R10.9 Unspecified abdominal pain; I10 Essential (primary) hypertension; E11.9 Type 2 diabetes mellitus without complications; I70.8 Atherosclerosis of other arteries; Z87.442 Personal history of urinary calculi; Z88.8 Allergy status to other drugs, medicaments and biological substances; Z79.52 Long term (current) use of systemic steroids; Z79.2 Long term (current) use of antibiotics; Z79.1 Long term (current) use of non-steroidal anti-inflammatories (NSAID); Z79.899 Other long term (current) drug therapy

== ENCOUNTER 2024-11-04 22:43 | Emergency (ER) | payer OTHER ==
[~2024-11-04] VITALS: Ht 180.3 cm; Wt 118.2 kg
[~2024-11-04 22:43] MED LIST changes: -AMBI10TA PO; +AMOX875T PO; -BUPR-597 PO; +BUPR-766 PO; +CETI-24 PO; -FLOM0.4C39 PO; -IBUP-1022 PO; +IBUP600T42 PO; +LIDO1ADH93 TD; -LIDO5DIS41 TD; +LISI40TA10 PO; -LISI40TA4 PO; +TAMS-18 PO; +ZOLP-533 PO
[2024-11-04 23:03] VITALS: BP 155/82; TEMP 98.6; O2SAT 97
[2024-11-04 23:51] LABS: BARBITURATES URINE NEGATIVE (NEGATIVE)
[2024-11-04 23:52] LABS: BENZODIAZEPINES URINE NEGATIVE (NEGATIVE); CANNABINOIDS URINE NEGATIVE (NEGATIVE); METHADONE URINE NEGATIVE (NEGATIVE); OPIATES URINE NEGATIVE (NEGATIVE); PHENCYCLIDINE URINE NEGATIVE (NEGATIVE)
[2024-11-04 23:54] LABS: ETHYL ALCOHOL (ETHANOL) < 0.003 % (0.000-0.010)
[2024-11-04 23:55] LABS: SALICYLATE LEVEL < 3.0 MG/DL (<30)
[2024-11-04 23:56] LABS: ALT/SGPT 20 U/L (7.0-40); AST/SGOT 21 U/L (<34); CALCIUM LEVEL 8.5 MG/DL (8.3-10.6); CARBON DIOXIDE LEVEL 26 MMOL/L (20-31); CHLORIDE LEVEL 109 MMOL/L (98-107); CREATININE FOR GFR 0.80 MG/DL (0.70-1.30); GLOMERULAR FILTRATION RATE > 90.0 (>49); POTASSIUM SERUM 3.8 MMOL/L (3.5-5.1); SODIUM LEVEL 147 MMOL/L (136-145)
[2024-11-04 23:58] LABS: AMPHETAMINES LEVEL URINE POSITIVE (NEGATIVE); COCAINE METABOLITE URINE POSITIVE (NEGATIVE)
[2024-11-05 00:24] LABS: PLATELET COUNT, AUTOMATED 258 10^3/uL (150-450)
[2024-11-05] MEDS: LORazepam 1 MG TAB PO STA (00:53)
== END 2024-11-05 01:03 | disposition home or self-care (01) ==
LOC: M ED 22:43
DX: F51.01 Primary insomnia (principal); F19.10 Other psychoactive substance abuse, uncomplicated; I10 Essential (primary) hypertension; E78.5 Hyperlipidemia, unspecified; K21.9 Gastro-esophageal reflux disease without esophagitis; K57.30 Diverticulosis of large intestine without perforation or abscess without bleeding; N40.0 Benign prostatic hyperplasia without lower urinary tract symptoms; Z79.1 Long term (current) use of non-steroidal anti-inflammatories (NSAID); Z79.2 Long term (current) use of antibiotics; Z79.52 Long term (current) use of systemic steroids; Z79.899 Other long term (current) drug therapy; Z88.8 Allergy status to other drugs, medicaments and biological substances; Z87.442 Personal history of urinary calculi

== ENCOUNTER 2024-11-12 22:33 | Emergency (ER) | payer OTHER ==
[~2024-11-12] VITALS: Ht 180.3 cm; Wt 122.8 kg
[~2024-11-12 22:33] MED LIST changes: +IBUP-1022 PO; -IBUP600T42 PO
[2024-11-12] MEDS ORDERED: VENL75CA47 PO (22:48)
[2024-11-12] MEDS ORDERED: HYDR-3363 PO (22:48)
[2024-11-12] MEDS ORDERED: BACL10TA2 PO (22:48)
[2024-11-12] MEDS ORDERED: GABA-284 PO (22:48)
[2024-11-13 01:24] LABS: BASO # 0.0 10^3/uL (0.0-0.2); BASO % 0.5 % (0.0-1.0); EOS # 0.1 10^3/uL (0.0-0.5); EOS % 2.1 % (0.0-3.0); LYMPH # 3.1 10^3/uL (1.5-5.0); LYMPH % 50.2 % (24.0-44.0); MONO # 0.6 10^3/uL (0.0-0.8); MONO % 10.0 % (2.0-8.0); NEUTROPHILS # 2.3 10^3/uL (1.5-8.5); NEUTROPHILS % 37.0 % (36.0-66.0); PLATELET COUNT, AUTOMATED 259 10^3/uL (150-450)
[2024-11-13 01:46] LABS: ALT/SGPT 26 U/L (7.0-40); AST/SGOT 26 U/L (<34); CALCIUM LEVEL 8.5 MG/DL (8.3-10.6); CARBON DIOXIDE LEVEL 28 MMOL/L (20-31); CHLORIDE LEVEL 109 MMOL/L (98-107); CREATININE FOR GFR 0.80 MG/DL (0.70-1.30); GLOMERULAR FILTRATION RATE > 90.0 (>49); POTASSIUM SERUM 4.4 MMOL/L (3.5-5.1); SODIUM LEVEL 145 MMOL/L (136-145)
[2024-11-13] MEDS ORDERED: ISOVUE-370 76% 100 ML VIAL As Ordered ONE (06:34)
[2024-11-13] MEDS: ACETAMINOPHEN *IV* 1,000 MG in IV 1 EA IV ONE (06:43)
[2024-11-13 09:01] VITALS: BP 144/82; O2SAT 96
[2024-11-13 09:02] VITALS: TEMP 96.1
== END 2024-11-13 09:28 | disposition home or self-care (01) ==
LOC: EDBD 22:33 → M ED 22:33
DX: R10.32 Left lower quadrant pain (principal); K59.00 Constipation, unspecified; K57.30 Diverticulosis of large intestine without perforation or abscess without bleeding; K40.20 Bilateral inguinal hernia, without obstruction or gangrene, not specified as recurrent; K76.0 Fatty (change of) liver, not elsewhere classified; M54.50 Low back pain, unspecified; F17.200 Nicotine dependence, unspecified, uncomplicated; F19.10 Other psychoactive substance abuse, uncomplicated; Z88.8 Allergy status to other drugs, medicaments and biological substances; Z79.899 Other long term (current) drug therapy
CPT/HCPCS: 74177; 80048; 80076; 83605; 83690; 85025; 96365; 99284; J0131; Q9967

== ENCOUNTER 2024-11-14 10:23 | Emergency (ER) | payer OTHER ==
[~2024-11-14] VITALS: Ht 180.3 cm; Wt 121.5 kg
[~2024-11-14 10:23] MED LIST changes: +BACL10TA2 PO; +HYDR-3363 PO; +VENL75CA47 PO
[2024-11-14 11:56] LABS: PLATELET COUNT, AUTOMATED 290 10^3/uL (150-450)
[2024-11-14 12:15] LABS: AMPHETAMINES LEVEL URINE NEGATIVE (NEGATIVE)
[2024-11-14 12:16] LABS: BARBITURATES URINE NEGATIVE (NEGATIVE); BENZODIAZEPINES URINE NEGATIVE (NEGATIVE); CANNABINOIDS URINE NEGATIVE (NEGATIVE); METHADONE URINE NEGATIVE (NEGATIVE); OPIATES URINE NEGATIVE (NEGATIVE); PHENCYCLIDINE URINE NEGATIVE (NEGATIVE)
[2024-11-14 12:17] LABS: COCAINE METABOLITE URINE POSITIVE (NEGATIVE); ETHYL ALCOHOL (ETHANOL) < 0.003 % (0.000-0.010)
[2024-11-14 12:19] LABS: SALICYLATE LEVEL < 3.0 MG/DL (<30)
[2024-11-14 12:27] LABS: ALT/SGPT 24 U/L (7.0-40); AST/SGOT 21 U/L (<34); CALCIUM LEVEL 9.8 MG/DL (8.3-10.6); CARBON DIOXIDE LEVEL 29 MMOL/L (20-31); CHLORIDE LEVEL 107 MMOL/L (98-107); CREATININE FOR GFR 0.84 MG/DL (0.70-1.30); GLOMERULAR FILTRATION RATE > 90.0 (>49); POTASSIUM SERUM 5.1 MMOL/L (3.5-5.1); SODIUM LEVEL 147 MMOL/L (136-145)
[2024-11-14 14:41] VITALS: BP 149/86; TEMP 98; O2SAT 97
== END 2024-11-14 14:47 | disposition home or self-care (01) ==
LOC: M ED 10:23
DX: F14.10 Cocaine abuse, uncomplicated (principal); F41.9 Anxiety disorder, unspecified; I10 Essential (primary) hypertension; Z88.1 Allergy status to other antibiotic agents; Z79.899 Other long term (current) drug therapy

== ENCOUNTER 2025-01-18 10:56 | Observation (INO) | payer OTHER ==
[~2025-01-18] VITALS: Ht 180.3 cm; Wt 120.3 kg
[~2025-01-18 10:56] MED LIST changes: -EZET10TA21; +EZET10TA57; -IBUP-1022 PO; +IBUP600T42 PO; +ZOLP10TA11 PO; -ZOLP10TA2 PO; -ZOLP5TAB PO; +ZOLP5TAB9 PO
[2025-01-18 11:53] LABS: BASO # 0.0 10^3/uL (0.0-0.2); BASO % 0.4 % (0.0-1.0); EOS # 0.1 10^3/uL (0.0-0.5); EOS % 0.4 % (0.0-3.0); LYMPH # 1.8 10^3/uL (1.5-5.0); LYMPH % 16.4 % (24.0-44.0); MONO # 0.7 10^3/uL (0.0-0.8); MONO % 6.3 % (2.0-8.0); NEUTROPHILS # 8.5 10^3/uL (1.5-8.5); NEUTROPHILS % 76.2 % (36.0-66.0); PLATELET COUNT, AUTOMATED 199 10^3/uL (150-450)
[2025-01-18 12:06] LABS: KETONE, URINE AUTO RFX 1+ mg/dL (NEGATIVE); MUCUS, URINE RFX LARGE (NEGATIVE); NITRITE, URINE AUTO RFX NEGATIVE (NEGATIVE); RBC, URINE AUTO RFX 5 /HPF (0-3); SQUAM EPITHELIAL CELL UR AURFX 0 /HPF (0-6)
[2025-01-18 12:08] LABS: LEUKOCYTE ESTERASE UR AUTO RFX TRACE (NEGATIVE); WBC, URINE AUTO RFX 11 /HPF (0-3)
[2025-01-18] MEDS: ONDANSETRON 4MG 2ML VIAL IV ONE (12:11)
[2025-01-18] MEDS: NS (Normal Saline) 0.9% 1,000 ML IV ONE (12:12)
[2025-01-18] MEDS: MORPHINE 4 MG/ML 1 ML VIAL IV ONE ×2 (12:12→13:40)
[2025-01-18 12:17] LABS: ALT/SGPT 75.0 U/L (7.0-40); AST/SGOT 65.0 U/L (<34)
[2025-01-18] MEDS ORDERED: ISOVUE-370 76% 100 ML VIAL As Ordered ONE (12:34)
[2025-01-18] MEDS: ACETAMINOPHEN *IV* 1,000 MG in IV 1 EA IV ONE (13:06)
[2025-01-18] MEDS: LR 1,000 ML IV ONE (13:50)
[2025-01-18] MEDS ORDERED: LOPERAMIDE 2 MG CAPLET PO PRN (13:55)
[2025-01-18] MEDS ORDERED: HYDROMORPHONE HCL 0.5 MG/0.5 ML SYRINGE IV PRN (14:10)
[2025-01-18] MEDS ORDERED: NALOXONE INJ 0.4 MG/1 ML VIAL IV PRN (14:10)
[2025-01-18] MEDS ORDERED: HOME MED LIST COMPLETE! XX SCH (14:15)
[2025-01-18] MEDS ORDERED: ZYRT10TA12 PO (14:15)
[2025-01-18] MEDS ORDERED: NICOTINE POLACRILEX 2 MG GUM PO PRN (14:45)
[2025-01-18] MEDS: ENOXAPARIN 40 MG/0.4 ML SYRINGE (J1650 PER 10MG) SC ONE (14:47)
[2025-01-18] MEDS: ONDANSETRON 4MG 2ML VIAL IV SCH (14:47)
[2025-01-18] MEDS: PIPERACILLIN/TAZOBACTAM SOD 4.5 GM in DEXTROSE 5% (D5W) ADV/MINI-BAG 50 ML IV SCH (14:48)
[2025-01-18] MEDS: CLOPIDOGREL 75 MG TAB PO SCH (14:48)
[2025-01-18] MEDS: CETIRIZINE 10 MG TAB PO SCH (14:48)
[2025-01-18] MEDS: VENLAFAXINE **XR** 75MG CAPSULE PO SCH (14:48)
[2025-01-18] MEDS: PERCOCET 5MG/325MG TAB PO ONE (14:49)
[2025-01-18] MEDS: THIAMINE 100 MG TAB PO SCH (15:03)
[2025-01-18] MEDS: MULTIVITAMINS/MINERALS THERAP 1 TAB PO SCH (15:04)
[2025-01-18] MEDS: FOLIC ACID 1 MG TAB PO SCH (15:04)
[2025-01-18] MEDS: NS (Normal Saline) 0.9% 1,000 ML IV SCH (15:06)
[2025-01-18] MEDS: BACLOFEN 10 MG TAB PO SCH (15:31)
[2025-01-18] MEDS: GABAPENTIN 400 MG CAP PO SCH (15:31)
[2025-01-18 15:56] LABS: AMPHETAMINES LEVEL URINE NEGATIVE (NEGATIVE); BARBITURATES URINE NEGATIVE (NEGATIVE); BENZODIAZEPINES URINE NEGATIVE (NEGATIVE); COCAINE METABOLITE URINE NEGATIVE (NEGATIVE); METHADONE URINE NEGATIVE (NEGATIVE); OPIATES URINE NEGATIVE (NEGATIVE); PHENCYCLIDINE URINE NEGATIVE (NEGATIVE)
[2025-01-18 15:57] LABS: CANNABINOIDS URINE POSITIVE (NEGATIVE)
[2025-01-18 16:00] VITALS: BP 133/85; TEMP 98.4; O2SAT 98
[2025-01-18] MEDS ORDERED: PERCOCET 5MG/325MG TAB PO PRN (18:00)
[2025-01-18] MEDS: PERCOCET 5MG/325MG TAB PO PRN (19:24)
[2025-01-18 20:00] VITALS: BP 137/76; TEMP 97.9
[2025-01-18] MEDS: TEMAZEPAM 7.5 MG CAP PO SCH (20:18)
[2025-01-18] MEDS: ROSUVASTATIN 10 MG TAB PO SCH (20:19)
[2025-01-18] MEDS: NICOTINE 21 MG/24 HR 1 EA TRANSDERMAL TD SCH (20:35)
[2025-01-18 22:00] VITALS: BP 137/76
[2025-01-19 04:51] VITALS: BP 106/56; TEMP 97.7; O2SAT 93
[2025-01-19 06:00] VITALS: BP 106/56
[2025-01-19 08:03] LABS: BASO # 0.0 10^3/uL (0.0-0.2); BASO % 0.3 % (0.0-1.0); EOS # 0.1 10^3/uL (0.0-0.5); EOS % 0.9 % (0.0-3.0); LYMPH # 1.5 10^3/uL (1.5-5.0); LYMPH % 23.5 % (24.0-44.0); MONO # 0.5 10^3/uL (0.0-0.8); MONO % 7.3 % (2.0-8.0); NEUTROPHILS # 4.3 10^3/uL (1.5-8.5); NEUTROPHILS % 67.5 % (36.0-66.0); PLATELET COUNT, AUTOMATED 159 10^3/uL (150-450)
[2025-01-19] MEDS: ENOXAPARIN 40 MG/0.4 ML SYRINGE (J1650 PER 10MG) SC SCH (08:28)
[2025-01-19 08:49] LABS: CALCIUM LEVEL 7.8 MG/DL (8.3-10.6); CARBON DIOXIDE LEVEL 30 MMOL/L (20-31); CHLORIDE LEVEL 105 MMOL/L (98-107); CREATININE FOR GFR 0.91 MG/DL (0.70-1.30); GLOMERULAR FILTRATION RATE > 90.0 (>49); POTASSIUM SERUM 3.8 MMOL/L (3.5-5.1); SODIUM LEVEL 136 MMOL/L (136-145)
[2025-01-19] MEDS: FLUZONE VACCINE TRI PF(25-26) 0.5ML SYRINGE IM.IMMUN ONE (10:42)
[2025-01-19 11:48] VITALS: BP 131/81; TEMP 99.1; O2SAT 95
[2025-01-19 11:49] VITALS: BP 131/81
[2025-01-19] MEDS ORDERED: OXYC1TAB23 PO (13:30)
[2025-01-19] MEDS ORDERED: BACI1CAP PO (13:30)
[2025-01-19] MEDS ORDERED: LOMO2.5T PO (13:30)
[2025-01-19] MEDS ORDERED: AMOX875T2 PO (13:30)
== END 2025-01-19 14:39 | disposition home or self-care (01) ==
LOC: M ED 10:56 → INTOOBSV 13:46 → M ED INP 13:46 → M MS4PR 15:54
PROVIDERS: ADMIT General Practice; ATTEND General Practice
DX: K57.92 Diverticulitis of intestine, part unspecified, without perforation or abscess without bleeding (principal); A08.11 Acute gastroenteropathy due to Norwalk agent; F19.20 Other psychoactive substance dependence, uncomplicated; F10.10 Alcohol abuse, uncomplicated; F17.210 Nicotine dependence, cigarettes, uncomplicated; I25.10 Atherosclerotic heart disease of native coronary artery without angina pectoris; Z98.61 Coronary angioplasty status; I10 Essential (primary) hypertension; E78.5 Hyperlipidemia, unspecified; J44.9 Chronic obstructive pulmonary disease, unspecified; F41.9 Anxiety disorder, unspecified; F32.A Depression, unspecified; F39 Unspecified mood [affective] disorder; F60.9 Personality disorder, unspecified; N40.0 Benign prostatic hyperplasia without lower urinary tract symptoms; N20.0 Calculus of kidney; M54.50 Low back pain, unspecified; Z79.2 Long term (current) use of antibiotics; Z79.899 Other long term (current) drug therapy; Z23 Encounter for immunization
CPT/HCPCS: 36415; 74177; 80047; 80048; 80076; 80307; 81001; 83605; 83690; 85025; 87086; 87507; 90656; 96365; 96366; 96372; 96375; 96376; 99284; G0008; J0131; J1650; J2405; J2543; Q9967

== ENCOUNTER 2025-01-25 16:29 | Emergency (ER) | payer OTHER ==
[~2025-01-25] VITALS: Ht 180.3 cm; Wt 118.2 kg
[~2025-01-25 16:29] MED LIST changes: +BACI1CAP PO; +OXYC1TAB23 PO; +ZYRT10TA12 PO
[2025-01-25] MEDS: ONDANSETRON 4MG 2ML VIAL IV ONE (17:12)
[2025-01-25] MEDS: MORPHINE 2 MG/ML 1 ML VIAL IV ONE (17:12)
[2025-01-25 17:20] LABS: BASO # 0.0 10^3/uL (0.0-0.2); BASO % 0.4 % (0.0-1.0); EOS # 0.0 10^3/uL (0.0-0.5); EOS % 0.2 % (0.0-3.0); LYMPH # 0.7 10^3/uL (1.5-5.0); LYMPH % 14.9 % (24.0-44.0); MONO # 0.1 10^3/uL (0.0-0.8); MONO % 2.8 % (2.0-8.0); NEUTROPHILS # 3.8 10^3/uL (1.5-8.5); NEUTROPHILS % 81.5 % (36.0-66.0); PLATELET COUNT, AUTOMATED 248 10^3/uL (150-450)
[2025-01-25 17:31] LABS: ALT/SGPT 202 U/L (7.0-40); AST/SGOT 149 U/L (<34); CALCIUM LEVEL 8.8 MG/DL (8.3-10.6); CARBON DIOXIDE LEVEL 28 MMOL/L (20-31); CHLORIDE LEVEL 106 MMOL/L (98-107); CREATININE FOR GFR 0.77 MG/DL (0.70-1.30); GLOMERULAR FILTRATION RATE > 90.0 (>49); POTASSIUM SERUM 4.5 MMOL/L (3.5-5.1); SODIUM LEVEL 143 MMOL/L (136-145)
[2025-01-25] MEDS ORDERED: ISOVUE-370 76% 100 ML VIAL As Ordered ONE (18:00)
[2025-01-25 20:04] VITALS: BP 164/97; TEMP 97.5; O2SAT 95
== END 2025-01-25 20:09 | disposition home or self-care (01) ==
LOC: M ED 16:29 → EDBD 16:29 → M ED 20:09
DX: R10.9 Unspecified abdominal pain (principal); R74.01 Elevation of levels of liver transaminase levels; K76.0 Fatty (change of) liver, not elsewhere classified; K57.30 Diverticulosis of large intestine without perforation or abscess without bleeding; J44.9 Chronic obstructive pulmonary disease, unspecified; N40.0 Benign prostatic hyperplasia without lower urinary tract symptoms; I10 Essential (primary) hypertension; F41.9 Anxiety disorder, unspecified; E78.5 Hyperlipidemia, unspecified; K21.9 Gastro-esophageal reflux disease without esophagitis; Z88.8 Allergy status to other drugs, medicaments and biological substances; Z79.2 Long term (current) use of antibiotics; Z79.899 Other long term (current) drug therapy; Z87.442 Personal history of urinary calculi
CPT/HCPCS: 74177; 80048; 80076; 83605; 83690; 85025; 96374; 99284; J2405; Q9967

== ENCOUNTER 2025-02-07 08:50 | Inpatient (IN) | payer OTHER ==
[~2025-02-07] VITALS: Ht 180.3 cm; Wt 120.5 kg
[2025-02-07 10:08] LABS: BASO # 0.0 10^3/uL (0.0-0.2); BASO % 0.4 % (0.0-1.0); EOS # 0.0 10^3/uL (0.0-0.5); EOS % 0.4 % (0.0-3.0); LYMPH # 2.2 10^3/uL (1.5-5.0); LYMPH % 25.2 % (24.0-44.0); MONO # 0.7 10^3/uL (0.0-0.8); MONO % 8.3 % (2.0-8.0); NEUTROPHILS # 5.6 10^3/uL (1.5-8.5); NEUTROPHILS % 65.5 % (36.0-66.0); PLATELET COUNT, AUTOMATED 219 10^3/uL (150-450)
[2025-02-07 10:21] LABS: INR 0.96
[2025-02-07 10:28] LABS: ALT/SGPT 62 U/L (7.0-40); AST/SGOT 50 U/L (<34); CALCIUM LEVEL 9.0 MG/DL (8.3-10.6); CARBON DIOXIDE LEVEL 28 MMOL/L (20-31); CHLORIDE LEVEL 105 MMOL/L (98-107); CREATININE FOR GFR 0.85 MG/DL (0.70-1.30); GLOMERULAR FILTRATION RATE > 90.0 (>49); POTASSIUM SERUM 4.4 MMOL/L (3.5-5.1); SODIUM LEVEL 141 MMOL/L (136-145)
[2025-02-07] MEDS ORDERED: ISOVUE-370 76% 100 ML VIAL As Ordered ONE (10:55)
[2025-02-07] MEDS: ACETAMINOPHEN *IV* 1,000 MG in IV 1 EA IV ONE (11:27)
[2025-02-07] MEDS: ONDANSETRON 4MG 2ML VIAL IV ONE (11:28)
[2025-02-07] MEDS: NS 0.9% IV ONE (11:28)
[2025-02-07] MEDS: [UNRECOGNIZED DRUG - OTHER] IV ONE (11:28)
[2025-02-07 13:02] LABS: KETONE, URINE AUTO RFX NEGATIVE (NEGATIVE); LEUKOCYTE ESTERASE UR AUTO RFX NEGATIVE (NEGATIVE); NITRITE, URINE AUTO RFX NEGATIVE (NEGATIVE); RBC, URINE AUTO RFX 1 /HPF (0-3); SQUAM EPITHELIAL CELL UR AURFX 0 /HPF (0-6); WBC, URINE AUTO RFX 1 /HPF (0-3)
[2025-02-07] MEDS: MORPHINE 4 MG/ML 1 ML VIAL IV ONE (13:20)
[2025-02-07 13:25] LABS: ETHYL ALCOHOL (ETHANOL) < 0.003 % (0.000-0.010)
[2025-02-07] MEDS ORDERED: FOLI1TAB11 PO (14:00)
[2025-02-07] MEDS ORDERED: BACI1CAP PO (14:00)
[2025-02-07] MEDS ORDERED: FLUT1BLS16 INH (14:00)
[2025-02-07] MEDS ORDERED: HOME MED LIST COMPLETE! XX SCH (14:05)
[2025-02-07] MEDS ORDERED: ACETAMINOPHEN 325 MG TAB PO PRN (14:20)
[2025-02-07] MEDS ORDERED: ONDANSETRON 4MG 2ML VIAL IV PRN (14:20)
[2025-02-07] MEDS: FOLIC ACID 1 MG TAB PO SCH (15:39)
[2025-02-07] MEDS: GABAPENTIN 400 MG CAP PO SCH (15:39)
[2025-02-07] MEDS: VENLAFAXINE **XR** 75MG CAPSULE PO SCH (15:39)
[2025-02-07] MEDS: CLOPIDOGREL 75 MG TAB PO SCH (15:39)
[2025-02-07] MEDS: PANTOPRAZOLE 40MG VIAL IV SCH (15:40)
[2025-02-07] MEDS: BACLOFEN 10 MG TAB PO SCH (15:40)
[2025-02-07] MEDS: PIPERACILLIN/TAZOBACTAM SOD 3.375 GM in DEXTROSE 5% (D5W) ADV/MINI-BAG 50 ML IV SCH (15:41)
[2025-02-07 16:04] LABS: C REACTIVE PROTEIN QUANTITATIV < 0.50 MG/DL (<1.0)
[2025-02-07] MEDS: NS (Normal Saline) 0.9% 1,000 ML IV SCH (16:57)
[2025-02-07] MEDS: MORPHINE 10 MG/ML 1 ML VIAL IV PRN (16:57)
[2025-02-07] MEDS: ADVAIR HFA 115/21 MCG INHALER INH SCH (20:00)
[2025-02-07] MEDS ORDERED: TEMAZEPAM 15 MG CAP PO SCH (21:00)
[2025-02-07] MEDS: TEMAZEPAM 7.5 MG CAP PO SCH (21:48)
[2025-02-07 21:59] VITALS: BP 157/96; TEMP 97.2; O2SAT 94
[2025-02-07 22:55] VITALS: BP 149/87; TEMP 97.3; O2SAT 95
[2025-02-08] MEDS: MORPHINE 4 MG/ML 1 ML VIAL IV PRN (01:43)
[2025-02-08 03:41] VITALS: BP 164/90; TEMP 97.6; O2SAT 96
[2025-02-08 04:00] VITALS: BP 164/90; TEMP 97.6; O2SAT 96
[2025-02-08 06:31] LABS: BASO # 0.0 10^3/uL (0.0-0.2); BASO % 0.6 % (0.0-1.0); EOS # 0.1 10^3/uL (0.0-0.5); EOS % 2.7 % (0.0-3.0); LYMPH # 1.8 10^3/uL (1.5-5.0); LYMPH % 36.8 % (24.0-44.0); MONO # 0.4 10^3/uL (0.0-0.8); MONO % 8.0 % (2.0-8.0); NEUTROPHILS # 2.5 10^3/uL (1.5-8.5); NEUTROPHILS % 51.7 % (36.0-66.0); PLATELET COUNT, AUTOMATED 155 10^3/uL (150-450)
[2025-02-08 06:48] LABS: C REACTIVE PROTEIN QUANTITATIV < 0.50 MG/DL (<1.0)
[2025-02-08 06:50] LABS: ALT/SGPT 81 U/L (7.0-40); AST/SGOT 122 U/L (<34); CALCIUM LEVEL 7.5 MG/DL (8.3-10.6); CARBON DIOXIDE LEVEL 25 MMOL/L (20-31); CHLORIDE LEVEL 110 MMOL/L (98-107); CREATININE FOR GFR 0.87 MG/DL (0.70-1.30); GLOMERULAR FILTRATION RATE > 90.0 (>49); MAGNESIUM LEVEL 1.5 MG/DL (1.8-2.4); POTASSIUM SERUM 4.4 MMOL/L (3.5-5.1); SODIUM LEVEL 144 MMOL/L (136-145)
[2025-02-08 08:00] VITALS: BP 143/96; TEMP 97.3; O2SAT 97
[2025-02-08] MEDS: ROSUVASTATIN 10 MG TAB PO SCH (08:44)
[2025-02-08] MEDS: ENOXAPARIN 40 MG/0.4 ML SYRINGE (J1650 PER 10MG) SC SCH (08:44)
[2025-02-08] MEDS: CETIRIZINE 10 MG TAB PO SCH (08:45)
[2025-02-08] MEDS: MAG SULF 1GM/100ML (MAG RUN) 1 GM in IV 1 EA IV SCH (11:35)
[2025-02-08 12:00] VITALS: BP 160/83; TEMP 97.6; O2SAT 95
[2025-02-08] MEDS: ACETAMINOPHEN 325 MG TAB PO PRN (17:15)
[2025-02-08 20:15] VITALS: BP 151/74; TEMP 98.6; O2SAT 97
[2025-02-09 04:02] VITALS: BP 141/79; TEMP 97.2; O2SAT 97
[2025-02-09 06:12] LABS: BASO # 0.0 10^3/uL (0.0-0.2); BASO % 0.6 % (0.0-1.0); EOS # 0.1 10^3/uL (0.0-0.5); EOS % 2.3 % (0.0-3.0); LYMPH # 1.7 10^3/uL (1.5-5.0); LYMPH % 36.2 % (24.0-44.0); MONO # 0.4 10^3/uL (0.0-0.8); MONO % 8.2 % (2.0-8.0); NEUTROPHILS # 2.5 10^3/uL (1.5-8.5); NEUTROPHILS % 52.5 % (36.0-66.0); PLATELET COUNT, AUTOMATED 156 10^3/uL (150-450)
[2025-02-09 06:44] LABS: C REACTIVE PROTEIN QUANTITATIV < 0.50 MG/DL (<1.0)
[2025-02-09 06:51] LABS: ALT/SGPT 63 U/L (7.0-40); AST/SGOT 54 U/L (<34); CALCIUM LEVEL 7.6 MG/DL (8.3-10.6); CARBON DIOXIDE LEVEL 26 MMOL/L (20-31); CHLORIDE LEVEL 110 MMOL/L (98-107); CREATININE FOR GFR 0.83 MG/DL (0.70-1.30); GLOMERULAR FILTRATION RATE > 90.0 (>49); MAGNESIUM LEVEL 1.9 MG/DL (1.8-2.4); POTASSIUM SERUM 4.0 MMOL/L (3.5-5.1); SODIUM LEVEL 144 MMOL/L (136-145)
[2025-02-09] MEDS ORDERED: METR-265 PO (08:05)
[2025-02-09] MEDS ORDERED: MOXI1TAB PO (08:05)
[2025-02-09] MEDS: METAMUCIL PACKET PO SCH (08:14)
== END 2025-02-09 10:53 | disposition home or self-care (01) | DRG 244 ==
LOC: M ED 08:50 → M ED INP 14:18 → M MS4PR 23:10 → OBSVTOIN 02-08 10:04 → EEVIPCON 02-08 10:04
PROVIDERS: ADMIT Internal Medicine; ATTEND Internal Medicine
DX: K57.92 Diverticulitis of intestine, part unspecified, without perforation or abscess without bleeding (principal); I10 Essential (primary) hypertension; I25.10 Atherosclerotic heart disease of native coronary artery without angina pectoris; J44.9 Chronic obstructive pulmonary disease, unspecified; F41.9 Anxiety disorder, unspecified; F32.A Depression, unspecified; F60.89 Other specific personality disorders; N40.0 Benign prostatic hyperplasia without lower urinary tract symptoms; M54.50 Low back pain, unspecified; G89.29 Other chronic pain; Z96.651 Presence of right artificial knee joint; F10.10 Alcohol abuse, uncomplicated; F12.90 Cannabis use, unspecified, uncomplicated; F14.90 Cocaine use, unspecified, uncomplicated; F17.200 Nicotine dependence, unspecified, uncomplicated; M72.0 Palmar fascial fibromatosis [Dupuytren]; Z87.442 Personal history of urinary calculi; Z79.899 Other long term (current) drug therapy

== ENCOUNTER → 2025-02-14 | Outpatient (REF) | payer OTHER ==
[~2025-02-14] MED LIST changes: +FLUT1BLS16 INH; +MOXI1TAB PO
[2025-02-14 17:09] LABS: BASO # 0.0 10^3/uL (0.0-0.2); BASO % 0.5 % (0.0-1.0); EOS # 0.1 10^3/uL (0.0-0.5); EOS % 1.4 % (0.0-3.0); LYMPH # 2.0 10^3/uL (1.5-5.0); LYMPH % 35.3 % (24.0-44.0); MONO # 0.5 10^3/uL (0.0-0.8); MONO % 9.7 % (2.0-8.0); NEUTROPHILS # 2.9 10^3/uL (1.5-8.5); NEUTROPHILS % 52.7 % (36.0-66.0); PLATELET COUNT, AUTOMATED 189 10^3/uL (150-450)
[2025-02-14 17:11] LABS: ALT/SGPT 85 U/L (7.0-40); AST/SGOT 70 U/L (<34); CALCIUM LEVEL 8.4 MG/DL (8.3-10.6); CARBON DIOXIDE LEVEL 30 MMOL/L (20-31); CHLORIDE LEVEL 107 MMOL/L (98-107); CREATININE FOR GFR 0.92 MG/DL (0.70-1.30); GLOMERULAR FILTRATION RATE > 90.0 (>49); POTASSIUM SERUM 4.3 MMOL/L (3.5-5.1); SODIUM LEVEL 145 MMOL/L (136-145)
== END ==
LOC: M LAB REF 16:31
PROVIDERS: ATTEND Nurse Practitioner Family
DX: R19.7 Diarrhea, unspecified (principal); R74.8 Abnormal levels of other serum enzymes

== ENCOUNTER → 2025-03-01 | Outpatient (REF) | payer OTHER | LOC: M LAB REF 16:18 | PROVIDERS: ATTEND Nurse Practitioner Family | DX: R19.7 Diarrhea, unspecified (principal) ==

== ENCOUNTER → 2025-03-01 | Outpatient (CLI) | payer OTHER | LOC: M SLEEP HO 01-14 11:22 | PROVIDERS: ATTEND Nurse Practitioner Family | DX: G47.33 Obstructive sleep apnea (adult) (pediatric) (principal) ==

== ENCOUNTER → 2025-04-11 | Day surgery (SDC) | payer OTHER ==
[~2025-04-11] VITALS: Ht 180.3 cm; Wt 120.2 kg
[2025-04-11 10:58] VITALS: TEMP 98.8
[2025-04-11 11:25] VITALS: O2SAT 96
[2025-04-11 11:40] VITALS: BP 128/64
== END | disposition home or self-care (01) ==
LOC: M OPP 09:47
PROVIDERS: ATTEND Surgery
DX: D12.0 Benign neoplasm of cecum (principal); K64.0 First degree hemorrhoids; K57.32 Diverticulitis of large intestine without perforation or abscess without bleeding; K57.30 Diverticulosis of large intestine without perforation or abscess without bleeding; G47.30 Sleep apnea, unspecified; Z95.5 Presence of coronary angioplasty implant and graft; Z88.8 Allergy status to other drugs, medicaments and biological substances; Z79.51 Long term (current) use of inhaled steroids; Z79.899 Other long term (current) drug therapy; J44.9 Chronic obstructive pulmonary disease, unspecified; F17.210 Nicotine dependence, cigarettes, uncomplicated

== ENCOUNTER → 2025-04-12 | Outpatient (CLI) | payer OTHER | LOC: M SLEEP 20:00 | PROVIDERS: ATTEND Physician Assistant | DX: G47.33 Obstructive sleep apnea (adult) (pediatric) (principal) ==

== ENCOUNTER → 2025-04-18 | Outpatient (REF) | payer OTHER ==
[2025-04-18 17:31] LABS: ALT/SGPT 31.0 U/L (7.0-40); AST/SGOT 28.0 U/L (<34)
== END ==
LOC: M LAB REF 16:15
PROVIDERS: ATTEND Nurse Practitioner Family
DX: R79.89 Other specified abnormal findings of blood chemistry (principal)